=== PATIENT | female | born 1960 | race Caucasian/White ===

== ENCOUNTER 2023-06-03 14:27 | Inpatient (IN) | payer MEDICAID, SELFPAY ==
[2023-06-03] VITALS (18 sets, daily range): BP systolic 144–191; BP diastolic 78–145; PULSE 81–106; RESP 12–24; TEMP 35.5–36.6; O2SAT 88–98; BMI 34.3; BMI 31.1
--- NOTE | 2023-06-03 14:34 | EDS_ITS ---
HPI History of Present Illness Chief Complaint: Shortness of Breath Informant: patient and family Onset/Context/Timing Onset: Weeks Context: gradual Timing: Continuous Quality: Positive for Dyspnea on exertion and Orthopnea Current Severity: Moderate Maximum Severity: Moderate Worsened by: Exertion, Lying flat and Coughing Relieved by: Nothing Associated Symptoms cough and fever Narrative Narrative: 63-year-old, has not seen a doctor for years. Believes she has a history of COPD. Smoker. No home O2. Currently is not on any medications. No allergies. Has not been in the hospital for a lengthy period of time. States she has had increasing shortness of breath of the last several months. Recently has subjective fever and blood-tinged sputum. Denies any drastic weight change. Has lower extremity swelling also. No prior PE or DVT. PE Risk Factors: Negative for Cancer, OCP + Smoking + > 35, Prior DVT or PE, Recent immobilization, Recent surgery or Recent travel Prior similar symptoms: Yes Recent Illness/Hospitalization: No PFSH PFSH Medical History COPD (chronic obstructive pulmonary disease) Allergy/AdvReac Type Severity Reaction Status Date / Time No Known Allergies Allergy Verified 06/03/23 14:31 Surgical History History of right hip replacement Social History Smoking Status: Former smoker ROS ROS ED ROS Narrative Shortness of breath. Cough. Subjective fever. Review of Systems ROS Unobtainable: Denies due to encephalopathy Constitutional Constitutional ED: Reports fever(s); Denies chills Eyes Eyes: Denies blurry vision ENT ENT ED: Denies ear pain Cardiovascular Cardiovascular: Reports chest pain and orthopnea Respiratory/Chest Respiratory/Chest: Reports cough, dyspnea, dyspnea on exertion and orthopnea Gastrointestinal Gastrointestinal: Denies abdominal pain, constipation, diarrhea, melena, nausea or vomiting Genitourinary Genitourinary ED: Denies dysuria or hematuria Musculoskeletal Musculoskeletal: Denies arthralgias Integumentary Denies abscess Neurologic Neurologic: Denies headache(s) Psychiatric Psychiatric: Denies anxiety Endocrine Endocrinology: Denies cold intolerance Hematologic/Lymphatic Hematologic/Lymphatic: Denies easy bleeding or easy bruising Allergic/Immunologic Allergic/Immunologic ED: Denies mouth swelling or tongue swelling EXAM Physical Exam Narrative Exam Narrative: 63-year-old female respiratory distress. As called to the room on arrival the p theron's oxygen was 64%. She had labored breathing but greatly improved quickly with oxygen. Her sister was present in the room. Initial blood pressure 191/145. Afebrile at 96. Oxygen saturation 64% on room air. 96% with a nonrebreather. H EENT exam unremarkable. Neck nontender no JVD. Lungs diminished breath sounds at both bases. Few scattered wheezes. Heart tachycardic rate about 105 no murmur. Chest wall nontender. Abdomen soft nontender. 1+ pitting edema both lower extremities. 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 Normal dorsi plantarflexion. Awake alert. Answering questions following c ommands. No focal deficits. Const Vital Signs: 06/03/23 14:28 06/03/23 14:33 06/03/23 14:33 Temperature 96.0 F L Temperature Source Temporal Pulse Rate 106 H 103 H Respiratory Rate 17 15 Respiratory Effort Respiratory Depth Respiratory Pattern Blood Pressure 191/145 H 168/115 H Blood Pressure Mean 160 132 Pulse Ox 92 98 96 Oxygen Delivery Method Non-Rebreather Non-Rebreather @ 15L/min Non-Rebreather Oxygen Flow Rate (L/min) 06/03/23 14:45 06/03/23 14:45 06/03/23 14:46 Temperature 96 F L Temperature Source Temporal Pulse Rate 97 98 Respiratory Rate 22 H 22 H Respiratory Effort Respiratory Depth Respiratory Pattern Tachypnea Blood Pressure 144/95 H Blood Pressure Mean 111 Pulse Ox 93 94 Oxygen Delivery Method High Flow Non-Rebreather Oxygen Flow Rate (L/min) 10 06/03/23 14:46 06/03/23 15:09 Temperature Temperature Source Pulse Rate 98 Respiratory Rate 18 Respiratory Effort Short of Breath Labored Respiratory Depth Shallow Respiratory Pattern Blood Pressure 160/87 H Blood Pressure Mean 111 Pulse Ox 93 Oxygen Delivery Method Non-Rebreather Room Air Oxygen Flow Rate (L/min) Positive well nourished and well developed; Negative for cachectic, contractures or unkempt General Appearance ED: well developed; Negative for unkempt, cachectic, contractures, NAD or pallor Nutritional Appearance: Negative for cachectic HEENT Reports moist mucous membranes; Denies dry mucous membranes atraumatic; Negative for trauma or tenderness Mouth ED: No dry mucous membranes Mouth: No dry mucous membranes Eyes PERRL and EOMs intact bilaterally General Eye ED: Negative for pale conjunctiva or scleral icterus Neck no lymphadenopathy, supple, no meningeal signs and no JVD General: Negative for tenderness Lymph Lymphatic: Negative for other Chest Wall Chest: Negative for other Resp No normal respiratory effort and No clear to auscultation bilaterally Resp Narrative: Diminished breath sounds bilaterally. Few scattered wheezes. No appreciable rales or rhonchi. Effort and Inspection: Negative for pain with movement Auscultation: wheezes and diminished lung sounds; Negative for rales or rhonchi Cardio regular rhythm, S1 normal heart sound, S2 normal heart sound and no murmurs; Negative for regular rate Rate: tachycardic GI non-tender, non-distended and no masses Inspection: Negative for other Auscultation: normoactive bowel sounds Palpation: soft; Negative for tender, guarding, mass or rebound tenderness present Back/Spine no CVA tenderness and normal to inspection General Back: Negative for CVA tenderness Extremity normal to inspection General Extremety ED: Yes edema; Negative for tenderness General Extremity: edema Neuro oriented x3 and CN's II-XII intact bilaterally Sensorium / Orientation: alert, oriented to person, oriented to place and oriented to time; Negative for orientation impaired, confused, lethargic or stuporous Speech: speech normal Gait (Neuro): Negative for normal gait Motor Exam: strength 5/5 throughout; Negative for general weakness or strength abnormal Psych mental status grossly normal Appearance: Negative for unkempt Attitude: No agitated Mood & Affect: Negative for depressed, anxious or tearful Thought Process: normal thought process Skin no wounds and skin turgor normal General Skin Exam: Negative for jaundice or pallor Rashes: no rashes Trauma: Negative for abrasion MDM MDM MDM Narrative Medical decision making narrative: 63-year-old female history of underlying COPD and smoker. Increasing shortness of breath over the last several weeks to months. Has not seen a doctor for many years and currently is not on any medications. This may be a COPD exacerbation and/or CHF versus pneumonia, RI. Unlikely to be PE. She has no risk factors no prior history. She undergo cardiac workup. She is much improved with oxygen. She will receive albuterol and DuoNeb aerosols and Solu-Medrol IV. Repeat exam patient is doing better on oxygen. I think this is a combination of a COPD flare with secondary CHF. Given the swelling in her legs which is new and the BNP. Also the chest x-ray. She will be treated with IV Lasix until the aerosols and steroids she is already obtained. I spoke to the hospitalist she will be admitted to the PCU. He may get oncology hematology involved due to her hemoglobin of 21. History & Record Review Discussion w/independent historian: Patient and Family Lab Data Attestation: I reviewed the patient's lab results. Lab results narrative: CBC shows a white count of 6. H&H of 21 and 65. Platelets 141. No old labs available for comparison. Chemistries show a gap of 7 normal BUN and creatinine to seven 0.7. Troponin is normal at 18. BNP is elevated at 490. Labs: Laboratory Results - last 24 hr 06/03/23 14:31 WBC 6.1 RBC 6.68 H Hgb 21.1 H* Hct 65.7 H MCV 98.4 MCH 31.6 MCHC 32.1 RDW Std Deviation 56.5 H RDW Coeff of Nick 16.9 H Plt Count 141 L MPV 9.8 Immature Gran % (Auto) 0.500 Neut % (Auto) 79.2 H Lymph % (Auto) 10.9 L [place] % (Auto) 7.4 Eos % (Auto) 1.2 Baso % (Auto) 0.8 Absolute Neuts (auto) 4.8 Absolute Lymphs (auto) 0.66 L Nucleated RBC % 0 Diff Path Review May foll Sodium 140 Potassium 4.0 Chloride 100 Carbon Dioxide 33.0 H Anion Gap 7 BUN 7 Creatinine 0.74 Estim Creat Clear Calc 66.32 Est GFR (MDRD) Af Amer 102 Est GFR (MDRD) Non-Af 85 BUN/Creatinine Ratio 9.5 L Glucose 140 H Calcium 8.9 Troponin I High Sens 18 B-Natriuretic Peptide 490.7 H Radiography Chest X-Ray - ED: 1 View, Read by ED Physician and Right Effusion Diagnostic Testing: Clinical Impression(s) from Imaging Studies Chest X-Ray 06/03/23 14:58 IMPRESSION: Findings suggestive of a CHF with bibasilar atelectasis worse on the right side and small right pleural effusion. Electronically Signed: Joaquim Montenegro MD at 15:16 EDT , Chest x-ray, portable, single view interpreted by myself shows right lower lobe either infiltrate or possible effusion. Rhythm Strip Rhythm Strip: Sinus Rhythm Rate: 99 Ectopy: None EKG Initial EKG: Attestation: I personally reviewed and interpreted this EKG as follows: Interpretation: Sinus Rhythm and No Acute Injury Pattern Comments: # Rhythm rate 99 no acute signs of RI or ischemia. Prior EKG tracings: not available for review Prior: No Prior Discharge Plan Triage Chief Complaint: Shortness of Breath ED Provider: Moisés Cho Dx/Rx/DC Orders Clinical Impression: Acute dyspnea, Elevated hemoglobin, CHF (congestive heart failure), Hypoxia, Acute exacerbation of chronic obstructive pulmonary disease Primary Care Provider: Care Physician,No Primary Referrals: Deejay Shi MD [Non-Staff] - Disposition Disposition: Acute Care Hospital [facility]
--- NOTE | 2023-06-03 14:37 | ED.RN ---
RN AT BEDSIDE TO OBTAIN COVID SWAB. PT STATES OH NO YOU ARE NOT, YOU ARE COMING ANYWHERE NEAR ME WITH COVID. RN EXPLAINED THAT THE SWAB IS TO CHECK FOR COVID, NOT ADMINISTER COVID AND PATIENT STILL REFUSED.
[2023-06-03] MEDS: Albuterol 2.5 MG/3 ML VIAL.NEB. INHALATION (14:45)
[2023-06-03] MEDS: Ipratropium/Albuterol Sulfate 3 ML AMPUL.NEB INHALATION ×2 (14:45→23:06)
--- NOTE | 2023-06-03 14:45 | EKG12_ITS ---
Test Reason : SOB Blood Pressure : / mmHG Vent. Rate : 099 BPM Atrial Rate : 099 BPM P-R Int : 140 ms QRS Dur : 074 ms QT Int : 374 ms P-R-T Axes : 082 121 042 degrees QTc Int : 479 ms Normal sinus rhythm Biatrial enlargement Right axis deviation Pulmonary disease pattern Nonspecific T wave abnormality Prolonged QT Abnormal ECG Confirmed by RIAZ MOSQUEDA, DYLAN ([id number]), editor managing director EUGENE SANTOS ([id number]) on 06/08/2023 8:11:40 AM Referred By: Confirmed By:WENDY MELLO MD
--- NOTE | 2023-06-03 14:58 | RAD_ITS ---
STUDY: X-RAY CHEST REASON FOR EXAM: Female, 63 years old. Chest pain. TECHNIQUE: Single AP portable view of the chest. COMPARISON: None. FINDINGS: EKG electrodes are seen. Vascular congestion and mild degree of CHF. Bibasilar atelectasis slightly worse on the right side with blunting of the right costophrenic angle. Normal size heart. Normal mediastinum and mary. Normal visualized pulmonary arteries. There is atherosclerotic calcification of the aortic arch with tortuosity. There are diffuse degenerative changes of the visualized thoracic spine. Normal visualized ribs, clavicles, and shoulders. There is no demonstrated abnormality of the visualized soft tissue structures of the upper abdomen. RAD/Chest 1 View (Portable) IMPRESSION: Findings suggestive of a CHF with bibasilar atelectasis worse on the right side and small right pleural effusion. Electronically Signed: Joaquim Montenegro MD at 15:16 EDT ,
[2023-06-03 15:01] LABS: Absolute Lymphocyte Count 0.66 X10^3/uL (0.83-4.51); Absolute Neutrophil Count 4.8 X10^3/uL (2.0-7.7); Basophil# 0.05 X10^3/uL; Basophil% 0.8 % (0-1); Eosinophil# 0.07 X10^3/uL; Eosinophils% 1.2 % (0-5); Hemoglobin 21.1 g/dL (12.0-15.0); Lymphocyte # 0.66 X10^3/ul (0.83-4.51); Lymphocyte % 10.9 % (19-41); Mean Corp Hgb Conc 32.1 g/dL (32-36); Mean Corpuscular Hgb 31.6 pg (27.0-32.0); Mean Corpuscular Volume 98.4 fL (81-99); Mean Platelet Vol. 9.8 fl (6.2-12.0); Monocyte# 0.45 X10^3/uL; Monocyte% 7.4 % (0-10); NRBC Flagged by Analyzer 0 % (0-5); Neutrophil % 79.2 % (47-70); Platelet Count 141 K/mm3 (150-450); RBC Distribution Width CV 16.9 % (11.6-14.6); RBC Distribution Width SD 56.5 fl (35.1-43.9); Red Blood Count 6.68 M/mm3 (4.2-5.4); White Blood Count 6.1 K/mm3 (4.4-11.0)
[2023-06-03 15:02] LABS: Hematocrit 65.7 % (37-47)
[2023-06-03] MEDS: MethylPREDNISolone 125 MG/2 ML Vial IV (15:07)
[2023-06-03 15:16] LABS: Anion Gap 7 (5-15); BUN 7 mg/dL (7-18); BUN/Creat Ratio 9.5 RATIO (10-20); Calcium,Total 8.9 mg/dL (8.5-10.1); Chloride 100 mmol/L (98-107); Creatinine, Serum 0.74 mg/dL (0.55-1.02); EST Glomerular Filtration Rate 85 mL/min (>60); Est Glom Filt Rate - Afr Amer 102 mL/min (>60); Estimated Creatinine Clearance 66.32 ml/min; Glucose 140 mg/dL (74-106); Sodium Level 140 mmol/L (136-145); Troponin-I HS 18 pg/mL (3.0-54.0)
[2023-06-03 15:54] LABS: BNP,B-Type NATRIURETIC PEPTIDE 490.7 pg/mL (0-100)
--- NOTE | 2023-06-03 16:18 | NURSING ---
PCU TERELETSKY COPD FLAIR, HYPOXIA, CHF, ELEVATED HEMOGLOBIN
--- NOTE | 2023-06-03 16:20 | ED.RN ---
Purewick catheter applied
[2023-06-03] MEDS: Furosemide 40 MG/4 ML Vial IV ×2 (16:25→21:10)
--- NOTE | 2023-06-03 17:34 | HP.PCM.HOS_ITS ---
HPI - General General Date of Admission: 06/03/23 Date of Service: 06/03/23 Chief Complaint: Shortness of breath HPI Narrative DOUG DE LA TORRE, is a 63 F who presents to the emergency room at [facility] with chief complaint of shortness of breath over the last several days, patient denies any chest pain. Patient has a history of COPD, she has not been to a physician in 5 years, she takes no medications. Patient was noted to have a pulse ox of 64% on room air at triage. Evaluation of the patient in the emergency room revealed her to be tachypneic and cyanotic, she appeared to have moderate respiratory distress on examination. Patient had generalized edema of both lower legs along with water droplets over the skin of her lower legs. Patient was alert and able to answer simple questions. Workup in the emergency room included labs which showed an elevated hemoglobin at 21.1, chemistry profile was unremarkable, beta natruretic peptide was elevated at 490. Patient's chest x-ray showed evidence of vascular congestion- findings were suggestive of CHF with bibasilar atelectasis worse on the right side and the small right pleural effusion. I talked with by phone about the patient's elevated hemoglobin, he recommended obtaining a lab test which I put him as a miscellaneous lab test, he recommends the patient see him in the office in 2 weeks, he does not feel he needs to see the patient in the hospital. Patient will be admitted to PCU, she will be given IV Lasix, an echocardiogram will be performed, she will be placed on aerosol treatments, I do not feel that she has a flareup of COPD at this point-there is no wheezing on auscultation of her lung hernández today, she had some bibasilar crackles and decreased breath sounds overall. [facility] Medical History COPD (chronic obstructive pulmonary disease) Home Medications naproxen sodium 220 mg capsule (Aleve) 440 mg PO DAILY PRN pain 06/03/23 [History Last Taken Unknown] Allergy/AdvReac Type Severity Reaction Status Date / Time No Known Allergies Allergy Verified 06/03/23 14:31 Surgical History History of right hip replacement Social History Smoking Status: Former smoker ROS Constitutional Constitutional: Reports weakness; Denies anorexia, change in weight, chills, fatigue, fever(s) or night sweats Eyes Eyes: Denies blurry vision, change in vision, discharge from eye(s) or eye pain Cardiovascular Cardiovascular: Reports dyspnea on exertion and edema; Denies chest pain, claudication, palpitations or rapid heart rate Respiratory/Chest Respiratory/Chest: Reports shortness of breath at rest and shortness of breath with exertion; Denies cough or hemoptysis Gastrointestinal Gastrointestinal: Denies abdominal pain, constipation, diarrhea, hematemesis, hematochezia, melena, nausea or vomiting Genitourinary Genitourinary: Denies dysuria, hematuria, urinary frequency, urinary hesitancy, urinary incontinence or urinary urgency Musculoskeletal Musculoskeletal: Denies back pain, joint pain, joint stiffness, joint swelling, myalgias or neck pain Neurologic Neurologic: Denies abnormal gait, abnormal speech, confusion, disequilibrium, dizziness, focal weakness, headache(s), loss of vision, numbness, other visual disturbances, paresthesias, syncope or tingling Psychiatric Psychiatric: Denies anxiety, cognitive impairment, depression, irritability, mood swings or suicidal ideation Endocrine Endocrinology: Denies change in body appearance, cold intolerance, excessive sweating, heat intolerance, polydipsia or polyuria Hematologic/Lymphatic Hematologic/Lymphatic: Denies none, anemia, easy bleeding, easy bruising or lymphadenopathy Allergic/Immunologic Allergic/Immunologic: Denies rhinitis, urticaria, eczemia or asthma Vital Signs Vital Signs Vital Signs: 06/03/23 14:28 06/03/23 14:33 06/03/23 14:33 Temperature 96.0 F L Temperature Source Temporal Pulse Rate 106 H 103 H Respiratory Rate 17 15 Respiratory Effort Respiratory Depth Respiratory Pattern Blood Pressure 191/145 H 168/115 H Blood Pressure Mean 160 132 Pulse Ox 92 98 96 Oxygen Delivery Method Non-Rebreather Non-Rebreather @ 15L/min Non-Rebreather Oxygen Flow Rate (L/min) 06/03/23 14:45 06/03/23 14:45 06/03/23 14:46 Temperature 96 F L Temperature Source Temporal Pulse Rate 97 98 Respiratory Rate 22 H 22 H Respiratory Effort Respiratory Depth Respiratory Pattern Tachypnea Blood Pressure 144/95 H Blood Pressure Mean 111 Pulse Ox 93 94 Oxygen Delivery Method High Flow Non-Rebreather Oxygen Flow Rate (L/min) 10 06/03/23 14:46 06/03/23 15:09 06/03/23 16:07 Temperature Temperature Source Pulse Rate 98 89 Respiratory Rate 18 17 Respiratory Effort Short of Breath Labored Respiratory Depth Shallow Respiratory Pattern Blood Pressure 160/87 H Blood Pressure Mean 111 Pulse Ox 93 92 Oxygen Delivery Method Non-Rebreather High Flow Nasal Cannula Oxygen Flow Rate (L/min) 8 8 06/03/23 16:07 06/03/23 16:11 06/03/23 16:55 Temperature 97 F L 97 F L Temperature Source Tympanic Tympanic Pulse Rate 89 89 87 Respiratory Rate 17 21 H 16 Respiratory Effort Respiratory Depth Respiratory Pattern Blood Pressure 158/85 H 158/85 H 159/78 H Blood Pressure Mean 109 109 105 Pulse Ox 92 91 92 Oxygen Delivery Method High Flow High Flow High Flow Oxygen Flow Rate (L/min) 8 8 8 Weight Weight: 87.6 kg Body Mass Index (BMI) 31.1 Physical Exam Const alert, oriented x3 and no apparent distress Constitutional Narrative: Patient appears older than her stated age General Appearance: cooperative and well developed Orientation / Consciousness: awake, oriented to person, oriented to place and oriented to time HEENT normocephalic, head/scalp atraumatic, hearing grossly normal bilaterally and moist oral mucous membranes Eyes PERRL, EOMs intact bilaterally and conjunctivae normal Neck supple, no JVD, thyroid normal and no carotid bruits General: trachea midline Resp Resp Narrative: Patient is tachypneic, she is using accessory muscles, she appears in moderate respiratory distress, patient has decreased breath sounds bilaterally with inspiratory rales at the bases Auscultation: rales bilateral lower; Negative for rhonchi or wheezes Cardio regular rate, regular rhythm, S1 normal heart sound, S2 normal heart sound, no murmurs, no rub and no gallops GI normal to inspection, nondistended, normoactive bowel sounds, soft to palpation, non-tender and non-distended Extremity Extremity Narrative: Patient has generalized edema over both lower legs with weeping of fluid from the skin, patient has evidence of cyanosis of her toes and lower legs on first exam Skin no rashes or lesions noted General Skin Exam: no breakdown Neuro oriented x3, CN's II-XII intact bilaterally, moves all extremities, no focal motor deficits and no sensory deficits noted Sensorium / Orientation: awake, alert, oriented to person, oriented to place and oriented to time Speech: speech normal Psych affect normal Results Lab / Micro Data 06/03/23 14:31 06/03/23 14:31 Labs: Laboratory Results - last 24 hr 06/03/23 14:31: WBC 6.1, RBC 6.68 H, Hgb 21.1 H*, Hct 65.7 H, MCV 98.4, MCH 31.6, MCHC 32.1, RDW Std Deviation 56.5 H, RDW Coeff of Nick 16.9 H, Plt Count 141 L, MPV 9.8, Immature Gran % (Auto) 0.500, Neut % (Auto) 79.2 H, Lymph % (Auto) 10.9 L, [place] % (Auto) 7.4, Eos % (Auto) 1.2, Baso % (Auto) 0.8, Absolute Neuts (auto) 4.8, Absolute Lymphs (auto) 0.66 L, Nucleated RBC % 0, Diff Path Review May foll, Sodium 140, Potassium 4.0, Chloride 100, Carbon Dioxide 33.0 H, Anion Gap 7, BUN 7, Creatinine 0.74, Estim Creat Clear Calc 66.32, Est GFR (MDRD) Af Amer 102, Est GFR (MDRD) Non-Af 85, BUN/Creatinine Ratio 9.5 L, Glucose 140 H, Calcium 8.9, Troponin I High Sens 18, B-Natriuretic Peptide 490.7 H Rhythm Strip Rhythm Strip: Sinus Rhythm Rate: 99 Ectopy: None Radiology Impression Chest X-Ray 06/03/23 14:58 IMPRESSION: Findings suggestive of a CHF with bibasilar atelectasis worse on the right side and small right pleural effusion. Electronically Signed: Joaquim Montenegro MD at 15:16 EDT , Assessment & Plan Assessment/Plan (1) CHF (congestive heart failure): PLAN: Plan 1. Acute hypoxic respiratory failure-patient will be admitted to PCU, pulse ox will be monitored, patient will receive IV diuresis and aerosol treatments. #2 acute congestive heart failure-type unknown, patient will have an echocardiogram performed, she will be given IV Lasix and labs will be monitored, chest x-ray will be repeated tomorrow #3 chronic obstructive pulmonary disease-patient will be placed on DuoNeb aerosols and budesonide aerosols, I do not think the patient needs IV Solu- Medrol at this point #4 increased hemoglobin-etiology unclear, again I have ordered a test through [facility], patient will need follow-up with Dr Coulter in 2 weeks in the office after she is discharged #5 noncompliance with medical regimen-complicates care, medical course, recovery, and prognosis Total clinical time spent by myself addressing the patient's medical issues, reviewing her data, and collaborating with patient's care team: 55 minutes Charges/Coding Visit Charges Inpatient E&M: 76037 Init Hosp L2
--- NOTE | 2023-06-03 18:23 | ECHOD_ITS ---
Reason For Study: CHF Procedure This was a 2D Doppler, Color Flow transthoracic echocardiogram. Exam performed portable in patient room. Left Ventricle Normal LV size. The estimated ejection fraction is 65 %. Normal diastology for age. No regional wall motion abnormalities noted. Right Ventricle Normal RV size. Normal systolic function. Atria Normal left atrium. Normal right atrium. No doppler evidence for ASD. Mitral Valve There is moderate mitral annular calcification. There is no mitral valve stenosis. No mitral valve insufficiency. Tricuspid Valve There is no tricuspid stenosis. Unable to estimate RV systolic pressure due to insufficient tricuspid regurgitant envelope. Trivial tricuspid valve insufficiency. Aortic Valve Trisinus/trileaflet aortic valve. There is no aortic stenosis. No aortic valve insufficiency. Pulmonic Valve There is no pulmonic valvular stenosis. No pulmonic valve insufficiency. Great Vessels Normal aortic root. Pericardium/Pleural No pericardial effusion. MMode/2D Measurements & Calculations LVIDd: 4.2 cm IVSd: 1.2 cm Ao root diam: 3.3 cm LVIDs: 2.6 cm LVPWd: 1.2 cm RVDd: 3.6 cm FS: 37.5 % LAV(MOD-bp): 50.3 ml LVAd ap4: 20.0 cm2 LVAd ap2: 18.5 cm2 LAV(MOD-bp) Indexed: 25.2 ml/m2 LVLd ap4: 6.7 cm LVLd ap2: 6.2 cm LAV(MOD-sp2): 52.4 ml EDV(MOD-sp4): 48.9 ml EDV(MOD-sp2): 48.4 ml LAV(MOD-sp4): 47.8 ml EDV(sp4-el): 51.0 ml EDV(sp2-el): 46.7 ml LVAs ap4: 9.4 cm2 LVAs ap2: 8.7 cm2 LVLs ap4: 6.0 cm LVLs ap2: 5.0 cm ESV(MOD-sp4): 13.0 ml ESV(MOD-sp2): 14.1 ml ESV(sp4-el): 12.4 ml ESV(sp2-el): 13.0 ml EF(MOD-sp4): 73.3 % EF(MOD-sp2): 70.9 % EF(sp4-el): 75.6 % SV(MOD-sp4): 35.8 ml SV(MOD-sp2): 34.4 ml SV(sp4-el): 38.6 ml LA dimension(2D): 4.4 cm LA A4 area: 18.1 cm2 RA A4 area: 17.4 cm2 Time Measurements MV dec time: 0.31 sec Doppler Measurements & Calculations MV E max robin: 69.6 cm/sec Lat Peak E' Orbin: 5.9 cm/sec Med Peak E' Robin: 4.8 cm/sec MV A max robin: 111.4 cm/sec E/E' lat: 11.8 E/E' med: 14.5 MV E/A: 0.62 MV V2 max: 130.1 cm/sec MV P1/2t max robin: 71.9 cm/sec Ao V2 max: 120.5 cm/sec MV max P.8 mmHg MV P1/2t: 91.6 msec Ao max P.8 mmHg MV V2 mean: 67.0 cm/sec MV dec slope: 230.0 cm/sec2 Ao V2 mean: 84.8 cm/sec MV mean P.1 mmHg Ao mean P.3 mmHg MV V2 VTI: 20.5 cm MVA(P1/2t): 2.4 cm2 Ao V2 VTI: 26.3 cm AV (velocity ratio): 0.78 LV V1 max: 103.6 cm/sec PA V2 max: 107.1 cm/sec LV V1 max P.3 mmHg PA V2 mean: 70.3 cm/sec LV V1 mean P.7 mmHg LV V1 mean: 60.5 cm/sec LV V1 VTI: 20.4 cm ECHO/Echo Complete Interpretation Summary The estimated ejection fraction is 65 %. Ordering Physician: Harley Mcgee Referring Physician: CARLEY PCP Performed By: Leigh Ann Tong, KELLYCS, RVT
[2023-06-03] MEDS: 0.9% Saline Lock 10 ML Syringe IV (21:10)
[2023-06-03] MEDS: Heparin Injection (Vial) 5,000 UNIT/ML VIAL 5000 UNIT SC (21:10)
[2023-06-03] MEDS: Nystatin Powder 15gm Bottle 1 APPLIC TOPICAL (21:10)
[2023-06-03] MEDS: Budesonide Respules 0.5 MG/2 ML AMPUL.NEB. INHALATION (23:06)
[2023-06-04] VITALS (12 sets, daily range): BP systolic 99–134; BP diastolic 64–75; PULSE 74–91; RESP 12–30; TEMP 36.2–36.6; O2SAT 90–98; BMI 31.1
[2023-06-04] MEDS: Nystatin Powder 15gm Bottle 1 APPLIC TOPICAL ×3 (04:53→21:20)
[2023-06-04] MEDS: Furosemide 40 MG/4 ML Vial IV ×3 (04:53→21:20)
[2023-06-04] MEDS: 0.9% Saline Lock 10 ML Syringe IV ×2 (04:54→13:19)
--- NOTE | 2023-06-04 05:55 | RAD_ITS ---
INDICATION: CHF EXAMINATION/TECHNIQUE: X-RAY - XR Chest 1 View COMPARISON: 06/03/2023. FINDINGS: LINES/DEVICES: None. LUNGS: Bibasilar atelectasis versus infiltrates. Small bilateral pleural effusions. No evidence of a pneumothorax. MEDIASTINUM AND CARDIOVASCULAR STRUCTURES: Cardiac silhouette is normal in size and contour. Mediastinum is unremarkable. BONES AND SOFT TISSUES: No acute abnormality. RAD/Chest 1 View (Portable) IMPRESSION: Bibasilar atelectasis versus infiltrates and small bilateral pleural effusions. Electronically Signed: Harinder Mcdaniels DO at 6:28 EDT ,
[2023-06-04 06:35] LABS: Absolute Lymphocyte Count 0.39 X10^3/uL (0.83-4.51); Absolute Neutrophil Count 3.6 X10^3/uL (2.0-7.7); Basophil# 0.02 X10^3/uL; Basophil% 0.5 % (0-1); Lymphocyte # 0.39 X10^3/ul (0.83-4.51); Lymphocyte % 9.3 % (19-41); Mean Corp Hgb Conc 32.2 g/dL (32-36); Mean Corpuscular Hgb 30.8 pg (27.0-32.0); Mean Corpuscular Volume 95.8 fL (81-99); Mean Platelet Vol. 9.6 fl (6.2-12.0); Monocyte% 4.8 % (0-10); NRBC Flagged by Analyzer 0 % (0-5); Neutrophil # 3.56 X10^3/uL (2.7-7.7); Neutrophil % 84.9 % (47-70); POSITIVE DIFFERENTIAL YES; Platelet Count 161 K/mm3 (150-450); RBC Distribution Width CV 16.1 % (11.6-14.6); RBC Distribution Width SD 52.9 fl (35.1-43.9); Red Blood Count 6.49 M/mm3 (4.2-5.4); White Blood Count 4.2 K/mm3 (4.4-11.0)
[2023-06-04 06:38] LABS: Hematocrit 62.2 % (37-47)
[2023-06-04 06:39] LABS: Differential Indicated SCAN CRITERIA MET
[2023-06-04 07:01] LABS: Differential Comment SCANNED
[2023-06-04 07:06] LABS: Anion Gap 6 (5-15); BUN 10 mg/dL (7-18); BUN/Creat Ratio 14.1 RATIO (10-20); Chloride 97 mmol/L (98-107); Creatinine, Serum 0.71 mg/dL (0.55-1.02); EST Glomerular Filtration Rate 88 mL/min (>60); Est Glom Filt Rate - Afr Amer 107 mL/min (>60); Estimated Creatinine Clearance 74.94 ml/min; Glucose 116 mg/dL (74-106); Potassium 3.9 mmol/L (3.5-5.1); Sodium Level 139 mmol/L (136-145)
[2023-06-04] MEDS: Ipratropium/Albuterol Sulfate 3 ML AMPUL.NEB INHALATION ×3 (07:12→19:13)
[2023-06-04] MEDS: Budesonide Respules 0.5 MG/2 ML AMPUL.NEB. INHALATION ×2 (07:30→19:13)
--- NOTE | 2023-06-04 09:18 | CASEMGMT ---
Addendum entered by Homa Boyle 06/04/23 09:52: Social Work SW called both [employer] and [employer], neither had any resources for low or no cost house cleaning. SW spoke w/pt again, explained this to her. She is open to a referral to [facility], referral made. She also asked for information on local house cleaning agencies, states is willing to pay for services. SW looked up local cleaning agencies and provided pt a list of agencies. SW remains available for any additional resources. SYDNI Jimenez Original Note: Social Work SW saw pt for SDOH trigger and for self pay status. SW informed pt that someone from [employer] should be reaching out to help with a Medicaid application. Multiple resources given as well, as outlined in the SDOH assessment. SYDNI Jimenez
[2023-06-04] MEDS: Heparin Injection (Vial) 5,000 UNIT/ML VIAL 5000 UNIT SC ×2 (10:09→21:21)
--- NOTE | 2023-06-04 11:26 | PN_ITS ---
Subjective Subjective Patient seen and examined. SHe stil remains short of breath. She is on BIPAP and couldnt be weaned off BIPAP. She denied any chest pain, palpitations, dizziness or any other symptoms. Review of systems is otherwise negative. She has otherwise remained hemodynamically stable. Objective Data Objective Data Vital Signs: Vital Signs Temp Pulse Resp BP Pulse Ox O2 Del Method O2 Flow Rate 97.4 F L 74 20 H 127/66 H 94 Bi-pap 8 06/04/23 09:12 06/04/23 09:12 06/04/23 09:12 06/04/23 09:12 06/04/23 09:12 06/04/23 09:12 06/03/23 16:55 FiO2 80 06/04/23 09:12 Oxygen Flow Rate (L/min) 8 Oxygen Delivery Method Bi-pap Weight: 193 lb 1.999 oz Body Mass Index (BMI) 31.1 Intake & Output: Intake and Output for Last 24 Hours 06/02/23 06/03/23 06/04/23 23:59 23:59 23:59 Intake Total 100 / 100 120 / 120 Output Total 1600 / 1600 400 / 400 Balance -1500 / -1500 -280 / -280 Lab / Micro Data 06/04/23 06:08 06/04/23 06:08 Labs: Laboratory Results - last 24 hr 06/03/23 14:31: WBC 6.1, RBC 6.68 H, Hgb 21.1 H*, Hct 65.7 H, MCV 98.4, MCH 31.6, MCHC 32.1, RDW Std Deviation 56.5 H, RDW Coeff of Nick 16.9 H, Plt Count 141 L, MPV 9.8, Immature Gran % (Auto) 0.500, Neut % (Auto) 79.2 H, Lymph % (Auto) 10.9 L, Whitley % (Auto) 7.4, Eos % (Auto) 1.2, Baso % (Auto) 0.8, Absolute Neuts (auto) 4.8, Absolute Lymphs (auto) 0.66 L, Nucleated RBC % 0, Diff Path Review May foll, Sodium 140, Potassium 4.0, Chloride 100, Carbon Dioxide 33.0 H, Anion Gap 7, BUN 7, Creatinine 0.74, Estim Creat Clear Calc 66.32, Est GFR (MDRD) Af Amer 102, Est GFR (MDRD) Non-Af 85, BUN/Creatinine Ratio 9.5 L, Glucose 140 H, Calcium 8.9, Troponin I High Sens 18, B-Natriuretic Peptide 490.7 H 06/04/23 06:08: WBC 4.2 L, RBC 6.49 H, Hgb 20.0 H*, Hct 62.2 H, MCV 95.8, MCH 30.8, MCHC 32.2, RDW Std Deviation 52.9 H, RDW Coeff of Nick 16.1 H, Plt Count 161, MPV 9.6, Immature Gran % (Auto) 0.500, Neut % (Auto) 84.9 H, Lymph % (Auto) 9.3 L, Whitley % (Auto) 4.8, Eos % (Auto) 0.0, Baso % (Auto) 0.5, Absolute Neuts (auto) 3.6, Absolute Lymphs (auto) 0.39 L, Nucleated RBC % 0, Differential Comment SCANNED, Diff Path Review February, Sodium 139, Potassium 3.9, Chloride 97 L, Carbon Dioxide 36.0 H, Anion Gap 6, BUN 10, Creatinine 0.71, Estim Creat Clear Calc 74.94, Est GFR (MDRD) Af Amer 107, Est GFR (MDRD) Non-Af 88, BUN/Creatinine Ratio 14.1, Glucose 116 H, Calcium 9.0 Radiography Diagnostic Testing: Radiology Impression Chest X-Ray 06/03/23 14:58 IMPRESSION: Findings suggestive of a CHF with bibasilar atelectasis worse on the right side and small right pleural effusion. Electronically Signed: Joaquim Montenegro MD at 15:16 EDT , Chest X-Ray 06/04/23 05:55 IMPRESSION: Bibasilar atelectasis versus infiltrates and small bilateral pleural effusions. Electronically Signed: Harinder Mcdaniels DO at 6:28 EDT , Rhythm Strip Rhythm Strip: Sinus Rhythm Rate: 99 Ectopy: None Physical Exam Const alert, oriented x3 and no apparent distress General Appearance: cooperative HEENT normocephalic, head/scalp atraumatic and moist oral mucous membranes HEENT Narrative: lips are mildly cyanotic Eyes PERRL and EOMs intact bilaterally Neck no lymphadenopathy, supple and thyroid normal Lymph Lymphatic: no lymphadenopathy noted and no lymphedema noted Resp Resp Narrative: Moderately diminished breath sounds bibasally, no wheezes or crackles. On BIPAP Cardio regular rate, regular rhythm, S1 normal heart sound, S2 normal heart sound and no murmurs GI normal to inspection, nondistended, normoactive bowel sounds, soft to palpation, non-tender and non-distended Extremity normal capillary refill, no clubbing, cyanosis or edema and no calf tenderness General Extremity: clubbing and no tenderness to palpation of joints or extremities Skin General Skin Exam: no breakdown Neuro CN's II-XII intact bilaterally, no focal motor deficits, no sensory deficits noted and deep tendon reflexes 2+ bilaterally Motor Exam: strength 5/5 throughout and general weakness Psych thought process normal, cooperative and affect normal Appearance: appropriate Assessment & Plan Assessment/Plan (1) Hypoxia: (2) Acute exacerbation of chronic obstructive pulmonary disease: (3) CHF (congestive heart failure): (4) Acute dyspnea: (5) Elevated hemoglobin: PLAN: Plan #Acute hypoxic respiratory failure due to COPD exacerbation and probable heart failure * patient hasnt seen a doctor in at least 5 years. * she says she cut down from smoking at least a pack daily to 1 cigarette daily 2 weeks ago. She has been smoking for at least 40 years * CXR showed evidence of pulmonary vascular congestion. * breathing treatment with bronchodilators * IV lasix * will start IV solumedrol due to presumptive COPD diagnosis * titrate oxygen to maintain sats >90% * 2D echo showed EF of 65% with normal diastole for age and no regional wall motion abnormalities noted * will get a CTA of the chest due to persistent shortness of breath and elevated BNP, though echo is normal. * #Polycythemia * hemoglobin was elevated at 21 on admission; is 20 today. * Patient has bilateral clubbing and does look a bit cyanotic around her lips and fingers. 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 This is supported by her elevated bicarb of 36, likely in response to chronically elevated CO2. * on admission, hematology was spoken to on the phone by admitting hospitalist; AGUEDA HEREDIA. * #Nicotine dependence: counseled to quit. Has over a 40 pack year smoking history. Nicotine patch 21mg daily DVT prophylaxis: lovenox Charges/Coding Visit Charges Inpatient E&M: 23931 Subs Hosp L3
--- NOTE | 2023-06-04 11:53 | CT_ITS ---
STUDY: CTA CHEST REASON FOR EXAM: Female, 63 years old. Shortness of breath RADIATION DOSAGE (If Supplied By Facility): CTDIvol = ( 13.53 ) mGy, DLP = ( 509.07 ) mGycm TECHNIQUE: The examination was performed with the intravenous administration of IV 100mL Isovue-370. Post-processing of the angiographic images was performed, with multiplanar reformation and 3D reconstruction. Individualized dose optimization techniques were used for this CT. COMPARISON: Comparison is made with prior chest regressed than earlier today. FINDINGS: Normal enhancement of the main pulmonary artery and right and left pulmonary arteries. Normal enhancement of the bilateral peripheral pulmonary arteries. There is no demonstrated pulmonary embolism. Normal thoracic aorta and visualized great vessels. There is no demonstrated aortic dissection. There are calcifications of the coronary arteries. Mild degree of anterior pericardial thickening. Normal mediastinum. Normal hilar regions. There is a 2.2 cm x 2.3 cm x 2.8 cm heterogeneous nodular density which is pleural-based in the anterior aspect of the right lower lobe abutting the minor fissure. This may represent a focal infiltrate. Radiographic follow-up is recommended. Hyperinflation. Emphysematous changes worse in the upper lobes with centrilobular emphysema. Bibasilar infiltrates left greater than right. Small right pleural effusion. Normal chest wall structures. There are degenerative changes of thoracic spine. Normal visualized upper abdomen. CT/CTA Chest W/WO Contrast IMPRESSION: Bibasilar infiltrates left greater than right with a small right pleural effusion. Irregular infiltrate in the anterior aspect of the right lower lobe as described. This abuts the right minor fissure. Radiographic follow-up is recommended. Electronically Signed: Joaquim Montenegro MD at 13:21 EDT ,
[2023-06-04 12:53] LABS: Pathologist Review Reviewed
[2023-06-04 12:57] LABS: Pathologist Review Reviewed
--- NOTE | 2023-06-04 13:35 | CASEMGMT ---
GRACIE LICONA Face to Face with patient for initial transition planning/care coordination assessment. RN CM introduced self and role at [facility]. Patient lying in bed, alert and oriented. Patient willing to participate in assessment and is able to answer all questions appropriately. Care providers, pharmacy, and demographics verified. Patient wishes to discharge home, denies need for home health at this time. Patient states he has no further needs or concerns at this time. CM to follow for discharge planning needs that may arise. PCP: Patient states she has PCP but cant remember name and she hasn't seen him in 2 years, CM to provide PCP list Specialists: none Preferred [facility]acy: [facility] Insurance: self pay Prescription Benefit: none Living Will/HPOA: none LNOK: sister, son Living Arrangements: Patient lives with son in a single story home with 3-4 steps and railing to enter the home. Patient is independent at home. Transportation: self, son DME/HHC: Patient denies DME in the home. No previous HHC or SNF. Will monitor for home oxygen at discharge. Disposition Plan: Patient to discharge home with family support and follow-up plans in place. Will monitor for home oxygen at discharge. Rosemarie ASCENCIO, RN, CM
--- NOTE | 2023-06-04 15:16 | CHAPLAIN ---
Type of Pastoral Visit ___ Initial Visit ___ Follow-up Visit ___ On-call Visit ___ General Patient Visit ___ Spiritual Assessment ___ Family Conference ___ Bereavement ___ Rapid Response ___ Code Blue ___ Other (describe below) Pastoral Care Referral From ___ Patient ___ Family ___ Nurse ___ Physician ___ Electronics Tech ___ Counter Intelligence Technician ___ Other (describe below) Sacrament/Intervention ___ Active listening ___ Anointing ___ Alevism ___ Bereavement ___ Communion ___ Carissa exploration ___ ___ Life review ___ Prayer ___ Reconciliation ___ Sacrament of Sick ___ Supportive presence ___ Wedding ___ Other (describe below) Pastoral Comments three attempts to make a visit with this patient; pt has a bi-pap on and is sleeping; no attempt made to awaken the patient
[2023-06-04] MEDS: Potassium Chloride Oral Tablet 20 MEQ PO (17:53)
--- NOTE | 2023-06-04 18:37 | NURSING ---
Reviewed charting with Zoraida Younger RN
--- NOTE | 2023-06-04 18:54 | CPS ---
went to collect abg that was from 12 -pt on 12 l/m high flow nc -sats 91% nurse states pt came off bipap to eat at 1800-agb not done-nurse aware
[2023-06-05] VITALS (16 sets, daily range): BP systolic 121–144; BP diastolic 67–85; PULSE 67–102; RESP 12–29; TEMP 36.6–36.7; O2SAT 91–95; BMI 28.8
[2023-06-05] MEDS: Ipratropium/Albuterol Sulfate 3 ML AMPUL.NEB INHALATION ×4 (01:11→19:29)
[2023-06-05] MEDS: Furosemide 40 MG/4 ML Vial IV ×3 (05:58→21:43)
[2023-06-05] MEDS: Nystatin Powder 15gm Bottle 1 APPLIC TOPICAL ×3 (06:02→21:43)
[2023-06-05 06:14] LABS: Absolute Lymphocyte Count 0.31 X10^3/uL (0.83-4.51); Absolute Neutrophil Count 5.3 X10^3/uL (2.0-7.7); Basophil# 0.03 X10^3/uL; Basophil% 0.5 % (0-1); Hemoglobin 19.9 g/dL (12.0-15.0); Lymphocyte # 0.31 X10^3/ul (0.83-4.51); Lymphocyte % 5.4 % (19-41); Mean Corp Hgb Conc 32.3 g/dL (32-36); Mean Corpuscular Hgb 30.9 pg (27.0-32.0); Mean Corpuscular Volume 95.5 fL (81-99); Mean Platelet Vol. 9.6 fl (6.2-12.0); Monocyte# 0.15 X10^3/uL; Monocyte% 2.6 % (0-10); NRBC Flagged by Analyzer 0 % (0-5); Neutrophil # 5.26 X10^3/uL (2.7-7.7); Neutrophil % 90.8 % (47-70); POSITIVE DIFFERENTIAL YES; Platelet Count 154 K/mm3 (150-450); RBC Distribution Width CV 16.4 % (11.6-14.6); RBC Distribution Width SD 53.3 fl (35.1-43.9); Red Blood Count 6.45 M/mm3 (4.2-5.4); White Blood Count 5.8 K/mm3 (4.4-11.0)
--- NOTE | 2023-06-05 06:15 | EX.PCM.CONCC ---
Assessment & Plan Assessment/Plan (1) Acute hypoxemic respiratory failure: PLAN: Plan RECOMMENDATIONS: 1. Wean supplemental oxygen to maintain saturations at or above 90%. 2. Diuresis as tolerated by hemodynamics and renal function. 3. Initiate empiric antimicrobials. Check procalcitonin. Plan to complete 7 days of therapy. 4. Check MRSA screen. If positive, add vancomycin. 5. Send sputum for culture. 6. Continue bronchodilators and steroids. 7. BiPAP therapy with naps and nightly. 8. Obtain follow-up CT scan in 6 weeks. 9. Outpatient pulmonary follow-up within 2 weeks of discharge is warranted. IMPRESSIONS: 1. Acute hypoxemic respiratory failure Clinical concern for undiagnosed obstructive lung disease and heart failure with preserved ejection fraction contributing to acute presentation. The patient has bilateral emphysematous changes on CT imaging of the chest along with a nodular density, which is pleural-based, in the right lower lobe. The patient also has bibasilar infiltrates and a right-sided pleural effusion. At this time, recommend initiation of antimicrobials, with goals to complete 7 days of therapy. I would obtain and send sputum for culture. Continue to wean supplemental oxygen as tolerated to maintain saturations at or above 90%. Recommend continuing BiPAP therapy, at a minimum, with naps and nightly. The nodular density noted on CT imaging will need further follow-up evaluation. I would recommend that a repeat CT scan be completed in 6 weeks. If this lesion persists, will need to consider percutaneous biopsy. Otherwise, continue supportive measures including scheduled bronchodilators and steroids. The patient will require close outpatient pulmonary follow-up so that baseline PFTs can be obtained. It is reasonable to continue gentle diuresis as tolerated by hemodynamics and renal function. 2. Polycythemia Most likely secondary to underlying lung disease leading to chronic hypoxemia. As noted above, the patient will require further outpatient pulmonary workup. I do anticipate a home-going supplemental oxygen requirement. The patient will ultimately follow-up with hematology after discharge as well. 3. History of tobacco dependency The patient reported that she quit smoking completely approximately 3 weeks ago. Ongoing tobacco cessation was strongly recommended. This note was generated with [employer] software. It may contain incorrect words, spelling, and punctuation that were not noted in checking the note before signing. HPI Consult Data Date of Consult: 06/05/23 HPI Narrative Reason for Consultation: Respiratory failure HPI Narrative: The patient is a 63-year-old female, with a history as outlined below, who presented to the emergency department on June 03 with complaints of shortness of breath. The patient has an extensive tobacco abuse history of upwards of 2 packs of cigarettes per day, but stated that she quit completely 3 weeks ago. She stated that several years ago she was told by an outside provider that she potentially had COPD. She was apparently given a trial of Trelegy Ellipta, but no longer utilizes the medication. She does not utilize supplemental oxygen at her baseline. On presentation to the emergency department, the patient was documented to have a temperature of 96 ?F. She was mildly tachycardic with a blood pressure of 191/145 mmHg. Initial laboratory evaluation revealed a hemoglobin of 21. Platelet count was decreased at 141,000. Chemistry profile was notable for a bicarbonate of 33. Troponin was negative. BNP was elevated at 491. Surface echocardiogram completed on June 04 demonstrated normal LV size and function with an ejection fraction of 65%. Right ventricular systolic pressure was unable to be estimated. CTA chest was completed on June 04 and demonstrated no evidence for pulmonary embolism. There was a pleural-based nodular density measuring 2.2 cm in the right lower lobe along with bilateral emphysematous changes and bibasilar infiltrates and a small right pleural effusion. [facility] Medical History COPD (chronic obstructive pulmonary disease) Home Medications naproxen sodium 220 mg capsule (Aleve) 440 mg PO DAILY PRN pain 06/03/23 [History Last Taken Unknown] Allergy/AdvReac Type Severity Reaction Status Date / Time No Known Allergies Allergy Verified 06/03/23 14:31 Surgical History History of right hip replacement Social History Smoking Status: Former smoker ROS ROS Narrative 10 systems were reviewed with pertinent positives as noted in the HPI above. Physical Exam Const alert and no apparent distress Constitutional Narrative: BiPAP currently in place. General Appearance: cooperative HEENT normocephalic and head/scalp atraumatic Eyes PERRL, EOMs intact bilaterally and conjunctivae normal Neck supple General: trachea midline Chest inspection of chest normal Resp normal respiratory effort Auscultation: diminished lung sounds; Negative for rales, rhonchi or wheezes Cardio regular rate and regular rhythm GI normal to inspection, nondistended, normoactive bowel sounds Extremity no clubbing, cyanosis or edema Skin no rashes or lesions noted Neuro oriented x3, CN's II-XII intact bilaterally and moves all extremities Psych cooperative and affect normal Lab / Micro Data 06/05/23 05:25 06/05/23 05:25 Labs: Laboratory Results - last 24 hr 06/03/23 14:31: Diff Path Review Reviewed 06/04/23 06:08: WBC 4.2 L, RBC 6.49 H, Hgb 20.0 H*, Hct 62.2 H, MCV 95.8, MCH 30.8, MCHC 32.2, RDW Std Deviation 52.9 H, RDW Coeff of Nick 16.1 H, Plt Count 161, MPV 9.6, Immature Gran % (Auto) 0.500, Neut % (Auto) 84.9 H, Lymph % (Auto) 9.3 L, Alexander % (Auto) 4.8, Eos % (Auto) 0.0, Baso % (Auto) 0.5, Absolute Neuts (auto) 3.6, Absolute Lymphs (auto) 0.39 L, Nucleated RBC % 0, Differential Comment SCANNED, Diff Path Review Reviewed, Sodium 139, Potassium 3.9, Chloride 97 L, Carbon Dioxide 36.0 H, Anion Gap 6, BUN 10, Creatinine 0.71, Estim Creat Clear Calc 74.94, Est GFR (MDRD) Af Amer 107, Est GFR (MDRD) Non-Af 88, BUN/Creatinine Ratio 14.1, Glucose 116 H, Calcium 9.0 Rhythm Strip Rhythm Strip: Sinus Rhythm Rate: 99 Ectopy: None Radiology Impression Echocardiogram 06/03/23 18:23 Interpretation Summary The estimated ejection fraction is 65 %. Ordering Physician: Harley Mcgee Referring Physician: NO PCP Performed By: Ran, Leigh Ann, RDCS, RVT Chest X-Ray 06/04/23 05:55 IMPRESSION: Bibasilar atelectasis versus infiltrates and small bilateral pleural effusions. Electronically Signed: Harinder Mcdaniels DO at 6:28 EDT , Chest CTA 06/04/23 11:53 IMPRESSION: Bibasilar infiltrates left greater than right with a small right pleural effusion. Irregular infiltrate in the anterior aspect of the right lower lobe as described. This abuts the right minor fissure. Radiographic follow-up is recommended. Electronically Signed: Joaquim Montenegro MD at 13:21 EDT , Charges/Coding Visit Charges Inpatient E&M: 47415 Init Hosp L3
[2023-06-05 06:19] LABS: Differential Indicated SCAN CRITERIA MET; Hematocrit 61.6 % (37-47)
[2023-06-05 06:39] LABS: Anion Gap 5 (5-15); BUN 15 mg/dL (7-18); BUN/Creat Ratio 20.5 RATIO (10-20); Calcium,Total 9.1 mg/dL (8.5-10.1); Chloride 94 mmol/L (98-107); Creatinine, Serum 0.73 mg/dL (0.55-1.02); EST Glomerular Filtration Rate 85 mL/min (>60); Est Glom Filt Rate - Afr Amer 103 mL/min (>60); Estimated Creatinine Clearance 72.88 ml/min; Glucose 124 mg/dL (74-106); Potassium 3.6 mmol/L (3.5-5.1); Sodium Level 136 mmol/L (136-145)
[2023-06-05 07:03] LABS: Anisocytosis 1+
[2023-06-05] MEDS: Budesonide Respules 0.5 MG/2 ML AMPUL.NEB. INHALATION ×2 (07:27→19:29)
[2023-06-05 08:43] LABS: Procalcitonin < 0.04 ng/mL (0.00-0.09)
[2023-06-05] MEDS: Heparin Injection (Vial) 5,000 UNIT/ML VIAL 5000 UNIT SC ×2 (09:20→21:43)
[2023-06-05] MEDS: Potassium Chloride Oral Tablet 20 MEQ PO ×2 (09:20→16:45)
[2023-06-05] MEDS: levoFLOXacin IV 750 MG/150 ML BAG 100 MG IV (09:20)
[2023-06-05] MEDS: 0.9% Saline Lock 10 ML Syringe IV (09:20)
[2023-06-05] MEDS: Menthol/Lanolin/Calamine/Znox 113 GM Tube 1 APPLIC TOPICAL ×2 (09:21→21:43)
--- NOTE | 2023-06-05 12:46 | PN_ITS ---
Subjective Subjective Patient seen and examined. She remains on BIPAP. She still feels short of breath. She still has an occasional cough, but denies any chest pain, palpitations, dizziness, nausea, vomiting or any other symptoms. Review of systems is otherwise negative. Objective Data Objective Data Vital Signs: Vital Signs Temp Pulse Resp BP Pulse Ox O2 Del Method O2 Flow Rate 98.1 F 88 17 121/67 H 93 Nasal Cannula 8 06/05/23 09:00 06/05/23 09:00 06/05/23 09:00 06/05/23 09:00 06/05/23 12:18 06/05/23 12:18 06/05/23 12:18 FiO2 60 06/05/23 08:35 Oxygen Flow Rate (L/min) 8 Oxygen Delivery Method Nasal Cannula Weight: 178 lb 5.663 oz Body Mass Index (BMI) 28.8 Intake & Output: Intake and Output for Last 24 Hours 06/03/23 06/04/23 06/05/23 23:59 23:59 23:59 Intake Total 100 / 100 370 / 470 610 / 610 Output Total 1600 / 1600 700 / 1900 2100 / 2100 Balance -1500 / -1500 -330 / -1430 -1490 / -1490 Lab / Micro Data 06/05/23 05:25 06/05/23 05:25 Labs: Laboratory Results - last 24 hr 06/03/23 14:31: Diff Path Review Reviewed 06/04/23 06:08: Diff Path Review Reviewed 06/05/23 05:25: WBC 5.8, RBC 6.45 H, Hgb 19.9 H*, Hct 61.6 H, MCV 95.5, MCH 30.9, MCHC 32.3, RDW Std Deviation 53.3 H, RDW Coeff of Nick 16.4 H, Plt Count 154, MPV 9.6, Immature Gran % (Auto) 0.700, Neut % (Auto) 90.8 H, Lymph % (Auto) 5.4 L, [place] % (Auto) 2.6, Eos % (Auto) 0.0, Baso % (Auto) 0.5, Absolute Neuts (auto) 5.3, Absolute Lymphs (auto) 0.31 L, Nucleated RBC % 0, Diff Path Review May foll, Anisocytosis 1+, Sodium 136, Potassium 3.6, Chloride 94 L, Carbon Dioxide 37.0 H, Anion Gap 5, BUN 15, Creatinine 0.73, Estim Creat Clear Calc 72.88, Est GFR (MDRD) Af Amer 103, Est GFR (MDRD) Non-Af 85, BUN/Creatinine Ratio 20.5 H, Glucose 124 H, Calcium 9.1 06/05/23 06:51: Procalcitonin < 0.04 Radiography Diagnostic Testing: Radiology Impression Chest CTA 06/04/23 11:53 IMPRESSION: Bibasilar infiltrates left greater than right with a small right pleural effusion. Irregular infiltrate in the anterior aspect of the right lower lobe as described. This abuts the right minor fissure. Radiographic follow-up is recommended. Electronically Signed: Joaquim Montenegro MD at 13:21 EDT , Rhythm Strip Rhythm Strip: Sinus Rhythm Rate: 99 Ectopy: None Physical Exam Const alert, oriented x3 and no apparent distress Constitutional Narrative: Patient appears older than her stated age General Appearance: cooperative and well developed Orientation / Consciousness: awake, oriented to person, oriented to place and oriented to time HEENT normocephalic, head/scalp atraumatic, hearing grossly normal bilaterally and moist oral mucous membranes Eyes PERRL, EOMs intact bilaterally and conjunctivae normal Neck no lymphadenopathy, supple, no JVD, thyroid normal and no carotid bruits General: trachea midline Lymph Lymphatic: no lymphadenopathy noted and no lymphedema noted Resp Resp Narrative: Moderately diminished breath sounds bibasally, no wheezes or crackles. On BIPAP; was weaned down to 8L of oxygen. Auscultation: rales bilateral lower; Negative for rhonchi or wheezes Cardio regular rate, regular rhythm, S1 normal heart sound, S2 normal heart sound, no murmurs, no rub and no gallops GI normal to inspection, nondistended, normoactive bowel sounds, soft to palpation, non-tender and non-distended Extremity normal capillary refill, no clubbing, cyanosis or edema and no calf tenderness Extremity Narrative: has cyanosis of fingers and lips General Extremity: clubbing, cyanosis and no tenderness to palpation of joints or extremities Skin no rashes or lesions noted General Skin Exam: no breakdown Neuro oriented x3, CN's II-XII intact bilaterally, moves all extremities, no focal motor deficits, no sensory deficits noted and deep tendon reflexes 2+ bilaterally Sensorium / Orientation: awake, alert, oriented to person, oriented to place and oriented to time Speech: speech normal Motor Exam: strength 5/5 throughout and general weakness Psych thought process normal, cooperative and affect normal Appearance: appropriate Assessment & Plan Assessment/Plan (1) Hypoxia: (2) Acute exacerbation of chronic obstructive pulmonary disease: (3) CHF (congestive heart failure): (4) Acute dyspnea: (5) Elevated hemoglobin: PLAN: Plan #Acute hypoxic respiratory failure due to COPD exacerbation and probable heart failure * patient hasnt seen a doctor in at least 5 years. * she says she cut down from smoking at least a pack daily to 1 cigarette daily 2 weeks ago. She has been smoking for at least 40 years * CXR showed evidence of pulmonary vascular congestion. * breathing treatment with bronchodilators * IV lasix * on iV solumedrol * titrate oxygen to maintain sats >90% * 2D echo showed EF of 65% with normal diastole for age and no regional wall motion abnormalities noted * CTA chest showed bibasilar infiltrates left greater than right with a small right pleural effusion,and irregular infiltrate in the anterior aspect of the right lower lobe as described, abutting the right fissure * started on empiric antimicrobials- IV levofloxacin * #Polycythemia * hemoglobin was elevated at 21 on admission; now down to 19. 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 This is supported by her elevated bicarb of 36, likely in response to chronically elevated CO2. * on admission, hematology was spoken to on the phone by admitting hospitalist; CML FISH ordered. * follow up with hematology on outpatient basis * #Nicotine dependence: counseled to quit. Has over a 40 pack year smoking history. Nicotine patch 21mg daily DVT prophylaxis: lovenox Charges/Coding Visit Charges Inpatient E&M: 68475 Subs Hosp L2
[2023-06-05 14:15] LABS: M R Staph aureus DNA By PCR Negative (Negative); Probe Check PASS; Specimen Processing Control PASS
[2023-06-05 14:22] LABS: Pathologist Review Reviewed
[2023-06-05] MEDS: Acetaminophen 325 MG Tablet 650 MG PO (14:56)
[2023-06-06] VITALS (17 sets, daily range): BP systolic 101–130; BP diastolic 66–85; PULSE 85–98; RESP 12–26; TEMP 36.2–36.6; O2SAT 88–99; BMI 28.3
--- NOTE | 2023-06-06 01:14 | CPS ---
RN had called and noticed Spo2 was low and tidal volume was low also. Settings increased to 14/10
[2023-06-06] MEDS: Furosemide 40 MG/4 ML Vial IV ×3 (06:37→22:11)
[2023-06-06] MEDS: Nystatin Powder 15gm Bottle 1 APPLIC TOPICAL ×3 (06:37→22:21)
[2023-06-06] MEDS: Ipratropium/Albuterol Sulfate 3 ML AMPUL.NEB INHALATION ×3 (07:17→19:17)
[2023-06-06] MEDS: Budesonide Respules 0.5 MG/2 ML AMPUL.NEB. INHALATION ×2 (07:17→19:17)
[2023-06-06 08:13] LABS: Absolute Lymphocyte Count 0.32 X10^3/uL (0.83-4.51); Absolute Neutrophil Count 7.8 X10^3/uL (2.0-7.7); Basophil# 0.05 X10^3/uL; Basophil% 0.6 % (0-1); Eosinophil# 0.01 X10^3/uL; Eosinophils% 0.1 % (0-5); Lymphocyte # 0.32 X10^3/ul (0.83-4.51); Lymphocyte % 3.7 % (19-41); Mean Corp Hgb Conc 31.9 g/dL (32-36); Mean Corpuscular Hgb 30.7 pg (27.0-32.0); Mean Corpuscular Volume 96.3 fL (81-99); Mean Platelet Vol. 9.9 fl (6.2-12.0); Monocyte# 0.43 X10^3/uL; NRBC Flagged by Analyzer 0 % (0-5); Neutrophil # 7.75 X10^3/uL (2.7-7.7); POSITIVE DIFFERENTIAL YES; Platelet Count 173 K/mm3 (150-450); RBC Distribution Width CV 16.8 % (11.6-14.6); RBC Distribution Width SD 53.3 fl (35.1-43.9); Red Blood Count 6.94 M/mm3 (4.2-5.4); White Blood Count 8.6 K/mm3 (4.4-11.0)
[2023-06-06 08:19] LABS: Hematocrit 66.8 % (37-47)
[2023-06-06 08:21] LABS: Hemoglobin 21.3 g/dL (12.0-15.0)
[2023-06-06 08:23] LABS: Differential Indicated SCAN CRITERIA MET
[2023-06-06 08:35] LABS: Anion Gap 8 (5-15); BUN 22 mg/dL (7-18); BUN/Creat Ratio 23.2 RATIO (10-20); Calcium,Total 9.5 mg/dL (8.5-10.1); Chloride 92 mmol/L (98-107); Creatinine, Serum 0.95 mg/dL (0.55-1.02); EST Glomerular Filtration Rate 63 mL/min (>60); Est Glom Filt Rate - Afr Amer 76 mL/min (>60); Estimated Creatinine Clearance 56.01 ml/min; Glucose 170 mg/dL (74-106); Potassium 3.3 mmol/L (3.5-5.1); Sodium Level 135 mmol/L (136-145)
[2023-06-06] MEDS: Potassium Chloride Oral Tablet 20 MEQ PO ×2 (09:24→16:41)
[2023-06-06] MEDS: levoFLOXacin IV 750 MG/150 ML BAG 100 MG IV (09:24)
[2023-06-06] MEDS: Menthol/Lanolin/Calamine/Znox 113 GM Tube 1 APPLIC TOPICAL ×2 (09:25→22:20)
[2023-06-06] MEDS: Heparin Injection (Vial) 5,000 UNIT/ML VIAL 5000 UNIT SC ×2 (09:25→22:01)
[2023-06-06] MEDS: 0.9% Saline Lock 10 ML Syringe IV ×2 (09:25→22:08)
[2023-06-06] MEDS: Potassium Chloride Oral Tablet 20 MEQ 40 MEQ PO (09:47)
--- NOTE | 2023-06-06 12:16 | PN_ITS ---
Subjective Subjective Patient seen and examined. She feels well and has no complaints. She says she feels much better. She is on 8 L of oxygen. She had an uneventful night and review of systems otherwise negative. She has remained hemodynamically stable. Objective Data Objective Data Vital Signs: Vital Signs Temp Pulse Resp BP Pulse Ox O2 Del Method O2 Flow Rate 97.3 F L 90 16 126/66 H 96 High Flow 8 06/06/23 07:54 06/06/23 07:54 06/06/23 07:54 06/06/23 07:54 06/06/23 10:07 06/06/23 08:46 06/06/23 10:07 FiO2 60 06/06/23 05:00 Oxygen Flow Rate (L/min) 8 Oxygen Delivery Method High Flow Weight: 175 lb 4.28 oz Body Mass Index (BMI) 28.3 Intake & Output: Intake and Output for Last 24 Hours 06/04/23 06/05/23 06/06/23 23:59 23:59 23:59 Intake Total 370 / 470 1090 / 1450 600 / 600 Output Total 700 / 1900 2600 / 3300 1300 / 1300 Balance -330 / -1430 -1510 / -1850 -700 / -700 Lab / Micro Data 06/06/23 06:56 06/06/23 06:56 Labs: Laboratory Results - last 24 hr 06/05/23 05:25: Diff Path Review Reviewed 06/05/23 09:30: MRSA (PCR) Negative 06/06/23 06:56: WBC 8.6, RBC 6.94 H, Hgb 21.3 H*, Hct 66.8 H, MCV 96.3, MCH 30.7, MCHC 31.9 L, RDW Std Deviation 53.3 H, RDW Coeff of Nick 16.8 H, Plt Count 173, MPV 9.9, Immature Gran % (Auto) 0.600, Neut % (Auto) 90.0 H, Lymph % (Auto) 3.7 L, [place] % (Auto) 5.0, Eos % (Auto) 0.1, Baso % (Auto) 0.6, Absolute Neuts (auto) 7.8 H, Absolute Lymphs (auto) 0.32 L, Nucleated RBC % 0, Differential Comment COMMENT, Diff Path Review February, Sodium 135 L, Potassium 3.3 L, Chloride 92 L, Carbon Dioxide 35.0 H, Anion Gap 8, BUN 22 H, Creatinine 0.95, Estim Creat Clear Calc 56.01, Est GFR (MDRD) Af Amer 76, Est GFR (MDRD) Non-Af 63, BUN/Creatinine Ratio 23.2 H, Glucose 170 H, Calcium 9.5 Micro: Microbiology 06/05/23 08:20 Urine, Clean Catch Legionella Antigen - Final 06/05/23 08:20 Urine, Clean Catch Streptococcus pneumoniae Antigen (M - Final 06/05/23 15:10 Nasal Secretion SARS-CoV-2 Antigen (Rapid) - Final Rhythm Strip Rhythm Strip: Sinus Rhythm Rate: 99 Ectopy: None Physical Exam Const alert, oriented x3 and no apparent distress General Appearance: cooperative and well developed Orientation / Consciousness: awake, oriented to person, oriented to place and oriented to time HEENT normocephalic, head/scalp atraumatic, hearing grossly normal bilaterally and moist oral mucous membranes Eyes PERRL, EOMs intact bilaterally and conjunctivae normal Neck no lymphadenopathy, supple, no JVD, thyroid normal and no carotid bruits General: trachea midline Lymph Lymphatic: no lymphadenopathy noted and no lymphedema noted Resp Resp Narrative: Moderately diminished breath sounds bibasally, no wheezes or crackles. On 8L of oxygen. Auscultation: Negative for rhonchi or wheezes Cardio regular rate, regular rhythm, S1 normal heart sound, S2 normal heart sound, no murmurs, no rub and no gallops GI normal to inspection, nondistended, normoactive bowel sounds, soft to palpation, non-tender and non-distended Extremity normal capillary refill, no clubbing, cyanosis or edema and no calf tenderness General Extremity: clubbing, cyanosis and no tenderness to palpation of joints or extremities Skin no rashes or lesions noted General Skin Exam: no breakdown Neuro oriented x3, CN's II-XII intact bilaterally, moves all extremities, no focal motor deficits, no sensory deficits noted and deep tendon reflexes 2+ bilaterally Sensorium / Orientation: awake, alert, oriented to person, oriented to place and oriented to time Speech: speech normal Motor Exam: strength 5/5 throughout and general weakness Psych thought process normal, cooperative and affect normal Appearance: appropriate Assessment & Plan Assessment/Plan (1) Hypoxia: (2) Acute exacerbation of chronic obstructive pulmonary disease: (3) CHF (congestive heart failure): (4) Acute dyspnea: (5) Elevated hemoglobin: PLAN: Plan #Acute hypoxic respiratory failure due to COPD exacerbation and probable heart failure * patient hasnt seen a doctor in at least 5 years. * she says she cut down from smoking at least a pack daily to 1 cigarette daily 2 weeks ago. She has been smoking for at least 40 years * CXR showed evidence of pulmonary vascular congestion. * breathing treatment with bronchodilators * IV lasix * on iV solumedrol * titrate oxygen to maintain sats >90% * 2D echo showed EF of 65% with normal diastole for age and no regional wall motion abnormalities noted * CTA chest showed bibasilar infiltrates left greater than right with a small right pleural effusion,and irregular infiltrate in the anterior aspect of the right lower lobe as described, abutting the right fissure * started on empiric antimicrobials- IV levofloxacin * now on 8L of oxygen. #Hypokalemia: potassium is 3.3. Will replace and trend. #Polycythemia * hb is 21 today. 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 This is supported by her elevated bicarb of 36, likely in response to chronically elevated CO2. * on admission, hematology was spoken to on the phone by admitting hospitalist; CML FISH ordered. * follow up with hematology on outpatient basis * #Nicotine dependence: counseled to quit. Has over a 40 pack year smoking history. Nicotine patch 21mg daily DVT prophylaxis: lovenox Charges/Coding Visit Charges Inpatient E&M: 41223 Subs Hosp L2
[2023-06-07] VITALS (12 sets, daily range): BP systolic 116–147; BP diastolic 76–93; PULSE 80–107; RESP 12–22; TEMP 35.9–36.8; O2SAT 90–96; BMI 28.2
[2023-06-07] MEDS: Ipratropium/Albuterol Sulfate 3 ML AMPUL.NEB INHALATION ×4 (01:08→19:03)
[2023-06-07] MEDS: Furosemide 40 MG/4 ML Vial IV ×3 (05:15→22:39)
[2023-06-07] MEDS: 0.9% Saline Lock 10 ML Syringe IV ×4 (05:15→22:39)
[2023-06-07] MEDS: Nystatin Powder 15gm Bottle 1 APPLIC TOPICAL ×3 (05:26→22:39)
--- NOTE | 2023-06-07 06:10 | PN.CC_ITS ---
Assessment & Plan Assessment/Plan (1) Acute hypoxemic respiratory failure: PLAN: Plan RECOMMENDATIONS: 1. Wean supplemental oxygen to maintain saturations at or above 90%. 2. Continue diuresis as tolerated by hemodynamics and renal function. 3. Continue empiric antimicrobials. Plan to complete 7 days of therapy. 4. Continue bronchodilators and steroids. 5. BiPAP therapy with naps and nightly. 6. Obtain follow-up CT scan in 6 weeks. 7. Outpatient pulmonary follow-up within 2 weeks of discharge is warranted. IMPRESSIONS: 1. Acute hypoxemic respiratory failure Clinical concern for undiagnosed obstructive lung disease and heart failure with preserved ejection fraction contributing to acute presentation. The patient has bilateral emphysematous changes on CT imaging of the chest along with a nodular density, which is pleural-based, in the right lower lobe. The patient also has bibasilar infiltrates and a right-sided pleural effusion. At this time, recommend initiation of antimicrobials, with goals to complete 7 days of therapy. Continue to wean supplemental oxygen as tolerated to maintain saturations at or above 90%. Recommend continuing BiPAP therapy, at a minimum, with naps and nightly. The nodular density noted on CT imaging will need further follow-up evaluation. I would recommend that a repeat CT scan be completed in 6 weeks. If this lesion persists, will need to consider percutaneous biopsy. Otherwise, continue supportive measures including scheduled bronchodilators and steroids. The patient will require close outpatient pulmonary follow-up so that baseline PFTs can be obtained. It is re asonable to continue gentle diuresis as tolerated by hemodynamics and renal function. 2. Polycythemia Most likely secondary to underlying lung disease leading to chronic hypoxemia. As noted above, the patient will require further outpatient pulmonary workup. I do anticipate a home-going supplemental oxygen requirement. The patient will ultimately follow-up with hematology after discharge as well. 3. History of tobacco dependency The patient reported that she quit smoking completely approximately 3 weeks ago. Ongoing tobacco cessation was strongly recommended. This note was generated with [employer] dictation software. It may contain incorrect words, spelling, and punctuation that were not noted in checking the note before signing. Subjective Subjective The patient was seen and examined at the bedside this morning. Events from the last 24 hours have been reviewed. The patient is currently afebrile, hemodynamically stable and maintaining appropriate oxygen saturations on 6 L/min via nasal cannula. The patient was once again tolerant of BiPAP overnight. Despite her oxygen requirement, the patient feels quite well. Objective Data Objective Data The patient's most recent lab work, culture data and imaging studies have all been personally reviewed. Infectious work-up has been unrevealing to date. Vital Signs: Vital Signs Temp Pulse Resp BP Pulse Ox O2 Del Method O2 Flow Rate 96.7 F L 80 14 125/76 H 96 Bi-pap 8 06/07/23 03:57 06/07/23 03:57 06/07/23 03:57 06/07/23 03:57 06/07/23 03:57 06/07/23 04:28 06/06/23 21:57 FiO2 60 06/07/23 04:28 Oxygen Flow Rate (L/min) 8 Oxygen Delivery Method Bi-pap Weight: 175 lb 0.752 oz Body Mass Index (BMI) 28.2 Intake & Output: Intake and Output for Last 24 Hours 06/05/23 06/06/23 06/07/23 23:59 23:59 23:59 Intake Total 1090 / 1450 1979 / 1979 Output Total 2600 / 3300 3060 / 3060 650 / 650 Balance -1510 / -1850 -1080 / -1080 -650 / -650 Lab / Micro Data Attestation: I reviewed the patient's lab results. 06/06/23 06:56 06/07/23 05:23 Labs: Laboratory Results - last 24 hr 06/06/23 06:56: WBC 8.6, RBC 6.94 H, Hgb 21.3 H*, Hct 66.8 H, MCV 96.3, MCH 30.7, MCHC 31.9 L, RDW Std Deviation 53.3 H, RDW Coeff of Nick 16.8 H, Plt Count 173, MPV 9.9, Immature Gran % (Auto) 0.600, Neut % (Auto) 90.0 H, Lymph % (Auto) 3.7 L, Saline % (Auto) 5.0, Eos % (Auto) 0.1, Baso % (Auto) 0.6, Absolute Neuts (auto) 7.8 H, Absolute Lymphs (auto) 0.32 L, Nucleated RBC % 0, Differential Comment COMMENT, Diff Path Review February, Sodium 135 L, Potassium 3.3 L, Chloride 92 L, Carbon Dioxide 35.0 H, Anion Gap 8, BUN 22 H, Creatinine 0.95, Estim Creat Clear Calc 56.01, Est GFR (MDRD) Af Amer 76, Est GFR (MDRD) Non-Af 63, BUN/Creatinine Ratio 23.2 H, Glucose 170 H, Calcium 9.5 Micro: Microbiology 06/05/23 08:20 Urine, Clean Catch Legionella Antigen - Final 06/05/23 08:20 Urine, Clean Catch Streptococcus pneumoniae Antigen (M - Final 06/05/23 15:10 Nasal Secretion SARS-CoV-2 Antigen (Rapid) - Final Rhythm Strip Rhythm Strip: Sinus Rhythm Rate: 99 Ectopy: None Physical Exam Const alert and no apparent distress General Appearance: cooperative HEENT normocephalic and head/scalp atraumatic Eyes PERRL, EOMs intact bilaterally and conjunctivae normal Neck supple General: trachea midline Chest inspection of chest normal Resp normal respiratory effort Auscultation: diminished lung sounds; Negative for rales, rhonchi or wheezes Cardio regular rate and regular rhythm GI normal to inspection, nondistended, normoactive bowel sounds Extremity no clubbing, cyanosis or edema Skin no rashes or lesions noted Neuro oriented x3, CN's II-XII intact bilaterally and moves all extremities Psych cooperative and affect normal Charges/Coding Visit Charges Inpatient E&M: 19863 Subs Hosp L2
[2023-06-07 06:13] LABS: Absolute Lymphocyte Count 0.22 X10^3/uL (0.83-4.51); Absolute Neutrophil Count 7.2 X10^3/uL (2.0-7.7); Basophil# 0.04 X10^3/uL; Basophil% 0.5 % (0-1); Hemoglobin 21.2 g/dL (12.0-15.0); Lymphocyte # 0.22 X10^3/ul (0.83-4.51); Lymphocyte % 2.8 % (19-41); Mean Corpuscular Hgb 30.8 pg (27.0-32.0); Mean Corpuscular Volume 96.4 fL (81-99); Mean Platelet Vol. 9.7 fl (6.2-12.0); Monocyte# 0.32 X10^3/uL; Monocyte% 4.1 % (0-10); NRBC Flagged by Analyzer 0 % (0-5); Neutrophil # 7.19 X10^3/uL (2.7-7.7); Neutrophil % 91.8 % (47-70); POSITIVE DIFFERENTIAL YES; Platelet Count 164 K/mm3 (150-450); RBC Distribution Width CV 16.7 % (11.6-14.6); Red Blood Count 6.88 M/mm3 (4.2-5.4); White Blood Count 7.8 K/mm3 (4.4-11.0)
[2023-06-07 06:45] LABS: Hematocrit 66.3 % (37-47)
[2023-06-07 06:46] LABS: Anion Gap 5 (5-15); BUN 25 mg/dL (7-18); BUN/Creat Ratio 29.2 RATIO (10-20); Calcium,Total 9.3 mg/dL (8.5-10.1); Chloride 94 mmol/L (98-107); Creatinine, Serum 0.86 mg/dL (0.55-1.02); Differential Indicated SCAN CRITERIA MET; EST Glomerular Filtration Rate 71 mL/min (>60); Est Glom Filt Rate - Afr Amer 86 mL/min (>60); Estimated Creatinine Clearance 61.87 ml/min; Glucose 139 mg/dL (74-106); Potassium 4.4 mmol/L (3.5-5.1); Sodium Level 132 mmol/L (136-145)
[2023-06-07 06:51] LABS: Anisocytosis 1+
[2023-06-07] MEDS: Budesonide Respules 0.5 MG/2 ML AMPUL.NEB. INHALATION ×2 (07:24→19:03)
[2023-06-07] MEDS: Menthol/Lanolin/Calamine/Znox 113 GM Tube 1 APPLIC TOPICAL ×2 (10:08→22:39)
[2023-06-07] MEDS: Potassium Chloride Oral Tablet 20 MEQ PO ×2 (10:08→18:22)
[2023-06-07] MEDS: Heparin Injection (Vial) 5,000 UNIT/ML VIAL 5000 UNIT SC ×2 (10:09→22:38)
[2023-06-07] MEDS: levoFLOXacin IV 750 MG/150 ML BAG 100 MG IV (10:25)
--- NOTE | 2023-06-07 12:32 | PN_ITS ---
Subjective Subjective Patient seen and examined. She had no active complaints. Her breathing is improving. Review of systems is otherwise negative. She is now down to 6L of oxygen. Objective Data Objective Data Vital Signs: Vital Signs Temp Pulse Resp BP Pulse Ox O2 Del Method O2 Flow Rate 97.8 F 101 H 19 H 147/83 H 93 Nasal Cannula 6 06/07/23 10:11 06/07/23 10:11 06/07/23 10:11 06/07/23 10:11 06/07/23 10:53 06/07/23 10:11 06/07/23 10:53 FiO2 60 06/07/23 04:28 Oxygen Flow Rate (L/min) 6 Oxygen Delivery Method Nasal Cannula Weight: 175 lb 0.752 oz Body Mass Index (BMI) 28.2 Intake & Output: Intake and Output for Last 24 Hours 06/05/23 06/06/23 06/07/23 23:59 23:59 23:59 Intake Total 1090 / 1450 1979 / 1979 Output Total 2600 / 3300 3060 / 3060 650 / 650 Balance -1510 / -1850 -1080 / -1080 -650 / -650 Lab / Micro Data 06/07/23 05:23 06/07/23 05:23 Labs: Laboratory Results - last 24 hr 06/07/23 05:23: WBC 7.8, RBC 6.88 H, Hgb 21.2 H*, Hct 66.3 H, MCV 96.4, MCH 30.8, MCHC 32.0, RDW Std Deviation 54.0 H, RDW Coeff of Nick 16.7 H, Plt Count 164, MPV 9.7, Immature Gran % (Auto) 0.800, Neut % (Auto) 91.8 H, Lymph % (Auto) 2.8 L, [place] % (Auto) 4.1, Eos % (Auto) 0.0, Baso % (Auto) 0.5, Absolute Neuts (auto) 7.2, Absolute Lymphs (auto) 0.22 L, Nucleated RBC % 0, Diff Path Review May foll, Anisocytosis 1+, Sodium 132 L, Potassium 4.4, Chloride 94 L, Carbon Dioxide 33.0 H, Anion Gap 5, BUN 25 H, Creatinine 0.86, Estim Creat Clear Calc 61.87, Est GFR (MDRD) Af Amer 86, Est GFR (MDRD) Non-Af 71, BUN/Creatinine Ratio 29.2 H, Glucose 139 H, Calcium 9.3 Micro: Microbiology 06/05/23 08:20 Urine, Clean Catch Legionella Antigen - Final 06/05/23 08:20 Urine, Clean Catch Streptococcus pneumoniae Antigen (M - Final 06/05/23 15:10 Nasal Secretion SARS-CoV-2 Antigen (Rapid) - Final Rhythm Strip Rhythm Strip: Sinus Rhythm Rate: 99 Ectopy: None Physical Exam Const alert, oriented x3 and no apparent distress General Appearance: cooperative and well developed Orientation / Consciousness: awake, oriented to person, oriented to place and oriented to time HEENT normocephalic, head/scalp atraumatic, hearing grossly normal bilaterally and moist oral mucous membranes Eyes PERRL, EOMs intact bilaterally and conjunctivae normal Neck no lymphadenopathy, supple, no JVD, thyroid normal and no carotid bruits General: trachea midline Lymph Lymphatic: no lymphadenopathy noted and no lymphedema noted Resp Resp Narrative: Moderately diminished breath sounds bibasally, no wheezes or crackles. now on 6L of oxygen. Auscultation: Negative for rhonchi or wheezes Cardio regular rate, regular rhythm, S1 normal heart sound, S2 normal heart sound, no murmurs, no rub and no gallops GI normal to inspection, nondistended, normoactive bowel sounds, soft to palpation, non-tender and non-distended Extremity normal capillary refill, no clubbing, cyanosis or edema and no calf tenderness Extremity Narrative: cyanosis of fingers and lips has improved slightly. General Extremity: clubbing, cyanosis and no tenderness to palpation of joints or extremities Skin no rashes or lesions noted General Skin Exam: no breakdown Neuro oriented x3, CN's II-XII intact bilaterally, moves all extremities, no focal motor deficits, no sensory deficits noted and deep tendon reflexes 2+ bilaterally Sensorium / Orientation: awake, alert, oriented to person, oriented to place and oriented to time Speech: speech normal Motor Exam: strength 5/5 throughout and general weakness Psych thought process normal, cooperative and affect normal Appearance: appropriate Assessment & Plan Assessment/Plan (1) Hypoxia: (2) Acute exacerbation of chronic obstructive pulmonary disease: (3) CHF (congestive heart failure): (4) Acute dyspnea: (5) Elevated hemoglobin: PLAN: Plan #Acute hypoxic respiratory failure due to COPD exacerbation and probable heart failure * she says she cut down from smoking at least a pack daily to 1 cigarette daily 2 weeks ago. She has been smoking for at least 40 years * CXR showed evidence of pulmonary vascular congestion. * breathing treatment with bronchodilators * IV lasix * on iV solumedrol * titrate oxygen to maintain sats >90% * 2D echo showed EF of 65% with normal diastole for age and no regional wall motion abnormalities noted * CTA chest showed bibasilar infiltrates left greater than right with a small right pleural effusion,and irregular infiltrate in the anterior aspect of the right lower lobe as described, abutting the right fissure * on empiric antimicrobials- IV levofloxacin * now on 6L of oxygen. #Hypokalemia: potassium is 4.4. Will replace and trend. #Polycythemia * hb is 2.2 today. 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 This is supported by her elevated bicarb, likely in response to chronically elevated CO2. * on admission, hematology was spoken to on the phone by admitting hospitalist; CML FISH ordered. * follow up with hematology on outpatient basis * #Nicotine dependence: counseled to quit. Has over a 40 pack year smoking history. Nicotine patch 21mg daily DVT prophylaxis: lovenox Charges/Coding Visit Charges Inpatient E&M: 58323 Subs Hosp L2
--- NOTE | 2023-06-07 15:22 | NURSING ---
Pt walked in the waterman with this RN's assistance. Sammie was able to walk the entire length of the unit twice with portable oxygen and her walker.
[2023-06-08] VITALS (14 sets, daily range): BP systolic 127–155; BP diastolic 79–96; PULSE 84–102; RESP 15–20; TEMP 35.9–36.9; O2SAT 87–97; BMI 28.3
[2023-06-08] MEDS: Ipratropium/Albuterol Sulfate 3 ML AMPUL.NEB INHALATION ×4 (01:38→19:30)
--- NOTE | 2023-06-08 02:01 | CPS ---
Patient not on Bipap at this time as she wishes to see how she is able to sleep and get through the night without it. She also is complaining about her sinuses bothering her and thinks the mask will further cause her discomfort at this time. Patient does not wear a Bipap at home. She remains on 6L HFNC satting 96% at this time.
[2023-06-08] MEDS: Nystatin Powder 15gm Bottle 1 APPLIC TOPICAL ×3 (05:13→22:20)
[2023-06-08] MEDS: Furosemide 40 MG/4 ML Vial IV (05:13)
[2023-06-08] MEDS: 0.9% Saline Lock 10 ML Syringe IV ×2 (05:13→11:45)
[2023-06-08 06:24] LABS: Absolute Neutrophil Count 6.4 X10^3/uL (2.0-7.7); Basophil# 0.07 X10^3/uL; Lymphocyte % 4.3 % (19-41); Mean Corpuscular Hgb 30.8 pg (27.0-32.0); Mean Corpuscular Volume 96.2 fL (81-99); Monocyte# 0.25 X10^3/uL; Monocyte% 3.6 % (0-10); NRBC Flagged by Analyzer 0 % (0-5); Neutrophil # 6.39 X10^3/uL (2.7-7.7); Neutrophil % 90.7 % (47-70); POSITIVE DIFFERENTIAL YES; Platelet Count 135 K/mm3 (150-450); RBC Distribution Width CV 16.2 % (11.6-14.6); Red Blood Count 7.11 M/mm3 (4.2-5.4)
[2023-06-08 06:26] LABS: Hematocrit 68.4 % (37-47)
[2023-06-08 06:28] LABS: Differential Indicated SCAN CRITERIA MET; Hemoglobin 21.9 g/dL (12.0-15.0)
[2023-06-08 06:54] LABS: Anion Gap 6 (5-15); BUN 31 mg/dL (7-18); BUN/Creat Ratio 30.1 RATIO (10-20); Calcium,Total 9.5 mg/dL (8.5-10.1); Chloride 92 mmol/L (98-107); Creatinine, Serum 1.03 mg/dL (0.55-1.02); EST Glomerular Filtration Rate 57 mL/min (>60); Est Glom Filt Rate - Afr Amer 69 mL/min (>60); Estimated Creatinine Clearance 51.66 ml/min; Glucose 136 mg/dL (74-106); Potassium 4.8 mmol/L (3.5-5.1); Sodium Level 132 mmol/L (136-145)
[2023-06-08 07:05] LABS: Differential Comment SCANNED
[2023-06-08] MEDS: Budesonide Respules 0.5 MG/2 ML AMPUL.NEB. INHALATION (07:59)
--- NOTE | 2023-06-08 10:21 | PN.CC_ITS ---
Assessment & Plan Assessment/Plan (1) Acute hypoxemic respiratory failure: PLAN: Plan RECOMMENDATIONS: 1. Wean supplemental oxygen to maintain saturations at or above 90%. 2. Stop diuretics given interval increase in creatinine. 3. Continue empiric antimicrobials. Plan to complete 7 days of therapy. 4. Continue bronchodilators and steroids. 5. BiPAP therapy with naps and nightly. 6. Obtain follow-up CT scan in 6 weeks. 7. Outpatient pulmonary follow-up within 2 weeks of discharge is warranted. 8. Once the patient is able to ambulate on 6 L/min or less of supplemental ox ygen, she can be discharged home with outpatient pulmonary follow-up. IMPRESSIONS: 1. Acute hypoxemic respiratory failure Clinical concern for undiagnosed obstructive lung disease and heart failure with preserved ejection fraction contributing to acute presentation. The patient has bilateral emphysematous changes on CT imaging of the chest along with a nodular density, which is pleural-based, in the right lower lobe. The patient also has bibasilar infiltrates and a right-sided pleural effusion. At this time, recommend initiation of antimicrobials, with goals to complete 7 days of therapy. Continue to wean supplemental oxygen as tolerated to maintain saturations at or above 90%. Recommend continuing BiPAP therapy, at a minimum, with naps and nightly. The nodular density noted on CT imaging will need further follow-up evaluation. I would recommend that a repeat CT scan be completed in 6 weeks. If this lesion persists, will need to consider percutaneous biopsy. Otherwise, continue supportive measures including scheduled bronchodilators and steroids. The patient will require close outpatient pulmonary follow-up so that baseline PFTs can be obtained. 2. Polycythemia Most likely secondary to underlying lung disease leading to chronic hypoxemia. As noted above, the patient will require further outpatient pulmonary workup. I do anticipate a home-going supplemental oxygen requirement. The patient will ultimately follow-up with hematology after discharge as well. 3. History of tobacco dependency The patient reported that she quit smoking completely approximately 3 weeks ago. Ongoing tobacco cessation was strongly recommended. This note was generated with [employer] dictation software. It may contain incorrect words, spelling, and punctuation that were not noted in checking the note before signing. Subjective Subjective The patient was seen and examined at the bedside this morning. Events from the last 24 hours have been reviewed. The patient is currently afebrile, hemodynamically stable and maintaining appropriate oxygen saturations on 6 L/min via nasal cannula. The patient is sitting in her bedside recliner and reported that she was able to ambulate a short distance yesterday in the hallway. She feels as if her breathing quality is slowly improving. Objective Data Objective Data The patient's most recent lab work, culture data and imaging studies have all been personally reviewed. Infectious work-up has been unrevealing to date. Vital Signs: Vital Signs Temp Pulse Resp BP Pulse Ox O2 Del Method O2 Flow Rate 97.6 F L 90 18 127/86 H 93 Nasal Cannula 6 06/08/23 05:21 06/08/23 08:00 06/08/23 08:00 06/08/23 05:21 06/08/23 08:00 06/08/23 08:00 06/08/23 08:00 FiO2 60 06/07/23 04:28 Oxygen Flow Rate (L/min) 6 Oxygen Delivery Method Nasal Cannula Weight: 175 lb 4.28 oz Body Mass Index (BMI) 28.3 Intake & Output: Intake and Output for Last 24 Hours 06/06/23 06/07/23 06/08/23 23:59 23:59 23:59 Intake Total 1979 / 1979 990 / 1220 270 / 270 Output Total 3060 / 3060 1250 / 1325 775 / 775 Balance -1080 / -1080 -260 / -105 -505 / -505 Lab / Micro Data Attestation: I reviewed the patient's lab results. 06/08/23 05:37 06/08/23 05:37 Labs: Laboratory Results - last 24 hr 06/08/23 05:37: WBC 7.0, RBC 7.11 H, Hgb 21.9 H*, Hct 68.4 H, MCV 96.2, MCH 30.8, MCHC 32.0, RDW Std Deviation 53.0 H, RDW Coeff of Nick 16.2 H, Plt Count 135 L, MPV 10.0, Immature Gran % (Auto) 0.400, Neut % (Auto) 90.7 H, Lymph % (Auto) 4.3 L, [place] % (Auto) 3.6, Eos % (Auto) 0.0, Baso % (Auto) 1.0, Absolute Neuts (auto) 6.4, Absolute Lymphs (auto) 0.30 L, Nucleated RBC % 0, Differential Comment SCANNED, Diff Path Review May foll, Sodium 132 L, Potassium 4.8, Chloride 92 L, Carbon Dioxide 34.0 H, Anion Gap 6, BUN 31 H, Creatinine 1.03 H, Estim Creat Clear Calc 51.66, Est GFR (MDRD) Af Amer 69, Est GFR (MDRD) Non-Af 57 L, BUN/Creatinine Ratio 30.1 H, Glucose 136 H, Calcium 9.5 Micro: Microbiology 06/07/23 18:50 Sputum, Expectorated/Coughed Gram Stain - Preliminary 06/05/23 08:20 Urine, Clean Catch Legionella Antigen - Final 06/05/23 08:20 Urine, Clean Catch Streptococcus pneumoniae Antigen (M - Final 06/05/23 15:10 Nasal Secretion SARS-CoV-2 Antigen (Rapid) - Final Rhythm Strip Rhythm Strip: Sinus Rhythm Rate: 99 Ectopy: None Physical Exam Const alert and no apparent distress Constitutional Narrative: Sitting in bedside recliner. General Appearance: cooperative HEENT normocephalic and head/scalp atraumatic Eyes PERRL, EOMs intact bilaterally and conjunctivae normal Neck supple General: trachea midline Chest inspection of chest normal Resp normal respiratory effort Auscultation: diminished lung sounds; Negative for rales, rhonchi or wheezes Cardio regular rate and regular rhythm GI normal to inspection, nondistended, normoactive bowel sounds Extremity no clubbing, cyanosis or edema Skin no rashes or lesions noted Neuro oriented x3, CN's II-XII intact bilaterally and moves all extremities Psych cooperative and affect normal Charges/Coding Visit Charges Inpatient E&M: 19546 Subs Hosp L2
[2023-06-08] MEDS: predniSONE 20 MG Tablet 40 MG PO (11:43)
[2023-06-08] MEDS: Potassium Chloride Oral Tablet 20 MEQ PO ×2 (11:43→16:34)
[2023-06-08] MEDS: Heparin Injection (Vial) 5,000 UNIT/ML VIAL 5000 UNIT SC ×2 (11:44→22:20)
[2023-06-08] MEDS: levoFLOXacin IV 750 MG/150 ML BAG 100 MG IV (11:45)
[2023-06-08] MEDS: Menthol/Lanolin/Calamine/Znox 113 GM Tube 1 APPLIC TOPICAL ×2 (11:46→22:20)
[2023-06-08 12:27] LABS: Pathologist Review Reviewed
[2023-06-08 12:41] LABS: Pathologist Review Reviewed
[2023-06-08 12:43] LABS: Pathologist Review Reviewed
--- NOTE | 2023-06-08 15:26 | CHAPLAIN ---
Type of Pastoral Visit _x__ Initial Visit ___ Follow-up Visit ___ On-call Visit ___ General Patient Visit ___ Spiritual Assessment ___ Family Conference ___ Bereavement ___ Rapid Response ___ Code Blue ___ Other (describe below) Pastoral Care Referral From _x__ Patient ___ Family ___ Nurse ___ Physician ___ Spudder ___ Home Inspector ___ Other (describe below) Sacrament/Intervention _x__ Active listening ___ Anointing ___ Shinto ___ Bereavement ___ Communion ___ Carissa exploration ___ ___ Life review ___ Prayer ___ Reconciliation ___ Sacrament of Sick _x__ Supportive presence ___ Wedding ___ Other (describe below) Pastoral Comments this was a brief encounter as the IV pump was beeping and the patient had used call button to ask for assistance to the bathroom; pt acknowledges some improvement in her health over the admission time; offer of support and presence given
--- NOTE | 2023-06-08 18:24 | PN.HOSP_ITS ---
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 Patient's diuretics were stopped due to her increased creatinine. Objective Data Objective Data Vital Signs: Vital Signs Temp Pulse Resp BP Pulse Ox O2 Del Method O2 Flow Rate 97.1 F L 98 16 146/88 H 94 High Flow 6 06/08/23 16:25 06/08/23 16:25 06/08/23 16:25 06/08/23 16:25 06/08/23 16:25 06/08/23 16:29 06/08/23 16:29 FiO2 60 06/07/23 04:28 Oxygen Flow Rate (L/min) [At 6 REST with Oxygen] Oxygen Flow Rate (L/min) [ 8 AMBULATING with Oxygen #2] Oxygen Flow Rate (L/min) [ 6 AMBULATING with Oxygen #1] Oxygen Flow Rate (L/min) 6 Oxygen Delivery Method High Flow Weight: 79.5 kg Body Mass Index (BMI) 28.3 Intake & Output: Intake and Output for Last 24 Hours 06/06/23 06/07/23 06/08/23 23:59 23:59 23:59 Intake Total 1979 / 1979 990 / 1220 860 / 860 Output Total 3060 / 3060 1250 / 1325 1275 / 1275 Balance -1080 / -1080 -260 / -105 -415 / -415 Lab / Micro Data 06/08/23 05:37 06/08/23 05:37 Labs: Laboratory Results - last 24 hr 06/06/23 06:56: Diff Path Review Reviewed 06/07/23 05:23: Diff Path Review Reviewed 06/08/23 05:37: WBC 7.0, RBC 7.11 H, Hgb 21.9 H*, Hct 68.4 H, MCV 96.2, MCH 30.8, MCHC 32.0, RDW Std Deviation 53.0 H, RDW Coeff of Nick 16.2 H, Plt Count 135 L, MPV 10.0, Immature Gran % (Auto) 0.400, Neut % (Auto) 90.7 H, Lymph % (Auto) 4.3 L, [place] % (Auto) 3.6, Eos % (Auto) 0.0, Baso % (Auto) 1.0, Absolute Neuts (auto) 6.4, Absolute Lymphs (auto) 0.30 L, Nucleated RBC % 0, Differential Comment SCANNED, Diff Path Review Reviewed, Sodium 132 L, Potassium 4.8, Chloride 92 L, Carbon Dioxide 34.0 H, Anion Gap 6, BUN 31 H, Creatinine 1.03 H, Estim Creat Clear Calc 51.66, Est GFR (MDRD) Af Amer 69, Est GFR (MDRD) Non-Af 57 L, BUN/Creatinine Ratio 30.1 H, Glucose 136 H, Calcium 9.5 Micro: Microbiology 06/07/23 18:50 Sputum, Expectorated/Coughed Gram Stain - Final 06/05/23 08:20 Urine, Clean Catch Legionella Antigen - Final 06/05/23 08:20 Urine, Clean Catch Streptococcus pneumoniae Antigen (M - Final 06/05/23 15:10 Nasal Secretion SARS-CoV-2 Antigen (Rapid) - Final Rhythm Strip Rhythm Strip: Sinus Rhythm Rate: 99 Ectopy: None Physical Exam Const alert, oriented x3 and no apparent distress Constitutional Narrative: Patient appears older than her stated age General Appearance: cooperative, well kempt and well developed Orientation / Consciousness: awake, oriented to person, oriented to place and oriented to time HEENT normocephalic, head/scalp atraumatic and moist oral mucous membranes Eyes PERRL, EOMs intact bilaterally and conjunctivae normal Neck supple, no JVD, thyroid normal and no carotid bruits General: trachea midline Resp normal respiratory effort, no retractions and no use of accessory muscles Resp Narrative: Breath sounds are diminished bilaterally Auscultation: Negative for rales, rhonchi or wheezes Cardio regular rate, regular rhythm, S1 normal heart sound, S2 normal heart sound, no murmurs, no rub and no gallops GI normal to inspection, nondistended, normoactive bowel sounds, soft to palpation, non-tender and non-distended Extremity no clubbing, cyanosis or edema Extremity Narrative: Patient has stasis dermatitis changes over both lower extremities Neuro oriented x3, CN's II-XII intact bilaterally, moves all extremities, no focal motor deficits and no sensory deficits noted Sensorium / Orientation: awake, alert, oriented to person, oriented to place and oriented to time Speech: speech normal Psych affect normal Assessment & Plan Assessment/Plan (1) Acute hypoxemic respiratory failure: PLAN: Plan 1. Acute hypoxic respiratory failure secondary to congestive heart failure with preserved ejection fraction and chronic obstructive pulmonary disease-we will continue to wean oxygen if possible, patient will need home O2 at the time of discharge #2 acute congestive heart failure with preserved ejection fraction-patient's Lasix was stopped due to increased creatinine, patient will be monitored #3 chronic obstructive pulmonary disease-patient is on prednisone at this time and aerosol treatments, pulmonary medicine as recommended 7 days of empiric antibiotics, patient is currently on Levaquin, I will change her to oral Levaquin and discontinue IV Levaquin. #4 polycythemia-etiology unclear at this point, patient will need follow-up with hematology as an outpatient Total clinical time spent by myself addressing the patient's medical issues, reviewing all of her data, and collaborating with patient's care team: 35 minutes Charges/Coding Visit Charges Inpatient E&M: 26860 Subs Hosp L2
[2023-06-09] VITALS (13 sets, daily range): BP systolic 137–151; BP diastolic 74–95; PULSE 88–106; RESP 16–20; TEMP 35.8–37.2; O2SAT 88–97; BMI 28.6
[2023-06-09] MEDS: Nystatin Powder 15gm Bottle 1 APPLIC TOPICAL ×3 (05:14→21:45)
[2023-06-09] MEDS: levoFLOXacin 750 MG Tablet PO (05:15)
--- NOTE | 2023-06-09 05:55 | RAD_ITS ---
STUDY: X-RAY CHEST REASON FOR EXAM: Female, 63 years old. Follow-up for pneumonia. TECHNIQUE: PA and lateral views of the chest. COMPARISON: Comparison is made with prior study dated June 04, 2023. FINDINGS: EKG electrodes are seen. Residual patchy bibasilar infiltrates slightly worse on the left side. There has been improvement as compared to prior study. Persistent blunting of both costophrenic angles worse on the left side. Persistent 2.3 cm x 0.9 cm nodular density in the right lower lobe. Further follow-up recommended. Normal size heart. Normal mediastinum and mary. Normal visualized pulmonary arteries. There is atherosclerotic calcification of the aortic arch with tortuosity. There is demineralization of the osseous structures. Normal visualized ribs, clavicles, and shoulders. There is no demonstrated abnormality of the visualized soft tissue structures of the upper abdomen. RAD/Chest PA and Lateral IMPRESSION: Improved aeration of both lung bases with residual patchy bibasilar infiltrates worse on the left side. Persistent 2.2 cm x 0.9 David nodule in the right lung base. Further follow-up recommended. Electronically Signed: Joaquim Montenegro MD at 8:46 EDT ,
[2023-06-09] MEDS: Ipratropium/Albuterol Sulfate 3 ML AMPUL.NEB INHALATION ×3 (06:45→19:19)
[2023-06-09 07:19] LABS: Anion Gap 8 (5-15); BUN 32 mg/dL (7-18); BUN/Creat Ratio 31.4 RATIO (10-20); Calcium,Total 9.4 mg/dL (8.5-10.1); Chloride 93 mmol/L (98-107); Creatinine, Serum 1.02 mg/dL (0.55-1.02); EST Glomerular Filtration Rate 58 mL/min (>60); Est Glom Filt Rate - Afr Amer 70 mL/min (>60); Estimated Creatinine Clearance 52.16 ml/min; Glucose 156 mg/dL (74-106); Potassium 4.5 mmol/L (3.5-5.1); Sodium Level 131 mmol/L (136-145)
[2023-06-09] MEDS: predniSONE 20 MG Tablet 40 MG PO (09:18)
[2023-06-09] MEDS: Heparin Injection (Vial) 5,000 UNIT/ML VIAL 5000 UNIT SC ×2 (09:18→21:46)
[2023-06-09] MEDS: Menthol/Lanolin/Calamine/Znox 113 GM Tube 1 APPLIC TOPICAL ×2 (09:19→21:45)
[2023-06-09] MEDS: 0.9% Saline Lock 10 ML Syringe IV (09:26)
--- NOTE | 2023-06-09 12:46 | CHAPLAIN ---
Type of Pastoral Visit ___ Initial Visit _x__ Follow-up Visit ___ On-call Visit ___ General Patient Visit ___ Spiritual Assessment ___ Family Conference ___ Bereavement ___ Rapid Response ___ Code Blue ___ Other (describe below) Pastoral Care Referral From _x__ Patient ___ Family ___ Nurse ___ Physician ___ Tree Expert ___ Lacquer Mixer ___ Other (describe below) Sacrament/Intervention _x__ Active listening ___ Anointing ___ Yarsani ___ Bereavement ___ Communion _x__ Carissa exploration ___ _x__ Life review _x__ Prayer ___ Reconciliation ___ Sacrament of Sick ___ Supportive presence ___ Wedding ___ Other (describe below) Pastoral Comments first visit was short yesterday so this was a follow up visit; pt identifies self as bull headed and that will help me get better; pt reports seeing improvements and hope for better days; pt acknowledges that she should have known this would happen to me because of my smoking; pt willing to address her illness now and do better; pt has concern for a son but there are some signs of improvement with him too; pt willing to talk but declined prayer or spiritual care support
--- NOTE | 2023-06-09 17:06 | PN.HOSP_ITS ---
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 I talked briefly with pulmonary medicine about her care today. We will attempt to ambulate her tomorrow to see if she will qualify for an attainable oxygen setting at home, she will need an oxygen concentrator set up. Objective Data Objective Data Vital Signs: Vital Signs Temp Pulse Resp BP Pulse Ox O2 Del Method O2 Flow Rate 97.9 F 106 H 18 144/74 H 88 Nasal Cannula 4 06/09/23 14:22 06/09/23 14:22 06/09/23 14:22 06/09/23 14:22 06/09/23 14:24 06/09/23 14:26 06/09/23 14:24 FiO2 60 06/07/23 04:28 Oxygen Flow Rate (L/min) [At 6 REST with Oxygen] Oxygen Flow Rate (L/min) [ 5 AMBULATING with Oxygen #2] Oxygen Flow Rate (L/min) [ 4 AMBULATING with Oxygen #1] Oxygen Flow Rate (L/min) 5 Oxygen Delivery Method Nasal Cannula Weight: 80.5 kg Body Mass Index (BMI) 28.6 Intake & Output: Intake and Output for Last 24 Hours 06/07/23 06/08/23 06/09/23 23:59 23:59 23:59 Intake Total 990 / 1220 860 / 1180 570 / 570 Output Total 1250 / 1325 1275 / 1275 Balance -260 / -105 -415 / -95 570 / 570 Lab / Micro Data 06/08/23 05:37 06/09/23 05:55 Labs: Laboratory Results - last 24 hr 06/09/23 05:55: Sodium 131 L, Potassium 4.5, Chloride 93 L, Carbon Dioxide 30.0, Anion Gap 8, BUN 32 H, Creatinine 1.02, Estim Creat Clear Calc 52.16, Est GFR (MDRD) Af Amer 70, Est GFR (MDRD) Non-Af 58 L, BUN/Creatinine Ratio 31.4 H, Glucose 156 H, Calcium 9.4 Micro: Microbiology 06/07/23 18:50 Sputum, Expectorated/Coughed Gram Stain - Final 06/07/23 18:50 Sputum, Expectorated/Coughed Respiratory Culture - Final Presumptive C albicans 06/05/23 08:20 Urine, Clean Catch Legionella Antigen - Final 06/05/23 08:20 Urine, Clean Catch Streptococcus pneumoniae Antigen (M - Final 06/05/23 15:10 Nasal Secretion SARS-CoV-2 Antigen (Rapid) - Final Radiography Diagnostic Testing: Radiology Impression Chest X-Ray 06/09/23 05:55 IMPRESSION: Improved aeration of both lung bases with residual patchy bibasilar infiltrates worse on the left side. Persistent 2.2 cm x 0.9 David nodule in the right lung base. Further follow-up recommended. Electronically Signed: Joaquim Montenegro MD at 8:46 EDT , Rhythm Strip Rhythm Strip: Sinus Rhythm Rate: 99 Ectopy: None Physical Exam Narrative alert, oriented x3 and no apparent distress Constitutional Narrative: Patient appears older than her stated age General Appearance: cooperative, well kempt and well developed Orientation / Consciousness: awake, oriented to person, oriented to place and oriented to time HEENT normocephalic, head/scalp atraumatic and moist oral mucous membranes Eyes PERRL, EOMs intact bilaterally and conjunctivae normal Neck supple, no JVD, thyroid normal and no carotid bruits General: trachea midline Resp normal respiratory effort, no retractions and no use of accessory muscles Resp Narrative: Breath sounds are diminished bilaterally Auscultation: Negative for rales, rhonchi or wheezes Cardio regular rate, regular rhythm, S1 normal heart sound, S2 normal heart sound, no murmurs, no rub and no gallops GI normal to inspection, nondistended, normoactive bowel sounds, soft to palpation, non-tender and non-distended Extremity no clubbing, cyanosis or edema Extremity Narrative: Patient has stasis dermatitis changes over both lower extremities Neuro oriented x3, CN's II-XII intact bilaterally, moves all extremities, no focal motor deficits and no sensory deficits noted Sensorium / Orientation: awake, alert, oriented to person, oriented to place and oriented to time Speech: speech normal Psych affect normal Assessment & Plan Assessment/Plan (1) Acute hypoxemic respiratory failure: PLAN: Plan 1. Acute hypoxic respiratory failure secondary to congestive heart failure with preserved ejection fraction and chronic obstructive pulmonary disease-we will continue to wean oxygen if possible, patient will need home O2 at the time of discharge #2 acute congestive heart failure with preserved ejection fraction-patient's creatinine appears stable at this time #3 chronic obstructive pulmonary disease-patient is on prednisone at this time and aerosol treatments, patient has completed 7 days of antibiotic treatment at this time #4 polycythemia-etiology unclear at this point, patient will need follow-up with hematology as an outpatient Total clinical time spent by myself addressing the patient's medical issues, reviewing all of her data, and collaborating with patient's care team: 25 minutes Charges/Coding Visit Charges Inpatient E&M: 71340 [facility]
[2023-06-10] VITALS (11 sets, daily range): BP systolic 134–144; BP diastolic 74–90; PULSE 84–97; RESP 18–20; TEMP 36.6–36.8; O2SAT 86–94; BMI 28.5
[2023-06-10] MEDS: Nystatin Powder 15gm Bottle 1 APPLIC TOPICAL ×2 (05:44→14:30)
[2023-06-10] MEDS: Ipratropium/Albuterol Sulfate 3 ML AMPUL.NEB INHALATION ×2 (06:48→12:52)
[2023-06-10 06:55] LABS: Anion Gap 5 (5-15); BUN 27 mg/dL (7-18); BUN/Creat Ratio 33.3 RATIO (10-20); Calcium,Total 8.9 mg/dL (8.5-10.1); Chloride 96 mmol/L (98-107); Creatinine, Serum 0.81 mg/dL (0.55-1.02); EST Glomerular Filtration Rate 76 mL/min (>60); Est Glom Filt Rate - Afr Amer 92 mL/min (>60); Estimated Creatinine Clearance 65.69 ml/min; Glucose 73 mg/dL (74-106); Potassium 4.8 mmol/L (3.5-5.1); Sodium Level 132 mmol/L (136-145)
--- NOTE | 2023-06-10 07:44 | PCM.PN.INT ---
Assessment & Plan Assessment/Plan (1) Acute hypoxemic respiratory failure: PLAN: Plan RECOMMENDATIONS: 1. Wean supplemental oxygen to maintain saturations at or above 90%. 2. Continue bronchodilators and steroids. Please discharge home with prednisone 40 mg daily x5 days. 3. BiPAP therapy with naps and nightly. 4. Obtain follow-up CT scan in 6 weeks. 5. Outpatient pulmonary follow-up within 2 weeks of discharge is warranted. 6. Once the patient is able to ambulate on 6 L/min or less of supplemental oxygen, she can be discharged home with outpatient pulmonary follow-up. IMPRESSIONS: 1. Acute hypoxemic respiratory failure Clinical concern for undiagnosed obstructive lung disease and heart failure with preserved ejection fraction contributing to acute presentation. The patient has bilateral emphysematous changes on CT imaging of the chest along with a nodular density, which is pleural-based, in the right lower lobe. The patient also has bibasilar infiltrates and a right-sided pleural effusion. She was ultimately treated with antimicrobials, with subsequent improvement in her oxygenation and clinical state. Continue to wean supplemental oxygen as tolerated to maintain saturations at or above 90%. Recommend continuing BiPAP therapy, at a minimum, with naps and nightly. The nodular density noted on CT imaging will need further follow-up evaluation. I would recommend that a repeat CT scan be completed in 6 weeks. If this lesion persists, will need to consider percutaneous biopsy. Otherwise, continue supportive measures including scheduled bronchodilators and steroids. The patient will require close outpatient pulmonary follow-up so that baseline PFTs can be obtained. 2. Polycythemia Most likely secondary to underlying lung disease leading to chronic hypoxemia. As noted above, the patient will require further outpatient pulmonary workup. I do anticipate a home-going supplemental oxygen requirement. The patient will ultimately follow-up with hematology after discharge as well. 3. History of tobacco dependency The patient reported that she quit smoking completely approximately 3 weeks ago. Ongoing tobacco cessation was strongly recommended. This note was generated with Vizifyation software. It may contain incorrect words, spelling, and punctuation that were not noted in checking the note before signing. Subjective Subjective The patient was seen and examined at the bedside this morning. Events from the last 24 hours have been reviewed. The patient is currently afebrile, hemodynamically stable and maintaining appropriate oxygen saturations on 3 L/min via nasal cannula. Creatinine is within normal limits. The patient feels well and is anxious to be discharged home. Objective Data Objective Data The patient's most recent lab work, culture data and imaging studies have all been personally reviewed. Infectious work-up has been unrevealing to date. Vital Signs: Vital Signs Temp Pulse Resp BP Pulse Ox O2 Del Method O2 Flow Rate 98.2 F 97 20 H 141/90 H 91 Nasal Cannula 3 06/10/23 05:34 06/10/23 05:34 06/10/23 05:34 06/10/23 05:34 06/10/23 05:34 06/10/23 05:34 06/10/23 05:34 FiO2 60 06/07/23 04:28 Oxygen Flow Rate (L/min) [At 6 REST with Oxygen] Oxygen Flow Rate (L/min) [ 5 AMBULATING with Oxygen #2] Oxygen Flow Rate (L/min) [ 4 AMBULATING with Oxygen #1] Oxygen Flow Rate (L/min) 3 Oxygen Delivery Method Nasal Cannula Weight: 177 lb 0.499 oz Body Mass Index (BMI) 28.5 Intake & Output: Intake and Output for Last 24 Hours 06/08/23 06/09/23 06/10/23 23:59 23:59 23:59 Intake Total 860 / 1180 1170 / 1300 130 / 130 Output Total 1275 / 1275 Balance -415 / -95 1170 / 1300 130 / 130 Lab / Micro Data Attestation: I reviewed the patient's lab results. 06/08/23 05:37 06/10/23 06:01 Labs: Laboratory Results - last 24 hr 06/10/23 06:01: Sodium 132 L, Potassium 4.8, Chloride 96 L, Carbon Dioxide 31.0, Anion Gap 5, BUN 27 H, Creatinine 0.81, Estim Creat Clear Calc 65.69, Est GFR (MDRD) Af Amer 92, Est GFR (MDRD) Non-Af 76, BUN/Creatinine Ratio 33.3 H, Glucose 73 L, Calcium 8.9 Micro: Microbiology 06/07/23 18:50 Sputum, Expectorated/Coughed Gram Stain - Final 06/07/23 18:50 Sputum, Expectorated/Coughed Respiratory Culture - Final Presumptive C albicans 06/05/23 08:20 Urine, Clean Catch Legionella Antigen - Final 06/05/23 08:20 Urine, Clean Catch Streptococcus pneumoniae Antigen (M - Final 06/05/23 15:10 Nasal Secretion SARS-CoV-2 Antigen (Rapid) - Final Radiography Diagnostic Testing: Radiology Impression Chest X-Ray 06/09/23 05:55 IMPRESSION: Improved aeration of both lung bases with residual patchy bibasilar infiltrates worse on the left side. Persistent 2.2 cm x 0.9 David nodule in the right lung base. Further follow-up recommended. Electronically Signed: Joaquim Montenegro MD at 8:46 EDT , Rhythm Strip Rhythm Strip: Sinus Rhythm Rate: 99 Ectopy: None Physical Exam Const alert and no apparent distress Constitutional Narrative: Sitting in bedside recliner. General Appearance: cooperative HEENT normocephalic and head/scalp atraumatic Eyes PERRL, EOMs intact bilaterally and conjunctivae normal Neck supple General: trachea midline Chest inspection of chest normal Resp normal respiratory effort Auscultation: diminished lung sounds; Negative for rales, rhonchi or wheezes Cardio regular rate and regular rhythm GI normal to inspection, nondistended, normoactive bowel sounds Extremity no clubbing, cyanosis or edema Skin no rashes or lesions noted Neuro oriented x3, CN's II-XII intact bilaterally and moves all extremities Psych cooperative and affect normal Charges/Coding Visit Charges Inpatient E&M: 43421 Subs Hosp L2
[2023-06-10] MEDS: Heparin Injection (Vial) 5,000 UNIT/ML VIAL 5000 UNIT SC (07:57)
[2023-06-10] MEDS: Menthol/Lanolin/Calamine/Znox 113 GM Tube 1 APPLIC TOPICAL (07:57)
[2023-06-10] MEDS: predniSONE 20 MG Tablet 40 MG PO (07:57)
--- NOTE | 2023-06-10 14:27 | DCINST_ITS ---
Discharge Instructions Diet Discharge Diet: No restrictions Activity Discharge Activity: Return to Normal Activity Weight Bearing Status: Full weight bearing Follow Up Care Test Results: Test results from this visit will be discussed in further detail at your follow- up appointment, if applicable. Discharge Plan Admission Admit Date/Time: 06/03/23 17:24 Primary Reason for Your Visit: respiratory failure Attending Provider: Harley Mcgee Primary Care Provider: Care Physician,No Primary Consulting Providers: Harley Mcgee; Boris Hill; Milton Brian; Hernan Lundy; Phan Caceres; Linda Warren NP; Marisa St Instructions Additional Instructions / Restrictions: Oxygen at 4 liters continuously Discharge Orders/Prescriptions Prescriptions: New prednisone 20 mg Tablet 40 mg PO BREAKFAST Qty: 11 0RF Rx Instructions: two daily for 3 days, then one a day for 3 days, then 1/2 daily for 4 days, then stop nystatin [Nyamyc] 100,000 unit/gram Powder 1 applic topical TID Qty: 0 0RF Protocol: *Topical Application Instructions APPLICATION INSTRUCTIONS: apply to abdominal folds albuterol sulfate [ProAir HFA] 90 mcg/actuation HFA aerosol inhaler 2 puff inhalation .QID Qty: 8.5 0RF Discontinued naproxen sodium [Aleve] 220 mg capsule 440 mg PO DAILY PRN (Reason: pain) Referrals / Follow Up: Milton Brian DO [Med Staff - Active Staff] - See Referral Note (in 2 weeks-call for appointment) Erica Rojas MD [Med Staff - Active Staff] - See Referral Note (within one month-call for appointment) Deejay Shi MD [Non-Staff] - Care Physician,No Primary [Primary Care Provider] - Disposition Disposition (needs filled in before D/C Order can be placed): Home, Self Care
--- NOTE | 2023-06-10 14:39 | CASEMGMT ---
GRACIE LICONA updated that patient will need oxygen at discharge. GRACIE LICONA in to discuss home oxgyen at discharge. Patient prefers [employer]. Patient will need follow-up at discharge and would like Caterina Cedeño, assistant community manager to schedule appt. GRACIE LICONA received script for home oxygen. GRACIE LICONA sent referral to [employer] via [facility]. Patient had no further questions or concerns at this time.
--- NOTE | 2023-06-10 14:43 | CASEMGMT ---
Patient does not have insurance. SW utilized [facility] prescription assistance program. Susu WILDER
--- NOTE | 2023-06-10 14:46 | DS.PCM_ITS ---
Providers Date of Admission: 06/03/23 Date of Discharge: 06/10/23 Primary Care Physician: [facility] Consultations 06/04/23 12:49 Consult: Heel Seat Filler / Pulmonary Medicine Routine Consulting Provider: [facility] Reason for Consult: acute hypoxic respiratory failure EMERGENT Consult: No MD Notified: Yes Date Notified: 06/04/23 Time Notified: 12:49 Method of Notification: Text Reason For Visit: ACUTE HYPOXIC RESPIRATORY FAILURE, CHF Diagnosis Discharge Diagnosis (1) Acute hypoxemic respiratory failure: Status: Acute Code(s): J96.01 - Acute respiratory failure with hypoxia Plan 1. Acute hypoxic respiratory failure secondary to acute congestive heart failure with preserved ejection fraction and chronic obstructive pulmonary disease-we will continue to wean oxygen if possible, patient will need home O2 at the time of discharge #2 acute congestive heart failure with preserved ejection fraction-patient's creatinine appears stable at this time #3 chronic obstructive pulmonary disease-patient is on prednisone at this time and aerosol treatments, patient has completed 7 days of antibiotic treatment at this time #4 polycythemia-etiology unclear at this point, patient will need follow-up with hematology as an outpatient Total clinical time spent by myself addressing the patient's medical issues, reviewing all of her data, and collaborating with patient's care team: 25 minutes Medications at Discharge Home Medications albuterol sulfate 90 mcg/actuation aerosol inhaler (ProAir HFA) 2 puff inhalation .QID shortness of breath or wheezing #8.5 grams 06/10/23 nystatin 100,000 unit/gram topical powder (Nyamyc) 1 applic topical TID #0 grams 06/10/23 prednisone 20 mg tablet 40 mg (2 x 20 mg) PO BREAKFAST #11 tabs 06/10/23 Hospital Course Operations None Procedures 2-D Echocardiogram Summary of Care Provided Minutes Spent on Discharge: 31 Hospital Course: This 63-year-old white female was seen in the emergency room at [facility] with a chief complaint of increased shortness of breath and generalized edema of her lower extremities over several days. Patient did not complain of any chest pain, she had not seen a physician in approximately 5 years. Patient was noted to have a pulse ox of 64% on room air at triage, evaluation of the patient in the emergency room revealed her to be tachypneic and cyanotic, she had moderate respiratory distress on examination, work-up in the emergency room showed the patient have an elevated hemoglobin at 21.1, beta natruretic peptide was elevated at 490, chest x-ray showed evidence of vascular congestion suggestive of CHF with bibasilar atelectasis. Patient was admitted to PCU, she was given IV Lasix, echocardiogram was performed which showed a normal ejection fraction and no evidence of pulmonary hypertension, she was seen in consultation by pulmonary medicine and her oxygen was slowly weaned over the next several days. Patient was seen by PT and OT during her hospital stay. On 06/10/2023, patient was seen and examined: On examination she appeared in good health and spirits, she does not appear to be in any distress. Vital signs as documented. Skin warm and dry and without overt rashes. Neck without JVD, thyroid appears normal, trachea is midline, neck is supple. Lungs clear, normal air movement was noted. Heart exam notable for regular rhythm, normal sounds and absence of murmurs, rubs or gallops. Abdomen unremarkable and without evidence of organomegaly, masses, or abdominal aortic enlargement, bowel sounds are present in all 4 quadrants, no abdominal tenderness was noted. Extremities nonedematous, no cyanosis was noted, no clubbing was noted. Neuro: Cranial nerves II through XII are grossly intact, no focal motor deficits were noted, sensation to light touch and pinprick is intact, motor exam 5/5 throughout. Psych: Patient is alert and oriented x3, she does not appear anxious or depres sed, she does not appear agitated. Patient appears stable for discharge home on 06/10/2023, she required 4 L of oxygen via nasal cannula at the time of discharge from the hospital, oxygen was set up for the patient and she was expected to wear it inside her home and outside her home during ADLs. She was instructed to follow-up with hematology regarding her abnormal hemoglobin as an outpatient. Weight / BMI Weight Weight: 80.3 kg Body Mass Index (BMI) 28.5 ABG / Lab / Microbiology Data 06/08/23 05:37 06/10/23 06:01 Laboratory: Laboratory Results - last 24 hr 06/10/23 06:01: Sodium 132 L, Potassium 4.8, Chloride 96 L, Carbon Dioxide 31.0, Anion Gap 5, BUN 27 H, Creatinine 0.81, Estim Creat Clear Calc 65.69, Est GFR (MDRD) Af Amer 92, Est GFR (MDRD) Non-Af 76, BUN/Creatinine Ratio 33.3 H, Glucose 73 L, Calcium 8.9 Microbiology: Microbiology 06/07/23 18:50 Sputum, Expectorated/Coughed Gram Stain - Final 06/07/23 18:50 Sputum, Expectorated/Coughed Respiratory Culture - Final Presumptive C albicans 06/05/23 08:20 Urine, Clean Catch Legionella Antigen - Final 06/05/23 08:20 Urine, Clean Catch Streptococcus pneumoniae Antigen (M - Final 06/05/23 15:10 Nasal Secretion SARS-CoV-2 Antigen (Rapid) - Final D/C Instructions Discharge Diet: No restrictions Weight Bearing Status: Full weight bearing Meaningful Use Info Meaningful Use Diagnoses (Choose all that apply): CHF CHF DAMIAN/ARB ordered at discharge?: No Reason DAMIAN/ARB not ordered?: Normal EF Documented LVEF (%): 65 Discharge Plan Admission Admit Date/Time: 06/03/23 17:24 Primary Reason for Your Visit: respiratory failure Attending Provider: Harley Mcgee Primary Care Provider: Care Physician,No Primary Consulting Providers: Harley Mcgee; Boris Hill; Milton Brian; Hernan Lundy; Phan Caceres; Linda Warren NP; Marisa St Instructions Additional Instructions / Restrictions: Oxygen at 4 liters continuously psychiatric secretary left a message with the clinic to call to set up appointment with patient because they closed at noon today Discharge Orders/Prescriptions Prescriptions: New prednisone 20 mg Tablet 40 mg PO BREAKFAST Qty: 11 0RF Rx Instructions: two daily for 3 days, then one a day for 3 days, then 1/2 daily for 4 days, then stop nystatin [Nyamyc] 100,000 unit/gram Powder 1 applic topical TID Qty: 0 0RF Protocol: *Topical Application Instructions APPLICATION INSTRUCTIONS: apply to abdominal folds albuterol sulfate [ProAir HFA] 90 mcg/actuation HFA aerosol inhaler 2 puff inhalation .QID Qty: 8.5 0RF Discontinued naproxen sodium [Aleve] 220 mg capsule 440 mg PO DAILY PRN (Reason: pain) Referrals / Follow Up: Milton Brian DO [Med Staff - Active Staff] - See Referral Note (in 2 weeks-call for appointment) Erica Rojas MD [Med Staff - Active Staff] - See Referral Note (within one month-call for appointment) Deejay Shi MD [Non-Staff] - Care Physician,No Primary [Primary Care Provider] - Disposition Disposition (needs filled in before D/C Order can be placed): Home, Self Care Charges/Coding Visit Charges Inpatient E&M: 19939 Disch Hosp >30min
--- NOTE | 2023-06-10 15:32 | PHA.DC_ITS ---
Pharmacy [facility] has performed discharge medication reconciliation and counseling for this patient. 1. ALBUTEROL MDI 2PUFFS INHALATION 4X/DAY FOR SOB OR WHEEZING 2. NYSTATIN 100,000UNITS/GRAM TOPICAL POWDER 1 APPLICATION TID 3. PREDNISONE 40MG PO BREAKFAST X 3 DAYS, THEN 20MG X 3 DAYS, THEN 10MG X 4 DAYS The patient's discharge medication list was reviewed for discrepancies and discrepancies were resolved. The patient was counseled on the following discharge medications and changes in medications for homegoing were reviewed. The Reason for Use, instructions for use, and potential side effects were reviewed for all new medications. The patient's questions regarding all of their medications were answered. The patient was able to verbally demonstrate an understanding of their discharge medications. Patient counseled by pharmacy billing adjudicatorMoriah. Medications at Discharge Home Medications albuterol sulfate 90 mcg/actuation aerosol inhaler (ProAir HFA) 2 puff inhalation .QID shortness of breath or wheezing #8.5 grams 06/10/23 nystatin 100,000 unit/gram topical powder (Nyamyc) 1 applic topical TID #0 grams 06/10/23 prednisone 20 mg tablet 40 mg (2 x 20 mg) PO BREAKFAST #11 tabs 06/10/23
--- NOTE | 2023-06-10 16:38 | NURSING ---
Patient discharged home per orders. Sent with home O2. [facility] Medications dropped off from outpatient pharmacy. Son to transport patient in private vehicle
== END 2023-06-10 16:58 | disposition home or self-care (01) | DRG 189 ==
LOC: ED 16:06 → PCU 17:48
PROVIDERS: Internal Medicine Critical Care Medicine; Student in an Organized Health Care Education/Training Program; Admitting Provider Internal Medicine; Emergency Provider Emergency Medicine; Visit Provider Internal Medicine
DX: J96.01 Acute respiratory failure with hypoxia (principal); I50.31 Acute diastolic (congestive) heart failure; J44.1 Chronic obstructive pulmonary disease with (acute) exacerbation; D75.1 Secondary polycythemia; E87.6 Hypokalemia; R91.1 Solitary pulmonary nodule; Z91.198 Patient's noncompliance with other medical treatment and regimen for other reason; Z79.52 Long term (current) use of systemic steroids; Z87.891 Personal history of nicotine dependence
CPT/HCPCS: 36415; 71045; 71046; 71275; 80048; 83880; 84145; 84484; 85025; 87070; 87205; 87426; 87449; 87641; 93005; 93306; 94002; 94003; 94640; 94762; 97110; 97162; 97166; 97530; 97535; 99285; Q9967; A4216; J1940

== ENCOUNTER 2023-06-19 15:29 | Inpatient (IN) | payer MEDICAID, SELFPAY ==
[2023-06-19] VITALS (10 sets, daily range): BP systolic 135–141; BP diastolic 69–86; PULSE 70–107; RESP 16–24; TEMP 36.2–37.2; O2SAT 18–96; BMI 28.4; BMI 27.7
[2023-06-19 16:21] LABS: Absolute Lymphocyte Count 0.57 X10^3/uL (0.83-4.51); Absolute Neutrophil Count 5.7 X10^3/uL (2.0-7.7); Basophil# 0.03 X10^3/uL; Basophil% 0.5 % (0-1); Eosinophil# 0.01 X10^3/uL; Eosinophils% 0.2 % (0-5); Lymphocyte # 0.57 X10^3/ul (0.83-4.51); Lymphocyte % 8.6 % (19-41); Mean Corp Hgb Conc 32.1 g/dL (32-36); Mean Corpuscular Hgb 30.6 pg (27.0-32.0); Mean Corpuscular Volume 95.3 fL (81-99); Mean Platelet Vol. 9.8 fl (6.2-12.0); Monocyte# 0.37 X10^3/uL; Monocyte% 5.6 % (0-10); NRBC Flagged by Analyzer 0 % (0-5); Neutrophil # 5.65 X10^3/uL (2.7-7.7); Neutrophil % 84.6 % (47-70); POSITIVE DIFFERENTIAL YES; Platelet Count 123 K/mm3 (150-450); RBC Distribution Width CV 14.8 % (11.6-14.6); RBC Distribution Width SD 50.7 fl (35.1-43.9); Red Blood Count 6.83 M/mm3 (4.2-5.4); White Blood Count 6.7 K/mm3 (4.4-11.0)
[2023-06-19] MEDS: Albuterol 2.5 MG/3 ML VIAL.NEB. INHALATION (16:25)
[2023-06-19] MEDS: Ipratropium/Albuterol Sulfate 3 ML AMPUL.NEB INHALATION ×2 (16:25→22:13)
[2023-06-19] MEDS: MethylPREDNISolone 125 MG/2 ML Vial IV (16:27)
--- NOTE | 2023-06-19 16:30 | EKG12_ITS ---
Test Reason : Blood Pressure : / mmHG Vent. Rate : 114 BPM Atrial Rate : 114 BPM P-R Int : 134 ms QRS Dur : 072 ms QT Int : 322 ms P-R-T Axes : 084 111 040 degrees QTc Int : 443 ms Sinus tachycardia Biatrial enlargement Right axis deviation Pulmonary disease pattern Abnormal ECG Confirmed by RIAZ MOSQUEDA, DYLAN ([id number]), technical editor EUGENE SANTOS ([id number]) on 07/16/2023 2:31:28 PM Referred By: Confirmed By:WENDY MELLO MD
[2023-06-19 16:38] LABS: Hematocrit 65.1 % (37-47)
[2023-06-19 16:39] LABS: Differential Indicated SCAN CRITERIA MET; Hemoglobin 20.9 g/dL (12.0-15.0)
[2023-06-19 16:44] LABS: Anion Gap 5 (5-15); BUN 13 mg/dL (7-18); BUN/Creat Ratio 18.5 RATIO (10-20); Calcium,Total 8.9 mg/dL (8.5-10.1); Chloride 101 mmol/L (98-107); EST Glomerular Filtration Rate 89 mL/min (>60); Est Glom Filt Rate - Afr Amer 108 mL/min (>60); Estimated Creatinine Clearance 76.01 ml/min; Glucose 106 mg/dL (74-106); Potassium 4.6 mmol/L (3.5-5.1); Sodium Level 132 mmol/L (136-145)
--- NOTE | 2023-06-19 16:58 | EDS_ITS ---
HPI <Dr. George Arriola MD - Last Filed: 06/19/23 21:50> History of Present Illness Chief Complaint: Shortness of Breath Informant: patient <ONDINA Douglas - Last Filed: 06/19/23 19:24> Narrative Narrative: Patient is 63-year-old female that was recently admitted to weeks ago who presents to the emergency department for ongoing shortness of breath. Patient is on 4 L nasal cannula oxygen. This is new for the last 2 weeks. Patient states that over the last 3 to 4 days, the patient is having difficulty breathing, she feels more chest pressure, she also having worsening dyspnea on exertion as well as orthopnea. She denies any nausea or vomit. Pay states she might have fever and chills. She does have a cough. She is currently finishing up a prednisone taper. [facility] <Dr. George Arriola MD - Last Filed: 06/19/23 21:50> [facility] Medical History COPD (chronic obstructive pulmonary disease) Home Medications albuterol sulfate 90 mcg/actuation aerosol inhaler (ProAir HFA) 2 puff inhalation .QID shortness of breath or wheezing #8.5 grams 06/10/23 [Rx Last Taken 06/19/23] prednisone 20 mg tablet 40 mg (2 x 20 mg) PO BREAKFAST #11 tabs 06/10/23 [Rx Last Taken 06/19/23] Allergy/AdvReac Type Severity Reaction Status Date / Time No Known Allergies Allergy Verified 06/19/23 15:30 Surgical History History of right hip replacement Social History Smoking Status: Former smoker ROS <ONDINA Douglas - Last Filed: 06/19/23 19:24> ROS ED ROS Narrative Constitutional: Negative for weight loss, weakness., Positive for fever and chills Eyes: Negative for vision loss, vision change, double vision ENT: Negative for any sore throat, ear pain, congestion Cardiovascular: Negative for any chest pain, palpitations. Positive for tightness Respiratory: Negative for any sputum production, hemoptysis. Positive for cough, dyspnea, dyspnea on exertion, orthopnea Gastrointestinal: Negative for any abdominal pain, nausea, vomiting, diarrhea, constipation, blood in stool, blood in vomit : Negative for any urinary frequency, dysuria, retention, blood in urine Muscle skeletal: Negative for any muscle joint pain, stiffness, myalgias, arthralgias, neck pain, back pain Neurological: Negative for any headache, syncope, numbness or tingling, dizziness Skin: Negative for any rashes, lumps, itching, abrasions, lacerations Psychiatric: Negative for any depression, anxiety, stress, suicidal ideation, homicidal ideation Hematologic: Negative for any easy bruising, excessive bruising, easy bleeding Allergies: Negative for any eczema, hives, rash EXAM <Dr. George Arriola MD - Last Filed: 06/19/23 21:50> Physical Exam Const Vital Signs: 06/19/23 15:30 06/19/23 16:08 06/19/23 16:10 Temperature 97.2 F L Temperature Source Temporal Pulse Rate 70 107 H Respiratory Rate 16 Respiratory Effort Short of Breath Respiratory Pattern Blood Pressure 141/72 H 135/76 H Blood Pressure Mean 95 95 Pulse Ox 94 18 Oxygen Delivery Method Nasal Cannula Nasal Cannula Oxygen Flow Rate (L/min) 4 4 06/19/23 16:25 06/19/23 18:58 Temperature Temperature Source Pulse Rate 100 Respiratory Rate 18 20 H Respiratory Effort Respiratory Pattern Normal Blood Pressure Blood Pressure Mean Pulse Ox 87 Oxygen Delivery Method Nasal Cannula Oxygen Flow Rate (L/min) 4 <ONDINA Douglas - Last Filed: 06/19/23 19:24> Physical Exam Narrative Exam Narrative: Vital signs reviewed. Patient is stable on 4 L nasal cannula oxygen which is her baseline. HEET: Head normocephalic atraumatic, TMs clear bilaterally. Posterior pharynx is clear, moist mucous membranes. Nares clear bilaterally. Neck: Supple with no lymphadenopathy or tenderness. No signs of meningismus, negative jolt sign. Cardiac: Regular rate and rhythm no murmurs gallops or rubs, equal peripheral pulses bilaterally. Respiratory: Patient's respiratory exam showed minimal airflow throughout pul monary exam.. No chest tenderness. Abdomen: Soft, nontender, nondistended. No abdominal bruit or pulsatile masses. No hepatosplenomegaly Extremities: No peripheral edema, no signs of gross trauma or deformity. Active full range of motion of all extremities. Neuro: Cranial nerves II through XII intact, no focal neurological deficits. Skin: Clean dry and intact with no rash, purpura, petechiae, vesicles or pustules. Backs/flank: No CVA tenderness, no midline spinal tenderness, no deformity. Psych: Normal mood and affect. No SI, HI or acute psychosis. Const Vital Signs: 06/19/23 15:30 06/19/23 16:08 06/19/23 16:10 Temperature 97.2 F L Temperature Source Temporal Pulse Rate 70 107 H Respiratory Rate 16 Respiratory Effort Short of Breath Respiratory Pattern Blood Pressure 141/72 H 135/76 H Blood Pressure Mean 95 95 Pulse Ox 94 18 Oxygen Delivery Method Nasal Cannula Nasal Cannula Oxygen Flow Rate (L/min) 4 4 06/19/23 16:25 06/19/23 18:58 Temperature Temperature Source Pulse Rate 100 Respiratory Rate 18 20 H Respiratory Effort Respiratory Pattern Normal Blood Pressure Blood Pressure Mean Pulse Ox 87 Oxygen Delivery Method Nasal Cannula Oxygen Flow Rate (L/min) 4 Positive well nourished and well developed General Appearance ED: well developed MDM <Dr. George Arriola MD - Last Filed: 06/19/23 21:50> MDM Lab Data Labs: Laboratory Results - last 24 hr 06/19/23 16:10 WBC 6.7 RBC 6.83 H Hgb 20.9 H* Hct 65.1 H MCV 95.3 MCH 30.6 MCHC 32.1 RDW Std Deviation 50.7 H RDW Coeff of Nick 14.8 H Plt Count 123 L MPV 9.8 Immature Gran % (Auto) 0.500 Neut % (Auto) 84.6 H Lymph % (Auto) 8.6 L [place] % (Auto) 5.6 Eos % (Auto) 0.2 Baso % (Auto) 0.5 Absolute Neuts (auto) 5.7 Absolute Lymphs (auto) 0.57 L Nucleated RBC % 0 Differential Comment SCANNED Sodium 132 L Potassium 4.6 Chloride 101 Carbon Dioxide 26.0 Anion Gap 5 BUN 13 Creatinine 0.70 Estim Creat Clear Calc 76.01 Est GFR (MDRD) Af Amer 108 Est GFR (MDRD) Non-Af 89 BUN/Creatinine Ratio 18.5 Glucose 106 Calcium 8.9 Troponin I High Sens 12 B-Natriuretic Peptide 48.4 Radiography Diagnostic Testing: Clinical Impression(s) from Imaging Studies Chest X-Ray 06/19/23 17:05 IMPRESSION: Right lower lobe nodular density unchanged. COPD. Ileus. Electronically Signed: Familia Ewing MD at 19:33 EDT , EKG Initial EKG: Comments: My independent interpretation the patient's EKG shows sinus rhythm with tachycardic rate at 114. Irregular baseline but no noted ectopy. No acute ST elevation or depression. AL interval, QRS duration and QTc is normal. Overall this looks like sinus tachycardia. Treatment and Re-Evaluation :: I have personally performed a face to face assessment of the patient and have reviewed the SALUD Note. I performed a substantive portion of the visit including all aspects of the following. My bueno findings include: History: Patient presents with dyspnea. She states she is not sure if its worse than when she left the hospital but it certainly does not seem better. She is just finished her steroid taper. She finished antibiotics in the hospital. She has a long history of COPD. She used to be on Trelegy. But she quit that 3 years ago and has not seen anyone since. She was in the hospital. She had a CTA that was negative for pulmonary embolus. She had an echocardiogram. She was sent home on steroid taper. She is also on albuterol but no other breathing treatments. She does not have a nebulizer. She is not having pain. Exam: Patient awake alert carrying on normal conversation. She is on her 4 L which is new since her admission. She saturates normally at 94% on her 4 L showing no hypoxia. Heart is regular. Tones are not muffled. Pulses are equal. Her lungs are not moving much air at all. She is very tight. But I hear no rhonchi. She does have a little end expiratory wheezing only when she takes a large forced deep breath. She has trace peripheral edema but is not different than normal. Medical Decision Making: Patient will be given breathing treatments steroids x- ray and blood work. This is pending. <ONDINA Douglas - Last Filed: 06/19/23 19:24> [facility] Lab Data Labs: Laboratory Results - last 24 hr 06/19/23 16:10 WBC 6.7 RBC 6.83 H Hgb 20.9 H* Hct 65.1 H MCV 95.3 MCH 30.6 MCHC 32.1 RDW Std Deviation 50.7 H RDW Coeff of Nick 14.8 H Plt Count 123 L MPV 9.8 Immature Gran % (Auto) 0.500 Neut % (Auto) 84.6 H Lymph % (Auto) 8.6 L [place] % (Auto) 5.6 Eos % (Auto) 0.2 Baso % (Auto) 0.5 Absolute Neuts (auto) 5.7 Absolute Lymphs (auto) 0.57 L Nucleated RBC % 0 Differential Comment SCANNED Sodium 132 L Potassium 4.6 Chloride 101 Carbon Dioxide 26.0 Anion Gap 5 BUN 13 Creatinine 0.70 Estim Creat Clear Calc 76.01 Est GFR (MDRD) Af Amer 108 Est GFR (MDRD) Non-Af 89 BUN/Creatinine Ratio 18.5 Glucose 106 Calcium 8.9 Troponin I High Sens 12 B-Natriuretic Peptide 48.4 Radiography Diagnostic Testing: Clinical Impression(s) from Imaging Studies Chest X-Ray 06/19/23 17:05 IMPRESSION: Right lower lobe nodular density unchanged. COPD. Ileus. Electronically Signed: Familia Ewing MD at 19:33 EDT , Treatment and Re-Evaluation :: Patient appears to be in no obvious distress, patient is on her 4 L nasal cannula oxygen. Patient presents the [place] apartment with worsening cough, increased shortness of breath. Patient received a full cardiac work-up. Chest x-ray two-view. All radiologic examinations were read, reviewed by the emergency department attending. From these reads, a plan of care will be put in place. Patient will be started on breathing treatments, as well as IV steroids. Patient be treated for COPD exacerbation. Patient also received a BNP concerning for any fluid overload. Possible other diagnoses are CHF exacerbation, pneumonia, viral illness such as COVID-19 or influenza Patient on reevaluation was feeling slightly better after the treatments, patient still has minimal air movement. Patient on 4 L is 95 to 96%. Patient's CBC showed hemoconcentration with RBCs of 6.83, hemoglobin 20.9, hematocrit 65.1. This is chronic for this patient over the last month. Patient's chemistries were unremarkable. Patient's chest x-ray looked improved, no pleural effusions. At this time, is no evidence of any ACS, IL, troponin was negative. Patient will walk with a pulse ox while on her oxygen to see how she does. After patient was walking, she dropped to 87%, she was tachypneic, having difficulty catching her breath. She states she felt dizzy. At this time, patient has been on oxygen for 2 weeks at 4 L, patient is only on 1 inhaler, she is currently finishing a prednisone taper. Patient was given 125 mg present on. I do believe the patient needs to be admitted to the hospital for COPD exacerbation, hypoxia. She also needs better instruction, education regarding COPD and her oxygen needs. Patient is agreeable with the plan. Patient be admitted to hospitalist. I have personally performed a face to face assessment of the patient and have reviewed the SALUD Note. I performed a substantive portion of the visit including all aspects of the following. My bueno findings include: History: Patient presents with dyspnea. She states she is not sure if its worse than when she left the hospital but it certainly does not seem better. She is just finished her steroid taper. She finished antibiotics in the hospital. She has a long history of COPD. She used to be on Trelegy. But she quit that 3 years ago and has not seen anyone since. She was in the hospital. She had a CTA that was negative for pulmonary embolus. She had an echocardiogram. She was sent home on steroid taper. She is also on albuterol but no other breathing treatments. She does not have a nebulizer. She is not having pain. Exam: Patient awake alert carrying on normal conversation. She is on her 4 L which is new since her admission. She saturates normally at 94% on her 4 L showing no hypoxia. Heart is regular. Tones are not muffled. Pulses are equal. Her lungs are not moving much air at all. She is very tight. But I hear no rhonchi. She does have a little end expiratory wheezing only when she takes a large forced deep breath. She has trace peripheral edema but is not different than normal. Medical Decision Making: Patient will be given breathing treatments steroids x- ray and blood work. This is pending. Discharge Plan Dx/Rx/DC Orders Clinical Impression: Acute exacerbation of chronic obstructive pulmonary disease, Elevated hemoglobin, Hypoxia Disposition Disposition: Acute Care Hospital [facility] Discharge Date/Time: 06/19/23 21:02
--- NOTE | 2023-06-19 17:05 | RAD_ITS ---
STUDY: X-RAY CHEST REASON FOR EXAM: Female, 63 years old. cough TECHNIQUE: Frontal and lateral views of the chest. COMPARISON: June 09, 2023 FINDINGS: Right lower lobe nodular density unchanged. Lungs are hyperaerated. The lungs are clear and expanded. There is no demonstrated pleural abnormality. Normal size heart. Normal mediastinum and mary. Normal visualized pulmonary arteries. Normal visualized aortic arch and descending thoracic aorta. Normal visualized thoracic spine. Normal visualized ribs, clavicles, and shoulders. Gas-filled loops of bowel. RAD/Chest PA and Lateral IMPRESSION: Right lower lobe nodular density unchanged. COPD. Ileus. Electronically Signed: Familia Ewing MD at 19:33 EDT ,
[2023-06-19 17:19] LABS: BNP,B-Type NATRIURETIC PEPTIDE 48.4 pg/mL (0-100)
[2023-06-19 17:20] LABS: Troponin-I HS 12 pg/mL (3.0-54.0)
[2023-06-19 17:31] LABS: Differential Comment SCANNED
--- NOTE | 2023-06-19 19:22 | HP.PCM.HOS_ITS ---
HPI - General General Date of Admission: 06/19/23 Date of Service: 06/19/23 Chief Complaint: Shortness of Breath HPI Narrative DOUG DE LA TORRE, is a 63 F who presented to the emergency department at [facility] on 06/19/2023 complaining of shortness of breath. Patient recently had a prolonged admission here from 06/03/2023 through 06/10/2023 for shortness of breath and was treated for many acquired pneumonia and acute exacerbation of COPD. She was discharged home with a prednisone taper and oxygen. Antibiotics were completed. She states she was doing well but over the last 2 to 3 days her respiratory status has worsened. She has been wearing her 4 L however she became more short of breath and has a having more coughing productive of sputum however its been clear. She complains of some chills but no documented fever. She indicates that she feels like she may have a cold coming on. She denies any sick contacts however she is unsure. Vital signs on presentation show a temperature of 97.2, heart rate 70, blood p ressure is 141/72, pulse ox is 94% on 4 L nasal cannula but she desatted to 87% on 4 L and required up titration to 5 to 6 L. CBC shows no leukocytosis however she does have a pretty significant left shift with an 84.6% neutrophilia. Hemoglobin is 20.9 which is stable from previous. Platelet count has dropped and is currently 123,000. Chemistry panel shows mild hyponatremia which is stable 132. Chemistry panel is otherwise unremarkable. Troponin was 12 and BNP was 48.4. EKG showed P pulmonal and an interventricular conduction delay with normal intervals but no ST-T wave changes concerning for acute ischemia. Chest x-ray showed right lower lobe nodularity and COPD. [facility] Medical History COPD (chronic obstructive pulmonary disease) Home Medications albuterol sulfate 90 mcg/actuation aerosol inhaler (ProAir HFA) 2 puff inhalat ion .QID shortness of breath or wheezing #8.5 grams 06/10/23 [Rx Last Taken 06/19/23] prednisone 20 mg tablet 40 mg (2 x 20 mg) PO BREAKFAST #11 tabs 06/10/23 [Rx Last Taken 06/19/23] Allergy/AdvReac Type Severity Reaction Status Date / Time No Known Allergies Allergy Verified 06/19/23 15:30 other (Patient not clear what family history is) Surgical History History of right hip replacement Social History (Updated 06/20/23 @ 00:[address] Adele Becerra DO) housing: house Smoking Status: Former smoker alcohol intake: never substance use type: does not use ROS Constitutional Constitutional: Reports chills, fatigue, malaise and weakness; Denies anorexia, change in weight, fever(s), night sweats or other Eyes Eyes: Denies blurry vision, change in eye color, change in vision, discharge from eye(s), double vision, erythema, eye pain, loss of vision or other ENT HEENT: Reports headache(s); Denies abnormal hearing, dysphagia, ear pain, epistaxis, hearing loss, nasal congestion, nasal discharge, post nasal drip, sinus pressure, sore throat or other Cardiovascular Cardiovascular: Reports dyspnea on exertion; Denies chest pain, claudication, edema, lightheadedness, orthopnea, palpitations, paroxysmal nocturnal dyspnea, rapid heart rate, syncope or other Respiratory/Chest Respiratory/Chest: Reports cough, dyspnea, productive cough, shortness of breath at rest and shortness of breath with exertion; Denies excessive phlegm production, hemoptysis, wheezing or other Gastrointestinal Gastrointestinal: Denies abdominal pain, coffee ground emesis, constipation, di arrhea, dyspepsia, hematemesis, hematochezia, loose stools, melena, nausea, vomiting or other Genitourinary Genitourinary: Denies burning urination, difficulty urinating, dysuria, hematuria, nocturia, urinary frequency, urinary hesitancy, urinary incontinence, urinary urgency or other Musculoskeletal Musculoskeletal: Denies arthralgias, back pain, joint pain, joint stiffness, joint swelling, myalgias, neck pain or other Neurologic Neurologic: Denies abnormal gait, abnormal speech, confusion, disequilibrium, dizziness, focal weakness, headache(s), numbness, paresthesias, seizure-like activity, seizures, syncope, tingling, tremor(s) or other Psychiatric Psychiatric: Denies anxiety, depression, homicidal ideation, suicidal ideation or other Endocrine Endocrinology: Denies change in body appearance, cold intolerance, excessive sweating, heat intolerance, polydipsia, polyuria or other Hematologic/Lymphatic Hematologic/Lymphatic: Denies anemia, easy bleeding, easy bruising, lymphadenopathy or other Allergic/Immunologic Allergic/Immunologic: Denies rhinitis, hives, eczemia, asthma or other Vital Signs Vital Signs Vital Signs: 06/19/23 15:30 06/19/23 16:08 06/19/23 16:10 Temperature 97.2 F L Temperature Source Temporal Pulse Rate 70 107 H Respiratory Rate 16 Respiratory Effort Short of Breath Respiratory Pattern Blood Pressure 141/72 H 135/76 H Blood Pressure Mean 95 95 Pulse Ox 94 18 Oxygen Delivery Method Nasal Cannula Nasal Cannula Oxygen Flow Rate (L/min) 4 4 06/19/23 16:25 06/19/23 18:58 06/19/23 19:19 Temperature 98.9 F Temperature Source Oral Pulse Rate 100 93 Respiratory Rate 18 20 H 18 Respiratory Effort Respiratory Pattern Normal Blood Pressure 137/69 H Blood Pressure Mean 91 Pulse Ox 87 92 Oxygen Delivery Method Nasal Cannula Nasal Cannula Oxygen Flow Rate (L/min) 4 4 Weight Weight: 79.832 kg Body Mass Index (BMI) 28.4 Physical Exam Const alert, oriented x3, no apparent distress and well nourished; Negative for healthy appearing Constitutional Narrative: Overweight, somewhat disheveled, middle-aged, white female, appears older than stated age, sitting up in bed currently on 5 L nasal cannula, appears comfortable and and nontoxic, no signs of respiratory distress currently General Appearance: cooperative HEENT normocephalic, head/scalp atraumatic, hearing grossly normal bilaterally and moist oral mucous membranes HEENT Narrative: Dentition is poor, Mallampati is 2, no thrush, lips and tongue are almost hyperemic Eyes PERRL, EOMs intact bilaterally and conjunctivae normal Eyes Narrative: No scleral icterus Neck no lymphadenopathy and supple Neck Narrative: Trachea midline, no thyroid enlargement Resp normal respiratory effort, no retractions and no use of accessory muscles Resp Narrative: Diffusely diminished with few scattered end expiratory wheezes, air movement is very poor, no current tachypnea or signs of respiratory extremis/distress Auscultation: wheezes; Negative for crackles or rhonchi Cardio regular rate, regular rhythm, S1 normal heart sound, S2 normal heart sound, no murmurs, no rub, no gallops and no clicks GI normal to inspection, nondistended, normoactive bowel sounds, soft to palpation and non-tender Extremity no clubbing, cyanosis or edema Extremity Narrative: Pedal pulses are 2+ Skin no wounds, skin turgor normal, no jaundice, no petechiae and no mottling Skin Narrative: Diffuse rubor hue noted Neuro oriented x3, CN's II-XII intact bilaterally, moves all extremities and no focal motor deficits Speech: speech normal Psych affect normal Psych Narrative: Eye contact is good, patient interacts appropriately Results Lab / Micro Data Attestation: I reviewed the patient's lab results. 06/19/23 16:10 06/19/23 16:10 Labs: Laboratory Results - last 24 hr 06/19/23 16:10: WBC 6.7, RBC 6.83 H, Hgb 20.9 H*, Hct 65.1 H, MCV 95.3, MCH 30.6, MCHC 32.1, RDW Std Deviation 50.7 H, RDW Coeff of Nick 14.8 H, Plt Count 123 L, MPV 9.8, Immature Gran % (Auto) 0.500, Neut % (Auto) 84.6 H, Lymph % (Auto) 8.6 L, [place] % (Auto) 5.6, Eos % (Auto) 0.2, Baso % (Auto) 0.5, Absolute Neuts (auto) 5.7, Absolute Lymphs (auto) 0.57 L, Nucleated RBC % 0, Differential Comment SCANNED, Sodium 132 L, Potassium 4.6, Chloride 101, Carbon Dioxide 26.0, Anion Gap 5, BUN 13, Creatinine 0.70, Estim Creat Clear Calc 76.01, Est GFR (MDRD) Af Amer 108, Est GFR (MDRD) Non-Af 89, BUN/Creatinine Ratio 18.5, Glucose 106, Calcium 8.9, Troponin I High Sens 12, B-Natriuretic Peptide 48.4 Micro: Microbiology 06/19/23 16:10 Nasal Secretion SARS-CoV-2 Antigen (Rapid) - Final Assessment & Plan Assessment/Plan (1) Hypoxia: (2) Elevated hemoglobin: (3) Acute exacerbation of chronic obstructive pulmonary disease: (4) Hyponatremia: (5) Thrombocytopenia: PLAN: Plan Acute on chronic hypoxia due to acute exacerbation of COPD +/- Healthcare acquired pneumonia -Was recently discharged on 4 L nasal cannula which she has been wearing however she dropped her oxygen saturations to 87% on this -Has been running around 94% on her supplemental oxygen at home -We will cover with Zosyn for right now and check MRSA PCR with recent hospitalization -If MRSA PCR is positive we will add vancomycin -Patient has had cough with sputum production so we will obtain sputum culture -Check sputum -Rapid COVID is negative -Check respiratory viral panel -Check procalcitonin -Check strep pneumo and Legionella antigens -Aggressive pulmonary toilet with scheduled and as needed nebs -I-S -Acapella -Mucinex -IV steroids 40 every 8 -Could consider some IV diuretics to help optimize lung function depending on how she progresses -Patient will need pulmonary follow-up after discharge Acute thrombocytopenia -May be related to acute illness versus medications -Continue to trend -Is not dangerously low Hyponatremia -This is chronic and currently at baseline -Continue to monitor Chronic erythrocytosis -Likely related to chronic hypoxia -Will need outpatient heme-onc follow-up after discharge for further evaluation COPD-suspected -Patient's never have PFTs however I do suspect she has pretty significant COPD -CT shows emphysematous changes at the apices bilaterally -Will need outpatient pulmonary follow-up after discharge DVT prophylaxis -Lovenox 40 daily CODE STATUS -Full code Charges/Coding Visit Charges Inpatient E&M: 19664 Init Hosp L3
[2023-06-19 20:12] LABS: Procalcitonin 0.12 ng/mL (0.00-0.09)
[2023-06-19] MEDS: guaiFENesin 1,200 MG Tablet 1200 MG PO (21:51)
[2023-06-19] MEDS: 0.9% Saline Lock 10 ML Syringe IV (23:34)
[2023-06-19 23:50] LABS: M R Staph aureus DNA By PCR Negative (Negative); Probe Check PASS; Specimen Processing Control PASS
[2023-06-20] VITALS (13 sets, daily range): BP systolic 104–160; BP diastolic 63–83; PULSE 85–116; RESP 16–20; TEMP 36.1–37.1; O2SAT 93–95
[2023-06-20] MEDS: Ipratropium/Albuterol Sulfate 3 ML AMPUL.NEB INHALATION ×6 (03:30→23:00)
[2023-06-20] MEDS: 0.9% Saline Lock 10 ML Syringe IV ×2 (05:02→20:40)
[2023-06-20 06:47] LABS: Absolute Lymphocyte Count 0.28 X10^3/uL (0.83-4.51); Absolute Neutrophil Count 5.7 X10^3/uL (2.0-7.7); Basophil# 0.01 X10^3/uL; Basophil% 0.2 % (0-1); Lymphocyte # 0.28 X10^3/ul (0.83-4.51); Lymphocyte % 4.6 % (19-41); Mean Corp Hgb Conc 31.2 g/dL (32-36); Mean Corpuscular Volume 96.1 fL (81-99); Mean Platelet Vol. 9.9 fl (6.2-12.0); Monocyte# 0.12 X10^3/uL; NRBC Flagged by Analyzer 0 % (0-5); Neutrophil # 5.68 X10^3/uL (2.7-7.7); Neutrophil % 92.7 % (47-70); POSITIVE DIFFERENTIAL YES; Platelet Count 133 K/mm3 (150-450); RBC Distribution Width CV 14.3 % (11.6-14.6); RBC Distribution Width SD 50.8 fl (35.1-43.9); Red Blood Count 6.74 M/mm3 (4.2-5.4); White Blood Count 6.1 K/mm3 (4.4-11.0)
[2023-06-20 06:48] LABS: Hematocrit 64.8 % (37-47)
[2023-06-20 06:49] LABS: Differential Indicated SCAN CRITERIA MET
[2023-06-20 06:50] LABS: Hemoglobin 20.2 g/dL (12.0-15.0)
--- NOTE | 2023-06-20 07:01 | PN.HOSP_ITS ---
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 Patient denies any marked URI type symptoms as she is mildly coarse but she states this is chronic. Patient denies fevers, chills, nausea, emesis, abdominal pain, chest pain. Objective Data Objective Data Vital Signs: Vital Signs Temp Pulse Resp BP Pulse Ox O2 Del Method O2 Flow Rate 97 F L 95 18 139/63 H 95 Nasal Cannula 5 06/20/23 05:08 06/20/23 05:08 06/20/23 05:08 06/20/23 05:08 06/20/23 05:08 06/20/23 05:08 06/20/23 05:08 Oxygen Flow Rate (L/min) 5 Oxygen Delivery Method Nasal Cannula Weight: 171 lb 11.2 oz Body Mass Index (BMI) 27.7 Intake & Output: Intake and Output for Last 24 Hours 06/18/23 06/19/23 06/20/23 23:59 23:59 23:59 Intake Total 50 / 50 Balance 50 / 50 Lab / Micro Data 06/20/23 05:58 06/20/23 05:58 Labs: Laboratory Results - last 24 hr 06/19/23 16:10: WBC 6.7, RBC 6.83 H, Hgb 20.9 H*, Hct 65.1 H, MCV 95.3, MCH 30.6, MCHC 32.1, RDW Std Deviation 50.7 H, RDW Coeff of Nick 14.8 H, Plt Count 123 L, MPV 9.8, Immature Gran % (Auto) 0.500, Neut % (Auto) 84.6 H, Lymph % (Auto) 8.6 L, [place] % (Auto) 5.6, Eos % (Auto) 0.2, Baso % (Auto) 0.5, Absolute Neuts (auto) 5.7, Absolute Lymphs (auto) 0.57 L, Nucleated RBC % 0, Differential Comment SCANNED, Diff Path Review February, Sodium 132 L, Potassium 4.6, Chloride 101, Carbon Dioxide 26.0, Anion Gap 5, BUN 13, Creatinine 0.70, Estim Creat Clear Calc 76.01, Est GFR (MDRD) Af Amer 108, Est GFR (MDRD) Non-Af 89, BUN/Creatinine Ratio 18.5, Glucose 106, Calcium 8.9, Troponin I High Sens 12, B- Natriuretic Peptide 48.4 06/19/23 19:20: Procalcitonin 0.12 H 06/19/23 22:25: MRSA (PCR) Negative 06/20/23 05:58: WBC 6.1, RBC 6.74 H, Hgb 20.2 H*, Hct 64.8 H, MCV 96.1, MCH 30.0, MCHC 31.2 L, RDW Std Deviation 50.8 H, RDW Coeff of Nick 14.3, Plt Count 133 L, MPV 9.9, Immature Gran % (Auto) 0.500, Neut % (Auto) 92.7 H, Lymph % (Auto) 4.6 L, [place] % (Auto) 2.0, Eos % (Auto) 0.0, Baso % (Auto) 0.2, Absolute Neuts (auto) 5.7, Absolute Lymphs (auto) 0.28 L, Nucleated RBC % 0 Micro: Microbiology 06/20/23 05:45 Urine, Clean Catch Legionella Antigen - Final 06/19/23 16:10 Nasal Secretion SARS-CoV-2 Antigen (Rapid) - Final Radiography Diagnostic Testing: Radiology Impression Chest X-Ray 06/19/23 17:05 IMPRESSION: Right lower lobe nodular density unchanged. COPD. Ileus. Electronically Signed: Familia Ewing MD at 19:33 EDT , Physical Exam Narrative Physical Examination: General: Awake, alert, oriented x 3 and cooperative, seated upright in MS bed, fatigued appearing but notes feeling improved since initial ED presentation. Skin: Normal color, normal turgor, no icterus, no cyanosis. HEENT: AT/NC, EOMI, PERRLA, MMM. Lungs: Diminished, greater bases, occasional end expiratory wheeze but not marked, no evidence of any distress, no rales or rhonchi. Heart: Regular rate and rhythm; no gallop, rub audible. Abdomen: Soft, overweight, NTTP, ND, mildly hyperactive BS. Extremities: No cyanosis, clubbing, or edema. Neurological: Patient awake, alert, oriented as noted, cognitive function intact; pupils equally reactive to light and accommodation, cranial nerves II- XII grossly normal, moving all 4 extremities, no focal deficits, strength improving, moderately globally decreased secondary to acute presentation. Psychiatric: Affect appears fatigued otherwise normal, no acute evidence of depressive or anxiety feelings. Assessment & Plan Assessment/Plan (1) Acute exacerbation of chronic obstructive pulmonary disease: PLAN: Plan The patient is a 63 y/o F w/ PMHx: COPD with Chronic Hypoxic Respiratory Failure, Chronic Hyponatremia, Chronic Erythrocytosis secondary to chronic hypoxia, recent prolonged admission 06/03/23-06/10/23 secondary to PNA/COPD Exacerbation discharged to home on oxygen/prednisone taper who now re-presents to the [facility] ED on 06/19/23 with onset of increased shortness of breath, progressively worsening the last 2 to 3 days with a productive cough of clear sputum only prompting ED return. #1. Acute on Chronic Hypoxic Respiratory Failure secondary to Acute on Chronic COPD exacerbation with possible HCAP, possible GN/GP organisms: X-ray with right lower lobe nodular density unchanged with COPD type changes as well as evidence of mild ileus. Admitted to [place], maintained on oxygen with wean as tolerated to home oxygen supplementation, continue ATC duonebs, PRN albuterol, IV methylprednisolone, will obtain sputum Cx as well as full respiratory panel, rapid SARS COVID and influenza negative, procalcitonin 0.12, BNP 48.4, urine antigens negative, MRSA screen negative therefore we will continue on IV Zosyn only at this time, continue aggressive pulmonary toileting schedule, I-S, Acapella, Mucinex. #2. Acute thrombocytopenia, suspect related to acute presentation, possibly viral illness: Admission platelet 123, repeat 133, continue treatments as noted, trend CBC. #3. Chronic erythrocytosis: Secondary to chronic hypoxia, admission hemoglobin 20.9, repeat 20.2, this appears to be consistent with prior noted baseline levels as well, trend CBC. #4. Former tobacco use: Encourage continued tobacco cessation. #5. DVT prophylaxis: Lovenox. #6. CODE STATUS: Full Code status. Charges/Coding Visit Charges Inpatient E&M: 69745 Subs Hosp L2
[2023-06-20 07:20] LABS: ALB/GLOB Ratio 0.8 RATIO (0.9-2.4); AST(SGOT) 20 U/L (15-37); Alanine Aminotransfer ALT/SGPT 40 U/L (13-56); Albumin, Serum 3.1 g/dL (3.2-5.0); Alkaline Phosphatase 74 U/L (45-117); Anion Gap 6 (5-15); BUN 15 mg/dL (7-18); BUN/Creat Ratio 18.6 RATIO (10-20); Calcium,Total 8.9 mg/dL (8.5-10.1); Chloride 99 mmol/L (98-107); Creatinine, Serum 0.81 mg/dL (0.55-1.02); EST Glomerular Filtration Rate 76 mL/min (>60); Est Glom Filt Rate - Afr Amer 92 mL/min (>60); Estimated Creatinine Clearance 65.69 ml/min; Globulin 3.7 g/dL (2.2-4.2); Glucose 197 mg/dL (74-106); Magnesium 2.5 mg/dL (1.6-2.6); Phosphorus 4.1 mg/dL (2.5-4.9); Potassium 4.4 mmol/L (3.5-5.1); Protein, Total 6.8 g/dL (6.4-8.2); Sodium Level 136 mmol/L (136-145)
[2023-06-20 07:27] LABS: Differential Comment SCANNED
[2023-06-20] MEDS: Enoxaparin 40 MG/0.4 ML Syringe SC (07:32)
[2023-06-20] MEDS: guaiFENesin 1,200 MG Tablet 1200 MG PO ×2 (07:32→20:36)
--- NOTE | 2023-06-20 13:41 | CASEMGMT ---
GRACIE LICONA Readmission Review: Index: 06/03 thru 05/31/23 Dx: Acute hypoxic respiratory failure 2/2 acute CHF Readmit: 06/19/23 Dx: A/C hypoxic respiratory failure 2/2 COPD exac and/or HCAP Pt with COPD, CHF, chronic hyponatremia, and ch erythrocytosis was admitted on the above noted dates for the noted corresponding dx's. Pt was discharged on index admission with O2 from [employer] at 4l/min continuous and the prescription assistance program was used for pt's medications. This GRACIE LICONA met with pt at bedside. Pt states she has been getting around in her home without difficulty although has noted to be SOB w/exertion. Pt states her home O2 from [employer] was setup and she has been using the concentrator with the extension tubing. Pt states she does not have a PO to monitor her O2 levels and does not have the money to purchase one. A pulse ox monitor was provided to pt from [facility] CM supply. Pt states she has been in contact with [employer] re: [employer]ET[employer] application and states it is pending and should hear something in a month. Pt states she has not heard from [employer] but has their phone number to contact them if she does not hear from them in [facility] next couple of weeks. Pt states she has made appointments with Dr. Brian and Dr. Rojas but has followed up with a PCP/[facility]. Pt states she wishes to stay in the [facility]. List of area PCP's provided to pt. Pt states she will reach out to one on Thursday to schedule a new pt appointment. Discussed cost of any medications at discharge. Reminded pt that she used the Rx assistance program last visit so she will not be able to use it on this visit. Pt states she will use her charge card. Attempted to answer pt's questions re: JEANETTE and referred her to [employer] claims service representative for additional questions. Plan: return home w/son, continued home O2 from [employer], and follow-up with outpt physicians as scheduled and establish with PCP. Dayanna Mijares RN CM
[2023-06-21] VITALS (14 sets, daily range): BP systolic 104–145; BP diastolic 66–86; PULSE 85–110; RESP 16–20; TEMP 36.3–37.1; O2SAT 85–98; BMI 27.8
[2023-06-21] MEDS: Ipratropium/Albuterol Sulfate 3 ML AMPUL.NEB INHALATION ×6 (03:05→23:17)
--- NOTE | 2023-06-21 06:01 | PN.HOSP_ITS ---
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 Patient does state is though she is feeling slightly improved but when she gets up and exerts herself she still feels short of breath and has some mild lightheadedness this morning. Did discuss that her respiratory viral panel did come back and she had in parainfluenza 3 and given no obvious marked WBC elevation however did have mild left shift with procalcitonin mildly elevated 0.12 opted to continue antibiotic therapy in case superimposed bacterial infection to be cautious. She also had mildly elevated K today and discussed treatment plan. Discussed that if patient continues to clinically improve likely discharge to home in AM. Patient denies fevers, chills, nausea, emesis, abdominal pain, chest pain. Objective Data Objective Data Vital Signs: Vital Signs Temp Pulse Resp BP Pulse Ox O2 Del Method O2 Flow Rate 97.7 F L 99 20 H 113/77 94 Nasal Cannula 4 06/21/23 02:38 06/21/23 03:06 06/21/23 03:06 06/21/23 02:38 06/21/23 02:38 06/21/23 03:00 06/21/23 03:00 Oxygen Flow Rate (L/min) 4 Oxygen Delivery Method Nasal Cannula Weight: 171 lb 11.2 oz Body Mass Index (BMI) 27.7 Intake & Output: Intake and Output for Last 24 Hours 06/19/23 06/20/23 06/21/23 23:59 23:59 23:59 Intake Total 1281.5 / 1481.5 250 / 250 Balance 1281.5 / 1481.5 250 / 250 Lab / Micro Data 06/21/23 08:37 06/21/23 08:37 Labs: Laboratory Results - last 24 hr 06/20/23 05:58: WBC 6.1, RBC 6.74 H, Hgb 20.2 H*, Hct 64.8 H, MCV 96.1, MCH 30.0, MCHC 31.2 L, RDW Std Deviation 50.8 H, RDW Coeff of Nick 14.3, Plt Count 133 L, MPV 9.9, Immature Gran % (Auto) 0.500, Neut % (Auto) 92.7 H, Lymph % (Auto) 4.6 L, [place] % (Auto) 2.0, Eos % (Auto) 0.0, Baso % (Auto) 0.2, Absolute Neuts (auto) 5.7, Absolute Lymphs (auto) 0.28 L, Nucleated RBC % 0, Differential Comment SCANNED, Diff Path Review February, Sodium 136, Potassium 4.4, Chloride 99, Carbon Dioxide 31.0, Anion Gap 6, BUN 15, Creatinine 0.81, Estim Creat Clear Calc 65.69, Est GFR (MDRD) Af Amer 92, Est GFR (MDRD) Non-Af 76, BUN/Creatinine Ratio 18.6, Glucose 197 H, Calcium 8.9, Phosphorus 4.1, Magnesium 2.5, Total Bilirubin 0.80, AST 20, ALT 40, Alkaline Phosphatase 74, Total Protein 6.8, Albumin 3.1 L, Globulin 3.7, Albumin/Globulin Ratio 0.8 L, TSH 1.00 Micro: Microbiology 06/20/23 05:45 Urine, Clean Catch Streptococcus pneumoniae Antigen (M - Final 06/20/23 05:45 Urine, Clean Catch Legionella Antigen - Final 06/19/23 16:10 Nasal Secretion SARS-CoV-2 Antigen (Rapid) - Final Physical Exam Narrative Physical Examination: General: Awake, alert, oriented x 3 and cooperative, seated upright in MS bed, fatigued, notes improved but still dyspnea with exertion and mild lightheadedness. Skin: Normal color, normal turgor, no icterus, no cyanosis. HEENT: AT/NC, EOMI, PERRLA, MMM. Lungs: Diminished, greater bases, lessened wheezing from day prior, no rales or rhonchi. Heart: Regular rate and rhythm; no gallop, rub audible. Abdomen: Soft, overweight, NTTP, ND, mildly hyperactive BS. Extremities: No cyanosis, clubbing, or edema. Neurological: Patient awake, alert, oriented as noted, cognitive function intact; pupils equally reactive to light and accommodation, cranial nerves II- XII grossly normal, moving all 4 extremities, no focal deficits, strength improving, moderately globally decreased secondary to acute presentation. Psychiatric: Affect appears fatigued, reports some lightheadedness when up and moving to restroom recently, no acute evidence of depressive or anxiety feelings. Assessment & Plan Assessment/Plan (1) Acute exacerbation of chronic obstructive pulmonary disease: PLAN: Plan The patient is a 63 y/o F w/ PMHx: COPD with Chronic Hypoxic Respiratory Failure, Chronic Hyponatremia, Chronic Erythrocytosis secondary to chronic hypoxia, recent prolonged admission 06/03/23-06/10/23 secondary to PNA/COPD Exacerbation discharged to home on oxygen/prednisone taper who now re-presents to the [facility] ED on 06/19/23 with onset of increased shortness of breath, progressively worsening the last 2 to 3 days with a productive cough of clear sputum only prompting ED return. #1. Acute on Chronic Hypoxic Respiratory Failure secondary to Acute on Chronic COPD exacerbation with possible HCAP, possible GN/GP organisms: X-ray with right lower lobe nodular density unchanged with COPD type changes as well as evidence of mild ileus. Admitted to [place], maintained on oxygen with wean as tolerated to home oxygen supplementation, continue ATC duonebs, PRN albuterol, IV methylprednisolone, sputum Cx requested but has not been able to give, full respiratory panel with parainfluenza 3, rapid SARS COVID and influenza negative, procalcitonin 0.12, BNP 48.4, urine antigens negative, MRSA screen negative therefore we will continue on IV Zosyn at this time to be cautious given prior history, continue aggressive pulmonary toileting schedule, I-S, Acapella, Mucinex. From review of records most recent sputum Cx 06/07/23 prior to current presentation with noted 2+ presumptive C albincans discharged at that time with oral nystatin thus if sputum repeat is obtained with noted recurrence would opt to given diflucan load 200 mg x 1 and continue 100 mg daily. Patient with mlid LH, dizziness and still some dyspnea 06/21/23 but improved, thus would plan likely discharge to home 06/22/23 if ambulatory trial not marked and stable. #2. Acute thrombocytopenia, suspect related to acute presentation, possibly viral illness: Admission platelet 123, repeat 133, continue treatments as noted, 06/21/23 CBC w/ 128. #3. Hyperkalemia: 06/21/23 K 5.7, not hemolyzed, will administer kayexelate, insulin, dextrose, continue aerosols as noted, repeat BMP in the afternoon. #4. Chronic erythrocytosis: Secondary to chronic hypoxia, admission hemoglobin 20.9, repeat 20.2, this appears to be consistent with prior noted baseline levels as well, 06/21/23 CBC w/ .1. #5. Former tobacco use: Encourage continued tobacco cessation. #6. DVT prophylaxis: Lovenox. #7. CODE STATUS: Full Code status. Charges/Coding Visit Charges Inpatient E&M: 33234 Subs Hosp L2
[2023-06-21] MEDS: Enoxaparin 40 MG/0.4 ML Syringe SC (07:44)
[2023-06-21] MEDS: guaiFENesin 1,200 MG Tablet 1200 MG PO ×2 (07:44→22:24)
[2023-06-21 08:49] LABS: Absolute Lymphocyte Count 0.28 X10^3/uL (0.83-4.51); Absolute Neutrophil Count 9.9 X10^3/uL (2.0-7.7); Basophil# 0.02 X10^3/uL; Basophil% 0.2 % (0-1); Lymphocyte # 0.28 X10^3/ul (0.83-4.51); Lymphocyte % 2.7 % (19-41); Mean Corp Hgb Conc 31.3 g/dL (32-36); Mean Corpuscular Hgb 30.2 pg (27.0-32.0); Mean Corpuscular Volume 96.4 fL (81-99); Mean Platelet Vol. 8.9 fl (6.2-12.0); Monocyte# 0.22 X10^3/uL; Monocyte% 2.1 % (0-10); NRBC Flagged by Analyzer 0 % (0-5); Neutrophil # 9.86 X10^3/uL (2.7-7.7); Neutrophil % 94.6 % (47-70); POSITIVE DIFFERENTIAL YES; Platelet Count 128 K/mm3 (150-450); RBC Distribution Width CV 14.1 % (11.6-14.6); RBC Distribution Width SD 50.9 fl (35.1-43.9); Red Blood Count 6.33 M/mm3 (4.2-5.4); White Blood Count 10.4 K/mm3 (4.4-11.0)
[2023-06-21 08:53] LABS: Differential Indicated SCAN CRITERIA MET; Hemoglobin 19.1 g/dL (12.0-15.0)
[2023-06-21 09:06] LABS: AST(SGOT) 16 U/L (15-37); Alanine Aminotransfer ALT/SGPT 36 U/L (13-56); Albumin, Serum 3.2 g/dL (3.2-5.0); Alkaline Phosphatase 64 U/L (45-117); Anion Gap 4 (5-15); BUN 10 mg/dL (7-18); BUN/Creat Ratio 13.8 RATIO (10-20); Calcium,Total 9.5 mg/dL (8.5-10.1); Chloride 102 mmol/L (98-107); Creatinine, Serum 0.73 mg/dL (0.55-1.02); EST Glomerular Filtration Rate 86 mL/min (>60); Est Glom Filt Rate - Afr Amer 104 mL/min (>60); Estimated Creatinine Clearance 72.88 ml/min; Globulin 3.1 g/dL (2.2-4.2); Glucose 142 mg/dL (74-106); Potassium 5.7 mmol/L (3.5-5.1); Protein, Total 6.3 g/dL (6.4-8.2); Sodium Level 140 mmol/L (136-145)
[2023-06-21 09:26] LABS: Differential Comment SCANNED
[2023-06-21] MEDS: Sodium Polystyrene Sulfonate 15 GM/60 ML UDC PO (10:58)
[2023-06-21] MEDS: Dextrose 50%-Water 25 GM/50 ML DISP.SYRIN IV (11:31)
[2023-06-21] MEDS: Insulin Lispro 10 UNIT in Syringe 0 ML 6 UNIT IV (11:31)
[2023-06-21 14:12] LABS: Anion Gap 3 (5-15); BUN 10 mg/dL (7-18); BUN/Creat Ratio 14.2 RATIO (10-20); Calcium,Total 9.5 mg/dL (8.5-10.1); Chloride 101 mmol/L (98-107); Creatinine, Serum 0.71 mg/dL (0.55-1.02); EST Glomerular Filtration Rate 89 mL/min (>60); Est Glom Filt Rate - Afr Amer 107 mL/min (>60); Estimated Creatinine Clearance 74.94 ml/min; Glucose 97 mg/dL (74-106); Potassium 4.4 mmol/L (3.5-5.1); Sodium Level 139 mmol/L (136-145)
[2023-06-21] MEDS: 0.9% Saline Lock 10 ML Syringe IV (22:24)
[2023-06-22] VITALS (15 sets, daily range): BP systolic 102–142; BP diastolic 62–87; PULSE 91–112; RESP 16–24; TEMP 36.3–37.1; O2SAT 75–95; BMI 28.3
[2023-06-22] MEDS: Ipratropium/Albuterol Sulfate 3 ML AMPUL.NEB INHALATION ×6 (02:58→23:20)
[2023-06-22 06:27] LABS: Absolute Lymphocyte Count 0.44 X10^3/uL (0.83-4.51); Absolute Neutrophil Count 8.5 X10^3/uL (2.0-7.7); Basophil# 0.03 X10^3/uL; Basophil% 0.3 % (0-1); Hemoglobin 18.9 g/dL (12.0-15.0); Lymphocyte # 0.44 X10^3/ul (0.83-4.51); Lymphocyte % 4.8 % (19-41); Mean Corp Hgb Conc 30.9 g/dL (32-36); Mean Corpuscular Hgb 30.1 pg (27.0-32.0); Mean Corpuscular Volume 97.3 fL (81-99); Mean Platelet Vol. 9.1 fl (6.2-12.0); Monocyte# 0.15 X10^3/uL; Monocyte% 1.6 % (0-10); NRBC Flagged by Analyzer 0 % (0-5); Neutrophil # 8.48 X10^3/uL (2.7-7.7); Neutrophil % 92.8 % (47-70); POSITIVE DIFFERENTIAL YES; Platelet Count 152 K/mm3 (150-450); RBC Distribution Width SD 51.6 fl (35.1-43.9); Red Blood Count 6.28 M/mm3 (4.2-5.4); White Blood Count 9.2 K/mm3 (4.4-11.0)
[2023-06-22] MEDS: 0.9% Saline Lock 10 ML Syringe IV (06:27)
[2023-06-22 06:59] LABS: Hematocrit 61.1 % (37-47)
[2023-06-22 07:00] LABS: Differential Indicated SCAN CRITERIA MET
[2023-06-22 07:07] LABS: AST(SGOT) 17 U/L (15-37); Alanine Aminotransfer ALT/SGPT 36 U/L (13-56); Alkaline Phosphatase 67 U/L (45-117); Anion Gap 2 (5-15); BUN 9 mg/dL (7-18); BUN/Creat Ratio 14.1 RATIO (10-20); Calcium,Total 9.1 mg/dL (8.5-10.1); Chloride 102 mmol/L (98-107); Creatinine, Serum 0.64 mg/dL (0.55-1.02); EST Glomerular Filtration Rate 99 mL/min (>60); Est Glom Filt Rate - Afr Amer 120 mL/min (>60); Estimated Creatinine Clearance 83.13 ml/min; Globulin 3.1 g/dL (2.2-4.2); Glucose 125 mg/dL (74-106); Potassium 4.7 mmol/L (3.5-5.1); Protein, Total 6.1 g/dL (6.4-8.2); Sodium Level 139 mmol/L (136-145)
[2023-06-22] MEDS: guaiFENesin 1,200 MG Tablet 1200 MG PO ×2 (08:56→22:38)
[2023-06-22] MEDS: Enoxaparin 40 MG/0.4 ML Syringe SC (08:56)
--- NOTE | 2023-06-22 19:20 | PN.HOSP_ITS ---
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 Patient does not complain of any shortness of breath at rest. Patient states she recently quit smoking entirely at home. Objective Data Objective Data Vital Signs: Vital Signs Temp Pulse Resp BP Pulse Ox O2 Del Method O2 Flow Rate 98.3 F 112 H 20 H 102/62 95 Nasal Cannula 4 06/22/23 14:56 06/22/23 14:56 06/22/23 14:56 06/22/23 14:56 06/22/23 14:56 06/22/23 15:00 06/22/23 15:00 Oxygen Flow Rate (L/min) [ 2 AMBULATING with Oxygen #1] Oxygen Flow Rate (L/min) 4 Oxygen Delivery Method Nasal Cannula Weight: 80 kg Body Mass Index (BMI) 28.3 Intake & Output: Intake and Output for Last 24 Hours 06/20/23 06/21/23 06/22/23 23:59 23:59 23:59 Intake Total 1281.5 / 1481.5 2168.5 / 2168.5 750 / 750 Balance 1281.5 / 1481.5 2168.5 / 2168.5 750 / 750 Lab / Micro Data 06/22/23 06:00 06/22/23 06:00 Labs: Laboratory Results - last 24 hr 06/22/23 06:00: WBC 9.2, RBC 6.28 H, Hgb 18.9 H*, Hct 61.1 H, MCV 97.3, MCH 30.1, MCHC 30.9 L, RDW Std Deviation 51.6 H, RDW Coeff of Nick 14.0, Plt Count 152, MPV 9.1, Immature Gran % (Auto) 0.500, Neut % (Auto) 92.8 H, Lymph % (Auto) 4.8 L, Archuleta % (Auto) 1.6, Eos % (Auto) 0.0, Baso % (Auto) 0.3, Absolute Neuts (auto) 8.5 H, Absolute Lymphs (auto) 0.44 L, Nucleated RBC % 0, Diff Path Review May foll, Sodium 139, Potassium 4.7, Chloride 102, Carbon Dioxide 35.0 H, Anion Gap 2 L, BUN 9, Creatinine 0.64, Estim Creat Clear Calc 83.13, Est GFR (MDRD) Af Amer 120, Est GFR (MDRD) Non-Af 99, BUN/Creatinine Ratio 14.1, Glucose 125 H, Calcium 9.1, Total Bilirubin 0.40, AST 17, ALT 36, Alkaline Phosphatase 67, Total Protein 6.1 L, Albumin 3.0 L, Globulin 3.1, Albumin/Globulin Ratio 1.0 Micro: Microbiology 06/21/23 07:43 Mucosa - Nose Respiratory Panel (PCR) - Final Parainfluenza 3 06/20/23 05:45 Urine, Clean Catch Streptococcus pneumoniae Antigen (M - Final 06/20/23 05:45 Urine, Clean Catch Legionella Antigen - Final 06/19/23 16:10 Nasal Secretion SARS-CoV-2 Antigen (Rapid) - Final Physical Exam Const alert, oriented x3 and no apparent distress Constitutional Narrative: Patient appears older than her stated age General Appearance: cooperative, well kempt and well developed Orientation / Consciousness: awake, oriented to person, oriented to place and or iented to time HEENT normocephalic, head/scalp atraumatic and moist oral mucous membranes Eyes PERRL, EOMs intact bilaterally and conjunctivae normal Neck supple, no JVD, thyroid normal and no carotid bruits General: trachea midline Resp normal respiratory effort, no retractions and no use of accessory muscles Resp Narrative: Breath sounds are distant bilaterally Auscultation: Negative for rales, rhonchi or wheezes Cardio regular rate, regular rhythm, S1 normal heart sound, S2 normal heart sound, no murmurs, no rub and no gallops GI normal to inspection, nondistended, normoactive bowel sounds, soft to palpation, non-tender and non-distended Extremity no clubbing, cyanosis or edema Skin no rashes or lesions noted General Skin Exam: no breakdown Neuro oriented x3, CN's II-XII intact bilaterally, moves all extremities, no focal motor deficits and no sensory deficits noted Sensorium / Orientation: awake, alert, oriented to person, oriented to place and oriented to time Speech: speech normal Psych affect normal Assessment & Plan Assessment/Plan (1) Acute exacerbation of chronic obstructive pulmonary disease: PLAN: Plan 1. Parainfluenza 3 tracheobronchitis-continue IV corticosteroids, I will discontinue her antibiotic #2 exacerbation of chronic obstructive pulmonary disease-continue aerosol treatments and IV corticosteroids #3 chronic hypoxic respiratory failure-patient's O2 will be weaned if possible, monitor, evaluate, assess, and treat Total clinical time spent by myself addressing the patient's medical issues, reviewing all of her data, and collaborating with patient's care team: 35- minutes Charges/Coding Visit Charges Inpatient E&M: 28695 Subs Hosp L2
[2023-06-23] VITALS (14 sets, daily range): BP systolic 123–144; BP diastolic 64–77; PULSE 97–111; RESP 18–24; TEMP 36.3–37.1; O2SAT 86–98; BMI 28.1
[2023-06-23] MEDS: Ipratropium/Albuterol Sulfate 3 ML AMPUL.NEB INHALATION ×6 (03:34→23:18)
[2023-06-23] MEDS: guaiFENesin 1,200 MG Tablet 1200 MG PO ×2 (09:33→20:26)
[2023-06-23] MEDS: Enoxaparin 40 MG/0.4 ML Syringe SC (09:33)
[2023-06-23 09:52] LABS: Pathologist Review Reviewed
[2023-06-23 09:54] LABS: Pathologist Review Reviewed
[2023-06-23 12:21] LABS: Pathologist Review Reviewed
[2023-06-23 12:29] LABS: Pathologist Review Reviewed
[2023-06-23] MEDS: 0.9% Saline Lock 10 ML Syringe IV ×2 (14:59→20:26)
--- NOTE | 2023-06-23 16:31 | CASEMGMT ---
Pt has a 5L concentrator at home. Hospitalist updated. Pt nurse aware pt needs tested on 4L which is her home oxygen rx.
--- NOTE | 2023-06-23 18:26 | PCM.PN.HOSP ---
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 Objective Data Objective Data Vital Signs: Vital Signs Temp Pulse Resp BP Pulse Ox O2 Del Method O2 Flow Rate 98.7 F 100 18 144/72 H 90 Nasal Cannula 5 06/23/23 09:38 06/23/23 14:47 06/23/23 14:47 06/23/23 09:38 06/23/23 15:16 06/23/23 10:00 06/23/23 15:16 Oxygen Flow Rate (L/min) [ 5 AMBULATING with Oxygen #1] Oxygen Flow Rate (L/min) 5 Oxygen Delivery Method Nasal Cannula Weight: 79.4 kg Body Mass Index (BMI) 28.1 Intake & Output: Intake and Output for Last 24 Hours 06/21/23 06/22/23 06/23/23 23:59 23:59 23:59 Intake Total 2168.5 / 2168.5 1450 / 1650 1200 / 1200 Balance 2168.5 / 2168.5 1450 / 1650 1200 / 1200 Lab / Micro Data 06/22/23 06:00 06/22/23 06:00 Labs: Laboratory Results - last 24 hr 06/19/23 16:10: Diff Path Review Reviewed 06/20/23 05:58: Diff Path Review Reviewed 06/21/23 08:37: Diff Path Review Reviewed 06/22/23 06:00: Diff Path Review Reviewed Micro: Microbiology 06/21/23 07:43 Mucosa - Nose Respiratory Panel (PCR) - Final Parainfluenza 3 06/20/23 05:45 Urine, Clean Catch Streptococcus pneumoniae Antigen (M - Final 06/20/23 05:45 Urine, Clean Catch Legionella Antigen - Final 06/19/23 16:10 Nasal Secretion SARS-CoV-2 Antigen (Rapid) - Final Physical Exam Narrative alert, oriented x3 and no apparent distress Constitutional Narrative: Patient appears older than her stated age General Appearance: cooperative, well kempt and well developed Orientation / Consciousness: awake, oriented to person, oriented to place and oriented to time HEENT normocephalic, head/scalp atraumatic and moist oral mucous membranes Eyes PERRL, EOMs intact bilaterally and conjunctivae normal Neck supple, no JVD, thyroid normal and no carotid bruits General: trachea midline Resp normal respiratory effort, no retractions and no use of accessory muscles Resp Narrative: High-pitched expiratory wheezes are scattered bilaterally Cardio regular rate, regular rhythm, S1 normal heart sound, S2 normal heart sound, no murmurs, no rub and no gallops GI normal to inspection, nondistended, normoactive bowel sounds, soft to palpation, non-tender and non-distended Extremity no clubbing, cyanosis or edema Skin no rashes or lesions noted General Skin Exam: no breakdown Neuro oriented x3, CN's II-XII intact bilaterally, moves all extremities, no focal motor deficits and no sensory deficits noted Sensorium / Orientation: awake, alert, oriented to person, oriented to place and oriented to time Speech: speech normal Psych affect normal Assessment & Plan Assessment/Plan (1) Hypoxia: (2) Acute exacerbation of chronic obstructive pulmonary disease: PLAN: Plan 1. Parainfluenza 3 tracheobronchitis-continue IV corticosteroids #2 exacerbation of chronic obstructive pulmonary disease-continue aerosol treatments and IV corticosteroids #3 chronic hypoxic respiratory failure-patient's O2 will be weaned if possible, monitor, evaluate, assess, and treat Total clinical time spent by myself addressing the patient's medical issues, reviewing all of her data, and collaborating with patient's care team: 25-minutes Charges/Coding Visit Charges Inpatient E&M: 58778 [facility] Hosp L1
[2023-06-24] VITALS (9 sets, daily range): BP systolic 129–150; BP diastolic 66–88; PULSE 93–116; RESP 16–24; TEMP 36.5–36.8; O2SAT 87–97; BMI 28.1
[2023-06-24] MEDS: 0.9% Saline Lock 10 ML Syringe IV ×3 (05:14→14:12)
[2023-06-24] MEDS: Ipratropium/Albuterol Sulfate 3 ML AMPUL.NEB INHALATION ×4 (05:34→19:24)
--- NOTE | 2023-06-24 10:20 | NURSING ---
o2 trial completed. notable increase RR to 24-26bpm upper 120's with ambulation. increased to 6lnc with ambulation then back to 5lnc after recovered. pt also noted anxiety r/t attempting to set up appointments with new physicians. discussed case mgmt assisting with home o2. refused all needs at present.
[2023-06-24] MEDS: guaiFENesin 1,200 MG Tablet 1200 MG PO (10:23)
[2023-06-24] MEDS: Enoxaparin 40 MG/0.4 ML Syringe SC (10:23)
--- NOTE | 2023-06-24 12:59 | CASEMGMT ---
GRACIE CM into pt room, pt sitting up in bed. Made pt aware that she will need 5 liters of oxygen at rest and 6 liters with exertion. She is aware that [facility] will switch her concentrator out today and to call them when she gets home. Pt also has a nebulizer ordered. Pt is aware that this will be on her dc instructions as well. Pt asks for RN LIVAN to set up a PCP appt for her. She chose but states she is open to any [facility] physician. She states she can go any time of the day. Pt is aware this appt will be on her dc instructions as well. Unable to set pt up with [facility] or services d/t no PCP yet. Pt denies further homegoing needs. TC to 's office, he is not accepting new pts. TC to Dr. Silva's office, appt made for Aug 04 at 9am. Placed on dc instructions. Referral for increase in oxygen rx sent to [facility] via [facility] and then updated with nebulizer and faxed to [facility] and email to Araceli.
--- NOTE | 2023-06-24 13:15 | NURSING ---
respiratory called for spacer for pt at discharge as Dr. Mcgee requested
--- NOTE | 2023-06-24 15:34 | DCINST_ITS ---
Discharge Instructions Diet Discharge Diet: No restrictions Activity Discharge Activity: Return to Normal Activity Weight Bearing Status: Full weight bearing Follow Up Care Test Results: Test results from this visit will be discussed in further detail at your follow- up appointment, if applicable. Discharge Plan Admission Admit Date/Time: 06/19/23 19:13 Primary Reason for Your Visit: Parainfluenza virus infection, exacerbation of COPD Attending Provider: Harley Mcgee Primary Care Provider: Care Physician,No Primary Consulting Providers: Adele Becerra; Sandra Garduno Instructions Additional Instructions / Restrictions: Use oxygen continuously at 5 L/min via nasal cannula at rest, increased oxygen to 6 L/min via nasal cannula during activity Discharge Orders/Prescriptions Prescriptions: New prednisone 20 mg tablet 20 mg PO BID Qty: 10 0RF Rx Instructions: 1 twice a day for 2 days, then 1-1/2 tabs a day for 2 days, then 1 tablet a day for 3 days, then discontinue Continued albuterol sulfate [ProAir HFA] 90 mcg/actuation HFA aerosol inhaler 2 puff inhalation .QID Qty: 8.5 0RF Discontinued prednisone 20 mg Tablet 40 mg PO BREAKFAST Qty: 11 0RF Rx Instructions: two daily for 3 days, then one a day for 3 days, then 1/2 daily for 4 days, then stop Referrals / Follow Up: Care Physician,No Primary [Primary Care Provider] - 08/04/23 9:00 am (New patient appointment made with on August 04 at 9am. Her address is [address] [place] [address]) Disposition Disposition (needs filled in before D/C Order can be placed): Home, Self Care
--- NOTE | 2023-06-24 15:57 | DS.PCM_ITS ---
Providers Date of Admission: 06/19/23 Date of Discharge: 06/24/23 Primary Care Physician: Fang Primary Care Phys Reason For Visit: ACUTE EXACERBATION OF COPD Diagnosis Discharge Diagnosis (1) Hypoxia: Status: Acute Code(s): R09.02 - Hypoxemia (2) Acute exacerbation of chronic obstructive pulmonary disease: Status: Chronic Code(s): J44.1 - Chronic obstructive pulmonary disease with (acute) exacerbation Plan 1. Parainfluenza 3 tracheobronchitis-continue IV corticosteroids #2 exacerbation of chronic obstructive pulmonary disease-continue aerosol treatments and IV corticosteroids #3 chronic hypoxic respiratory failure-patient's O2 will be weaned if possible, monitor, evaluate, assess, and treat Total clinical time spent by myself addressing the patient's medical issues, reviewing all of her data, and collaborating with patient's care team: 25- minutes Medications at Discharge Home Medications albuterol sulfate 90 mcg/actuation aerosol inhaler (ProAir HFA) 2 puff inhalation .QID shortness of breath or wheezing #8.5 grams 06/10/23 prednisone 20 mg tablet 20 mg PO BID #10 tabs 06/24/23 Hospital Course Operations None Procedures None Summary of Care Provided Minutes Spent on Discharge: 31 Hospital Course: This 63-year-old white female who is on chronic oxygen at home was seen in the emergency room with complaints of increasing shortness of breath over the past 3 to 4 days. Patient is on nasal cannula oxygen at home at 4 L. Work-up in the emergency room included a chest x-ray which showed a right lower lobe nodular density that has been unchanged from previous chest x-rays, COPD, and an ileus. CBC revealed a white blood cell count of 6.7 hemoglobin was 20.9 chemistry profile was unremarkable. Patient was admitted to [place] [facility] [id number] for exacerbation of COPD and possible health care acquired pneumonia, respiratory panel however returned positive for parainfluenza 3, her antibiotics were stopped and her IV corticosteroids were continued and her oxygen was adjusted. Patient required a higher flow oxygen than her baseline at the time of discharge-a new oxygen concentrator had to be set up for her at home. Patient required 6 L/min via nasal cannula on ambulation and 5 L at rest to maintain her pulse ox. She was expected to wear her oxygen at home and outside the home during activities of daily living. On 06/24/23, patient was seen and examined: On examination she appeared in good health and spirits, she does not appear to be in any distress. Vital signs as d ocumented. Skin warm and dry and without overt rashes. Neck without JVD, thyroid appears normal, trachea is midline, neck is supple. Lungs-there were diffuse scattered expiratory wheezes over the lower lung hernández bilaterally on auscultation. Heart exam notable for regular rhythm, normal sounds and absence of murmurs, rubs or gallops. Abdomen unremarkable and without evidence of organomegaly, masses, or abdominal aortic enlargement, bowel sounds are present in all 4 quadrants, no abdominal tenderness was noted. Extremities nonedematous, no cyanosis was noted, no clubbing was noted. Neuro: Cranial nerves II through XII are grossly intact, no focal motor deficits were noted, sensation to light touch and pinprick is intact, motor exam 5/5 throughout. Psych: Patient is alert and oriented x3, she does not appear anxious or depressed, she does not appear agitated. On 06/24/2023, patient was seen and examined and felt to be stable for discharge home. Weight / BMI Weight Weight: 79.4 kg Body Mass Index (BMI) 28.1 ABG / Lab / Microbiology Data 06/22/23 06:00 06/22/23 06:00 Microbiology: Microbiology 06/21/23 07:43 Mucosa - Nose Respiratory Panel (PCR) - Final Parainfluenza 3 06/20/23 05:45 Urine, Clean Catch Streptococcus pneumoniae Antigen (M - Final 06/20/23 05:45 Urine, Clean Catch Legionella Antigen - Final 06/19/23 16:10 Nasal Secretion SARS-CoV-2 Antigen (Rapid) - Final D/C Instructions Discharge Diet: No restrictions Weight Bearing Status: Full weight bearing Meaningful Use Info Meaningful Use Diagnoses (Choose all that apply): None applicable Discharge Plan Admission Admit Date/Time: 06/19/23 19:13 Primary Reason for Your Visit: Parainfluenza virus infection, exacerbation of COPD Attending Provider: Harley Mcgee Primary Care Provider: Care Physician,No Primary Consulting Providers: Adele Becerra; Sandra Garduno Instructions Additional Instructions / Restrictions: Use oxygen continuously at 5 L/min via nasal cannula at rest, increased oxygen to 6 L/min via nasal cannula during activity Discharge Orders/Prescriptions Prescriptions: New prednisone 20 mg tablet 20 mg PO BID Qty: 10 0RF Rx Instructions: 1 twice a day for 2 days, then 1-1/2 tabs a day for 2 days, then 1 tablet a day for 3 days, then discontinue Continued albuterol sulfate [ProAir HFA] 90 mcg/actuation HFA aerosol inhaler 2 puff inhalation .QID Qty: 8.5 0RF Discontinued prednisone 20 mg Tablet 40 mg PO BREAKFAST Qty: 11 0RF Rx Instructions: two daily for 3 days, then one a day for 3 days, then 1/2 daily for 4 days, then stop Referrals / Follow Up: Care Physician,No Primary [Primary Care Provider] - 08/04/23 9:00 am (New patient appointment made with on August 04 at 9am. Her address is [address] [place] [address]) Disposition Disposition (needs filled in before D/C Order can be placed): Home, Self Care Charges/Coding Visit Charges Inpatient E&M: [id number] Disch Hosp >30min
--- NOTE | 2023-06-24 17:08 | NURSING ---
call placed to mary alice as per patient mary alice talked with her son whom is at her house currently and they told him they would deliver her new concentrator to accomidate her 6L tomorrow. aware oncall delivery is to return call to unit. stenographer secretary and charge nurse updated.
--- NOTE | 2023-06-24 17:23 | NURSING ---
discussed script for prednisone with patient requesting retail rx call her with [facility]. retail rx informed.
--- NOTE | 2023-06-24 18:13 | NURSING ---
pt informed charge nurse talked with Anirudh from [facility] and he will be at patient's house in 15-20minutes with her new concentrator. pt calling son whom is at the house. pt given medication delivered from retail pharmacy. reviewed discharge instructions again and denies all further needs. pt aware to let staff know when pt's son arrives with portable o2.
--- NOTE | 2023-06-24 19:22 | NURSING ---
nightshift charge nurse aware pt still awaiting ride.
== END 2023-06-24 20:10 | disposition home or self-care (01) | DRG 191 ==
LOC: ED 19:04 → MS3 19:42
PROVIDERS: Family Medicine; Nurse Practitioner; Admitting Provider Internal Medicine; Emergency Provider Emergency Medicine; Visit Provider Internal Medicine
DX: J44.1 Chronic obstructive pulmonary disease with (acute) exacerbation (principal); J96.11 Chronic respiratory failure with hypoxia; E87.1 Hypo-osmolality and hyponatremia; D69.6 Thrombocytopenia, unspecified; J10.1 Influenza due to other identified influenza virus with other respiratory manifestations; E87.5 Hyperkalemia; D75.1 Secondary polycythemia; Z99.81 Dependence on supplemental oxygen; E66.3 Overweight; Z68.28 Body mass index [BMI] 28.0-28.9, adult; Z79.51 Long term (current) use of inhaled steroids; Z79.52 Long term (current) use of systemic steroids; Z79.899 Other long term (current) drug therapy; Z87.891 Personal history of nicotine dependence
CPT/HCPCS: 36415; 71046; 80048; 80053; 83735; 83880; 84100; 84145; 84443; 84484; 85025; 87449; 87633; 87641; 87811; 93005; 94640; 94664; 94667; 94668; 94760; 94762; 99252; 99285; 99406; J7040; J7050; A4216; G0463

== ENCOUNTER → 2023-07-06 | Outpatient (CLI) | payer MEDICAID, SELFPAY ==
--- NOTE | 2023-07-06 12:29 | BI_ITS ---
MAMMOGRAPHY - BILATERAL SCREENING REASON FOR EXAM: Female, 63 years old. Routine annual screening examination. PERTINENT HISTORY: Sister with breast cancer. TECHNIQUE: Digital bilateral breast lobo (3D mammographic acquisition) in the CC and MLO projections. 2-D mediolateral oblique (MLO) and craniocaudad (CC) views of both breasts were obtained. CAD: Full Field Digital Mammography with Computer Added Detection was performed. COMPARISON: Comparison is made with prior study dated April 29, 2016. FINDINGS: Breast Composition: The breasts are almost entirely fatty. There are no dominant masses or suspicious calcifications. Stable small benign-appearing bilateral axillary lymph nodes. No other significant abnormalities are identified. There has been no significant change since the prior study. BI/SCRN MAMM (CAD)W/LOBO BILAT IMPRESSION: Stable bilateral screening mammogram. Yearly follow-up mammogram recommended. (A) ASSESSMENT CATEGORY: BIRADS Category 2: Benign. A letter regarding these results will be sent to the patient by the facility within 30 days. Approximately 10% of breast cancers are not detected by mammography. A normal mammogram should not delay biopsy of a clinically suspicious abnormality. [id number] Electronically Signed: Joaquim Montenegro MD at 13:56 EDT ,
== END | disposition home or self-care (01) ==
PROVIDERS: Referring Provider Internal Medicine Hematology & Oncology; Visit Provider Internal Medicine Hematology & Oncology
DX: Z12.31 Encounter for screening mammogram for malignant neoplasm of breast (principal)
CPT/HCPCS: 77063; 77067

== ENCOUNTER → 2023-07-27 | Outpatient (CLI) | payer MEDICAID, SELFPAY ==
--- NOTE | 2023-07-28 07:48 | PFT ---
INTRODUCTION: The patient is a 63-year-old female who presents for pulmonary function studies secondary to a diagnosis of COPD. Respiratory therapy reported good patient effort. Bronchodilators were used during testing. INTERPRETATION: Forced expiration spirometry demonstrates the presence of a moderately severe large airways obstructive ventilatory defect. There was no significant response to aerosolized bronchodilators. Spirograms are of good quality but do not plateau indicating slow emptying of the lungs. Body plethysmography was performed and revealed a decreased TLC to 4.2 L, 80% of predicted, indicative of a mild restrictive ventilatory impairment. Diffusing capacity by single breath CO was reduced to 45% of predicted. IMPRESSION: Irreversible moderately severe mixed ventilatory defect with symmetric reduction in diffusion capacity.
== END | disposition home or self-care (01) ==
PROVIDERS: Referring Provider Nurse Practitioner Acute Care; Visit Provider Nurse Practitioner Acute Care
DX: J44.9 Chronic obstructive pulmonary disease, unspecified (principal)
CPT/HCPCS: 94060; 94726; 94729

== ENCOUNTER → 2023-08-04 | Outpatient (CLI) | payer MEDICAID, SELFPAY ==
[2023-08-04 12:59] LABS: Cholesterol 209 mg/dL (200); High Density Lipoprotein 56 mg/dL; Triglycerides 120 mg/dL; Very Low Density Lipoprotein 24 mg/dL (5-40)
== END | disposition home or self-care (01) ==
PROVIDERS: Visit Provider Internal Medicine
DX: Z13.6 Encounter for screening for cardiovascular disorders (principal)
CPT/HCPCS: 36415; 80061

== ENCOUNTER → 2023-08-05 | Outpatient (CLI) | payer MEDICAID, SELFPAY ==
[2023-08-05 13:45] VITALS: PULSE 134; PULSE 135; PULSE 142; PULSE 143; PULSE 149; PULSE 150; PULSE 153; O2SAT 86; O2SAT 89; O2SAT 91; O2SAT 92; O2SAT 93; O2SAT 94; O2SAT 95
--- NOTE | 2023-08-05 13:48 | CPS ---
Patient wears 4 lpm at home continuously and states that she was told to wear 5 lpm when walking. Patient states that she would like to wean her oxygen down and sometimes only wears 2.5-4 lpm at rest and also takes breaks from it when she is eating. She has been wearing 4 lpm when she walks; she checks her pulse ox and reports saturations greater than 89%. Today she came in on 2.5 lpm with an SpO2 of 94% even after walking about 75 ft from waiting room to testing room. Patient removed oxygen and after speaking to her for several minutes she had fluctuating saturations between 87-93% on room air. Due to SpO2 of 87 and 88 several times we started testing on 2.5 lpm O2. Patient was able to walk about 250 ft in 2 minutes before SpO2 dropped to 86% on 2.5 lpm. Increased O2 to 4 lpm at that time and patient was able to walk the remaining 4 minutes of testing with an SpO2 greater than 90%.
--- NOTE | 2023-08-06 07:49 | WT_ITS ---
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 Assistive device used: None Pre-test Oxygen Flow Rate (L/min) 2.5 Oxygen Delivery Method Nasal Cannula Pulse Ox 94 Pulse Rate (60-100) 135 H Dyspnea Shen Scale (0-10) 0 Exertion Shen Scale (6-20) 6 1st minute Oxygen Flow Rate (L/min) 2.5 Oxygen Delivery Method Nasal Cannula Pulse Ox 89 Pulse Rate (60-100) 142 H 2nd minute Oxygen Flow Rate (L/min) 2.5 Oxygen Delivery Method Nasal Cannula Pulse Ox 86 Pulse Rate (60-100) 149 H 3rd minute Oxygen Flow Rate (L/min) 4 Oxygen Delivery Method Nasal Cannula Pulse Ox 93 Pulse Rate (60-100) 143 H 4th minute Oxygen Flow Rate (L/min) 4 Oxygen Delivery Method Nasal Cannula Pulse Ox 92 Pulse Rate (60-100) 150 H 5th minute Oxygen Flow Rate (L/min) 4 Oxygen Delivery Method Nasal Cannula Pulse Ox 92 Pulse Rate (60-100) 150 H 6th minute Oxygen Flow Rate (L/min) 4 Oxygen Delivery Method Nasal Cannula Pulse Ox 91 Pulse Rate (60-100) 153 H Dyspnea Shen Scale (0-10) 3 Exertion Shen Scale (6-20) 13 Post-test Oxygen Flow Rate (L/min) 4 Oxygen Delivery Method Nasal Cannula Pulse Ox 95 Pulse Rate (60-100) 134 H Full Laps Walked 14 Partial Lap, Number of Tiles Walked 12 Total Distance Walked (ft) 838 08/05/23 13:48 Cardiopulmonary Services by Nadia Ramírez Patient wears 4 lpm at home continuously and states that she was told to wear 5 lpm when walking. Patient states that she would like to wean her oxygen down and sometimes only wears 2.5-4 lpm at rest and also takes breaks from it when she is eating. She has been wearing 4 lpm when she walks; she checks her pulse ox and reports saturations greater than 89%. Today she came in on 2.5 lpm with an SpO2 of 94% even after walking about 75 ft from waiting room to testing room. Patient removed oxygen and after speaking to her for several minutes she had fluctuating saturations between 87-93% on room air. Due to SpO2 of 87 and 88 several times we started testing on 2.5 lpm O2. Patient was able to walk about 250 ft in 2 minutes before SpO2 dropped to 86% on 2.5 lpm. Increased O2 to 4 lpm at that time and patient was able to walk the remaining 4 minutes of testing with an SpO2 greater than 90%. Initialized on 08/05/23 13:48 - END OF NOTE Interpretation Interpretation: The patient ambulated 838 feet over the course of 6 minutes beginning on room air without assistive devices. Pretesting oxygen saturation was noted to be 88% on room air. The patient began testing on 2.5 L/min. However, with ambulation, the patient desaturated to 86%, requiring an escalation of supplemental oxygen flow rate to 4 L/min. Recommendations Recommendations: 2.5 L/min of supplemental oxygen is required at rest, while 4 L/min is required with exertion.
== END | disposition home or self-care (01) ==
PROVIDERS: Referring Provider Nurse Practitioner Acute Care; Visit Provider Nurse Practitioner Acute Care
DX: J44.9 Chronic obstructive pulmonary disease, unspecified (principal)
CPT/HCPCS: 94618

== ENCOUNTER → 2023-08-31 | Outpatient (CLI) | payer MEDICAID, SELFPAY ==
--- NOTE | 2023-08-31 12:35 | CT_ITS ---
INDICATION: Fever and cough EXAMINATION: CT CHEST WITH CONTRAST - CT Chest W/ Contrast Injection TECHNIQUE: Helically acquired images were obtained of the chest following IV contrast. A radiation dose optimization technique was used for this scan. IV Contrast dosage and agent: 100 mL Isovue 300 contrast COMPARISON: CT chest from 06/04/2023 FINDINGS: LUNGS, PLEURA AND LARGE AIRWAYS: Lung windows show underlying emphysema with bleb formation throughout both lung hernández. There is no organized infiltrate or effusion. Previously noted pleural effusions and consolidations have resolved. There is persistent scarring in the right middle lobe on axial image 66 which is sequela of a previously noted area of inflammation on the CT scan from May. No new suspicious noncalcified mass or nodule is noted. THYROID: No thyroid lesions. HEART AND PERICARDIUM: Heart size is normal. No pericardial effusion. There are calcified coronary vessels. VESSELS: Thoracic aorta is not dilated. No aortic dissection. No obvious central pulmonary embolism although this study was not performed with the pulmonary embolism protocol. MEDIASTINUM AND YOBANI: No suspicious axillary, mediastinal or hilar adenopathy. Small hiatal hernia noted with evidence to suspect reflux esophagitis. UPPER ABDOMEN: No acute pathology. BONES: No suspicious lytic or blastic abnormality. Bony structures show degenerative change CT/Chest WITH Contrast IMPRESSION: Underlying emphysema with scarring in the right middle lobe, residual of a previously noted inflammatory process in the right middle lobe in the CTA performed in May of this year. No infiltrate or effusion. Previously noted pleural effusions and consolidations in the lung bases have cleared. Calcified coronary vessels No suspicious adenopathy Small hiatal hernia Electronically Signed: Elijah Back MD at 12:57 EST ,
[2023-08-31 13:08] LABS: CREATININE FINGERSTICK < 0.9 mg/dL (0.55-1.02); EGFR FINGERSTICK > 60.0000 mL/min (>60)
== END | disposition home or self-care (01) ==
LOC: CT 12:34
PROVIDERS: PCP Internal Medicine; Referring Provider Internal Medicine Hematology & Oncology; Visit Provider Internal Medicine Hematology & Oncology
DX: R91.8 Other nonspecific abnormal finding of lung field (principal)
CPT/HCPCS: 71260; Q9967; A4216

== ENCOUNTER → 2023-10-21 | Outpatient (CLI) | payer MEDICAID, SELFPAY | END | disposition home or self-care (01) | LOC: SL 20:15 | PROVIDERS: PCP Internal Medicine; Referring Provider Nurse Practitioner Acute Care; Visit Provider Nurse Practitioner Acute Care | DX: G47.10 Hypersomnia, unspecified (principal) | CPT/HCPCS: 95811 ==

== ENCOUNTER → 2024-01-06 | Outpatient (CLI) | payer MEDICAID, SELFPAY | END | disposition home or self-care (01) | LOC: SL 10:53 | PROVIDERS: PCP Internal Medicine; Visit Provider Nurse Practitioner Acute Care | DX: R69 Illness, unspecified (principal) ==

== ENCOUNTER 2024-06-29 13:59 | Inpatient (IN) | payer MEDICARE, SELFPAY ==
[2024-06-29] VITALS (25 sets, daily range): BP systolic 93–124; BP diastolic 35–100; PULSE 71–109; RESP 14–26; TEMP 36.4–36.7; O2SAT 88–100; BMI 31.4
--- NOTE | 2024-06-29 14:41 | EKG12_ITS ---
Test Reason : Blood Pressure : / mmHG Vent. Rate : 085 BPM Atrial Rate : 085 BPM P-R Int : 146 ms QRS Dur : 076 ms QT Int : 374 ms P-R-T Axes : 077 080 060 degrees QTc Int : 445 ms Normal sinus rhythm Normal ECG Confirmed by KEATON MOSQUEDA, IRENE ([id number]), non linear editor ALEKSANDRA AMADOR ([id number]) on 06/30/2024 1:50:27 PM Referred By: Confirmed By:IRENE PUGH MD
--- NOTE | 2024-06-29 14:42 | EDS_ITS ---
HPI History of Present Illness Chief Complaint: Shortness of Breath Detail of Chief Complaint: Shortness of breath Informant: patient Narrative Narrative: Patient presents with shortness of breath and started 3 days ago. Patient complaining of exertional dyspnea just moving from one room to the next in her home. Patient normally wears 3 L of home O2 and has slowly increased it to 5 L at home. She has a chronic cough that has clear sputum that is no different. She has had no fever. She at times has some chest tightness. She denies recent travel or surgery. Patient states she has history of COPD and last time she was here they thought she might have congestive heart failure but then they determined it was more COPD. She tells me she has had some increased welling in both lower extremities over the last 3 to 4 days. She is not sure if she is gained any weight. [facility] Medical History (Reviewed 02/08/24 @ 13:21 by Linda Warren CHIEF WELLNESS OFFICER, CHIEF WELLNESS OFFICER-C) COPD (chronic obstructive pulmonary disease) Pneumonia Secondary polycythemia Home Medications ?Medication ?Instructions ?Recorded ?Last Taken ?Type albuterol sulfate 90 mcg/actuation 2 puff inhalation .QID shortness 07/22/23 Unknown Rx aerosol inhaler (ProAir HFA) of breath or wheezing #8.5 grams budesonide-formoterol HFA 160 2 puff inhalation BID #1 ea 02/08/24 Unknown Rx mcg-4.5 mcg/actuation aerosol inhaler (Symbicort) montelukast 10 mg tablet 10 mg PO QPM #30 tabs 02/08/24 Unknown Rx tiotropium bromide 2.5 2 inh inhalation QDAY #1 ea 02/08/24 Unknown Rx mcg/actuation mist for inhalation (Spiriva Respimat) Allergy/AdvReac Type Severity Reaction Status Date / Time No Known Allergies Allergy Verified 02/08/24 13:12 Family History (Reviewed 02/08/24 @ 13:21 by Linda Warren CHIEF WELLNESS OFFICER, CHIEF WELLNESS OFFICER-C) Sister Breast cancer Father Lung cancer Mother Brain aneurysm Colon cancer Surgical History (Reviewed 02/08/24 @ 13:21 by Linda Warren CHIEF WELLNESS OFFICER, CHIEF WELLNESS OFFICER-C) History of right hip replacement Social History household members: children housing: house current occupational status: disabled Smoking Status: Light Smoker (<10/day) Tobacco: How many years used: 50 Electronic Cigarette Use: not used how long ago did patient quit smokin.[id number] x 50yrs alcohol intake: former details: used to drink a lot on the weekends substance use type: does not use caffeine: Yes (2) Type: carbonated beverages what type of physical activity do you participate in: none seatbelt use: always do you feel safe at home: Yes ROS ROS ED Review of Systems ROS Unobtainable: other Constitutional Constitutional ED: Reports lethargy; Denies chills, fever(s), sweats or weight loss Eyes Eyes: Denies blurry vision, change in vision or diplopia ENT ENT ED: Denies rhinorrhea or sore throat Cardiovascular Cardiovascular: Reports chest pain; Denies orthopnea or racing heartbeat Respiratory/Chest Respiratory/Chest: Reports cough, dyspnea, dyspnea on exertion and sputum; Denies orthopnea Gastrointestinal Gastrointestinal: Denies abdominal pain, diarrhea, nausea or vomiting Genitourinary Genitourinary ED: Denies dysuria, hematuria or urinary frequency Musculoskeletal Musculoskeletal: Denies arthralgias, back pain, myalgias or neck pain Integumentary Denies abscess, Abrasions or rash Neurologic Neurologic: Denies headache(s) or weakness Psychiatric Psychiatric: Denies anxiety, depression or suicidal thoughts Endocrine Endocrinology: Denies polydipsia, polyphagia or polyuria Hematologic/Lymphatic Hematologic/Lymphatic: Denies easy bleeding, easy bruising or lymphadenopathy Allergic/Immunologic Allergic/Immunologic ED: Denies mouth swelling, tongue swelling or urticaria EXAM Physical Exam Const Vital Signs: 06/29/24 14:03 06/29/24 14:10 06/29/24 14:26 Temperature 97.6 F L Temperature Source Temporal Pulse Rate 93 80 Respiratory Rate 18 26 H Respiratory Effort Short of Breath Labored Respiratory Depth Normal Respiratory Pattern Normal Blood Pressure 124/60 H Blood Pressure Mean 81 Pulse Ox 89 99 Oxygen Delivery Method Nasal Cannula Nasal Cannula Oxygen Flow Rate (L/min) 2 6 06/29/24 14:30 06/29/24 14:31 06/29/24 14:35 Temperature Temperature Source Pulse Rate 86 89 78 Respiratory Rate 18 17 14 Respiratory Effort Respiratory Depth Respiratory Pattern Blood Pressure 99/68 98/60 Blood Pressure Mean 78 72 Pulse Ox 99 99 99 Oxygen Delivery Method Oxygen Flow Rate (L/min) 06/29/24 14:41 06/29/24 14:45 06/29/24 14:50 Temperature Temperature Source Pulse Rate 87 89 89 Respiratory Rate 17 16 18 Respiratory Effort Respiratory Depth Respiratory Pattern Blood Pressure 101/83 H 104/53 L 93/35 L Blood Pressure Mean 89 68 51 Pulse Ox 96 95 96 Oxygen Delivery Method Nasal Cannula Oxygen Flow Rate (L/min) 5 06/29/24 14:51 06/29/24 14:51 06/29/24 14:55 Temperature Temperature Source Pulse Rate 87 86 Respiratory Rate 18 17 Respiratory Effort Respiratory Depth Respiratory Pattern Blood Pressure 102/63 Blood Pressure Mean 74 Pulse Ox 98 91 Oxygen Delivery Method Nasal Cannula Oxygen Flow Rate (L/min) 5 06/29/24 15:00 06/29/24 15:25 06/29/24 15:30 Temperature Temperature Source Pulse Rate 84 87 88 Respiratory Rate 17 15 17 Respiratory Effort Respiratory Depth Respiratory Pattern Blood Pressure 111/67 106/56 L 109/71 Blood Pressure Mean 78 69 83 Pulse Ox 96 95 98 Oxygen Delivery Method Nasal Cannula Oxygen Flow Rate (L/min) 5 06/29/24 15:35 06/29/24 15:40 06/29/24 15:52 Temperature Temperature Source Pulse Rate 81 88 109 H Respiratory Rate 17 15 21 H Respiratory Effort Respiratory Depth Respiratory Pattern Blood Pressure 111/61 111/63 Blood Pressure Mean 75 77 Pulse Ox 96 98 Oxygen Delivery Method Oxygen Flow Rate (L/min) 06/29/24 15:55 06/29/24 16:00 Temperature Temperature Source Pulse Rate 91 89 Respiratory Rate 20 H 20 H Respiratory Effort Respiratory Depth Respiratory Pattern Blood Pressure 115/64 99/55 L Blood Pressure Mean 79 68 Pulse Ox 93 95 Oxygen Delivery Method Oxygen Flow Rate (L/min) Positive well nourished and well developed General Appearance ED: well developed and NAD HEENT Reports TM's clear and moist mucous membranes normocephalic and atraumatic; Negative for trauma or tenderness Tympanic Membrane ED: Yes TM's clear Eyes PERRL and EOMs intact bilaterally General Eye ED: Negative for pale conjunctiva or scleral icterus Neck no lymphadenopathy, supple and no JVD General: Negative for tenderness Chest Wall inspection of chest normal and palpation of chest normal Chest: Negative for tenderness Resp normal respiratory effort and No clear to auscultation bilaterally Resp Narrative: Diminished breath sounds bilaterally. Some faint expiratory wheezes. Few Rales noted left base. No accessory muscle use or retractions. No conversational dyspnea. Effort and Inspection: Negative for respiratory distress or pain with movement Auscultation: Negative for rhonchi, wheezes or diminished lung sounds Cardio regular rate, regular rhythm, S1 normal heart sound, S2 normal heart sound and no murmurs Peripheral Pulses: pulses 2+ throughout GI normal to inspection, nondistended, normoactive bowel sounds, soft to palpation, non-tender, non-distended and no masses Back/Spine no CVA tenderness and no thoracic nor lumbar tenderness Extremity normal to inspection General Extremety ED: Negative for edema General Extremity: Negative for edema Neuro oriented x3, CN's II-XII intact bilaterally, no sensory deficits noted and gait normal Sensorium / Orientation: awake, alert, oriented to person, oriented to place and oriented to time Motor Exam: strength 5/5 throughout and strength abnormal Psych mental status grossly normal Skin no rashes or lesions noted and no wounds MDM MDM MDM Narrative Medical decision making narrative: Patient presents emergency department with exertional dyspnea and had a hard time caring for self. Has history of COPD. Increased O2 requirement at home. She denies any fevers. In the differential would be coronary artery disease versus COPD exacerbation versus infectious etiology or PE. IV line established. EKG obtained arrival shows sinus rhythm with rate of 85 bpm with no acute segment changes. CBC with a showing a 5.1 hemoglobin 12 and platelet count 195. Chemistries unremarkable. Troponin was normal at 6 and BNP was 91. Chest x- ray was normal. While in department I did give her a DuoNeb aerosol and Solu- Medrol 125 mg IV. She did feel little bit improved as far as her breathing but continues to feel just weak and off balance. She tells me that she needs to get her finance information over to Medicaid so they will help pay for her medications as she is run out of her inhalers and medications. Will discuss case with hospitalist to evaluate for admission for COPD exacerbation and will need to have social sciences professor evaluate patient as well. COVID flu and RSV testing was negative. Lab Data Attestation: I reviewed the patient's lab results. Labs: Laboratory Results - last 24 hr 06/29/24 14:21 WBC 5.1 RBC 3.94 L Hgb 12.3 Hct 37.9 MCV 96.2 MCH 31.2 MCHC 32.5 RDW Std Deviation 47.4 H RDW Coeff of Nick 13.4 Plt Count 195 MPV 9.6 Immature Gran % (Auto) 0.400 Neut % (Auto) 74.6 H Lymph % (Auto) 14.3 L Hampton % (Auto) 7.5 Eos % (Auto) 2.4 Baso % (Auto) 0.8 Absolute Neuts (auto) 3.8 Absolute Lymphs (auto) 0.73 L Nucleated RBC % 0 D-Dimer Quant (PE/DVT) 0.35 Sodium 140 Potassium 3.8 Chloride 96 L Carbon Dioxide 42.0 H Anion Gap 2 L BUN 7 Creatinine 0.57 Est GFR (MDRD) Af Amer 137 Est GFR (MDRD) Non-Af 114 BUN/Creatinine Ratio 12.3 Glucose 112 H Calcium 9.6 Troponin I High Sens 6 B-Natriuretic Peptide 90.9 Radiography Diagnostic Testing: Clinical Impression(s) from Imaging Studies Chest X-Ray 06/29/24 15:27 IMPRESSION: Normal x-ray examination of the chest. Electronically Signed: Trace Painter MD at 16:30 EDT , 1 view chest x-ray obtained interpreted by myself as no evidence of infiltrate or pneumothorax or acute disease process EKG Initial EKG: Attestation: I personally reviewed and interpreted this EKG as follows: Comments: Sinus rhythm with rate of 85 bpm with no acute ST segment changes Discharge Plan Dx/Rx/DC Orders Clinical Impression: COPD exacerbation, Weakness, Acute hypotension Disposition Disposition: Acute Care [facility]
[2024-06-29] MEDS: MethylPREDNISolone 125 MG/2 ML Vial IV (14:45)
[2024-06-29 14:49] LABS: Absolute Lymphocyte Count 0.73 X10^3/uL (0.83-4.51); Absolute Neutrophil Count 3.8 X10^3/uL (2.0-7.7); Basophil# 0.04 X10^3/uL; Basophil% 0.8 % (0-1); Eosinophil# 0.12 X10^3/uL; Eosinophils% 2.4 % (0-5); Hematocrit 37.9 % (37-47); Hemoglobin 12.3 g/dL (12.0-15.0); Lymphocyte # 0.73 X10^3/ul (0.83-4.51); Lymphocyte % 14.3 % (19-41); Mean Corp Hgb Conc 32.5 g/dL (32-36); Mean Corpuscular Hgb 31.2 pg (27.0-32.0); Mean Corpuscular Volume 96.2 fL (81-99); Mean Platelet Vol. 9.6 fl (6.2-12.0); Monocyte# 0.38 X10^3/uL; Monocyte% 7.5 % (0-10); NRBC Flagged by Analyzer 0 % (0-5); Neutrophil % 74.6 % (47-70); Platelet Count 195 K/mm3 (150-450); RBC Distribution Width CV 13.4 % (11.6-14.6); RBC Distribution Width SD 47.4 fl (35.1-43.9); Red Blood Count 3.94 M/mm3 (4.2-5.4); White Blood Count 5.1 K/mm3 (4.4-11.0)
[2024-06-29] MEDS: Ipratropium/Albuterol Sulfate 3 ML AMPUL.NEB INHALATION (14:51)
[2024-06-29 15:08] LABS: Anion Gap 2 (5-15); BUN 7 mg/dL (7-18); BUN/Creat Ratio 12.3 RATIO (10-20); Calcium,Total 9.6 mg/dL (8.5-10.1); Chloride 96 mmol/L (98-107); Creatinine, Serum 0.57 mg/dL (0.55-1.02); EST Glomerular Filtration Rate 114 mL/min (>60); Est Glom Filt Rate - Afr Amer 137 mL/min (>60); Glucose 112 mg/dL (74-106); Potassium 3.8 mmol/L (3.5-5.1); Sodium Level 140 mmol/L (136-145); Troponin-I HS 6 pg/mL (3.0-54.0)
[2024-06-29 15:15] LABS: BNP,B-Type NATRIURETIC PEPTIDE 90.9 pg/mL (0-100)
[2024-06-29 15:22] LABS: D-Dimer Quantitative (DVT/PE) 0.35 FEU/ug/m (0.27-0.49)
--- NOTE | 2024-06-29 15:27 | RAD_ITS ---
STUDY: X-RAY CHEST REASON FOR EXAM: Female, 64 years old. dyspnea TECHNIQUE: Single AP portable view of the chest. COMPARISON: 06/19/2023. FINDINGS: The lungs are clear and expanded. There is no demonstrated pleural abnormality. Normal size heart. Normal mediastinum and mary. Normal visualized pulmonary arteries. Normal visualized aortic arch and descending thoracic aorta. Normal visualized thoracic spine. Normal visualized ribs, clavicles, and shoulders. There is no demonstrated abnormality of the visualized soft tissue structures of the upper abdomen. RAD/Chest 1 View (Portable) IMPRESSION: Normal x-ray examination of the chest. Electronically Signed: Trace Painter MD at 16:30 EDT ,
--- NOTE | 2024-06-29 16:37 | HP.PCM.HOS_ITS ---
HPI - General General Date of Admission: 06/29/24 Date of Service: 06/29/24 HPI Narrative DOUG DE LA TORRE, is a 64 F with a PMH as outlined including chronic respiratory failure due to COPD, usually on 2-3L at home who presents via the ED on 06/29/2024 with a complaint of shortness of breath which had been going on for 2-3 days prior to admission. she had to bump up her oxygen to 5L at home. She had a chronic cough productive of clear sputum. She admitted to chest tightness and weakness. She has run out of her inhalers and is awaiting medicaid insurance approval. She denies any fever or chills denying any chest pain or palpitations, nausea vomiting or any other symptoms. Review of symptoms otherwise negative. Vitals in the ED were blood pressure of 99/55 with pulse rate of 89, respiratory rate of 20 and she was saturating at 95% on 5 L of oxygen. CBC was largely unremarkable and BMP showed bicarb of 42. Sodium was 149 creatinine was 0.57. BNP was only 19.9. Respiratory panel for COVID, influenza and RSV was negative. Chest x-ray showed no acute cardiopulmonary process.She is being admitted to be managed for acute exacerbation of COPD. [facility] Medical History (Reviewed 02/08/24 @ 13:21 by Linda Warren VEHICLE MODIFICATION TECHNICIAN, VEHICLE MODIFICATION TECHNICIAN-C) COPD (chronic obstructive pulmonary disease) Pneumonia Secondary polycythemia Home Medications ?Medication ?Instructions ?Recorded ?Last Taken ?Type tiotropium bromide 2.5 2 inh inhalation QDAY #1 ea 02/08/24 Unknown Rx mcg/actuation mist for inhalation (Spiriva Respimat) Allergy/AdvReac Type Severity Reaction Status Date / Time No Known Allergies Allergy Verified 02/08/24 13:12 Family History (Reviewed 02/08/24 @ 13:21 by Linda Warren VEHICLE MODIFICATION TECHNICIAN, VEHICLE MODIFICATION TECHNICIAN-C) Sister Breast cancer Father Lung cancer Mother Brain aneurysm Colon cancer Surgical History History of right hip replacement Social History household members: children housing: house current occupational status: disabled Smoking Status: Light Smoker (<10/day) Tobacco: How many years used: 50 Electronic Cigarette Use: not used how long ago did patient quit smokin.5-2ppd x 50yrs alcohol intake: former details: used to drink a lot on the weekends substance use type: does not use caffeine: Yes (2) Type: carbonated beverages what type of physical activity do you participate in: none seatbelt use: always do you feel safe at home: Yes ROS Constitutional Constitutional: Reports fatigue, malaise and weakness; Denies anorexia, chills or fever(s) Eyes Eyes: Denies change in vision ENT HEENT: Denies dysphagia, headache(s), nasal discharge or sore throat Cardiovascular Cardiovascular: Reports dyspnea on exertion; Denies chest pain, edema, lightheadedness, orthopnea, palpitations, paroxysmal nocturnal dyspnea or rapid heart rate Respiratory/Chest Respiratory/Chest: Reports cough, dyspnea, productive cough, shortness of breath at rest, shortness of breath with exertion and wheezing; Denies excessive phlegm production or hemoptysis Gastrointestinal Gastrointestinal: Denies abdominal pain, constipation, diarrhea, nausea or vomiting Genitourinary Genitourinary: Denies burning urination or nocturia Musculoskeletal Musculoskeletal: Denies arthralgias Neurologic Neurologic: Denies confusion, dizziness, focal weakness, headache(s), seizures or syncope Psychiatric Psychiatric: Denies anxiety or depression Vital Signs Vital Signs Vital Signs: 06/29/24 14:03 06/29/24 14:10 06/29/24 14:26 Temperature 97.6 F L Temperature Source Temporal Pulse Rate 93 80 Respiratory Rate 18 26 H Respiratory Effort Short of Breath Labored Respiratory Depth Normal Respiratory Pattern Normal Blood Pressure 124/60 H Blood Pressure Mean 81 Pulse Ox 89 99 Oxygen Delivery Method Nasal Cannula Nasal Cannula Oxygen Flow Rate (L/min) 2 6 06/29/24 14:30 06/29/24 14:31 06/29/24 14:35 Temperature Temperature Source Pulse Rate 86 89 78 Respiratory Rate 18 17 14 Respiratory Effort Respiratory Depth Respiratory Pattern Blood Pressure 99/68 98/60 Blood Pressure Mean 78 72 Pulse Ox 99 99 99 Oxygen Delivery Method Oxygen Flow Rate (L/min) 06/29/24 14:41 06/29/24 14:45 06/29/24 14:50 Temperature Temperature Source Pulse Rate 87 89 89 Respiratory Rate 17 16 18 Respiratory Effort Respiratory Depth Respiratory Pattern Blood Pressure 101/83 H 104/53 L 93/35 L Blood Pressure Mean 89 68 51 Pulse Ox 96 95 96 Oxygen Delivery Method Nasal Cannula Oxygen Flow Rate (L/min) 5 06/29/24 14:51 06/29/24 14:51 06/29/24 14:55 Temperature Temperature Source Pulse Rate 87 86 Respiratory Rate 18 17 Respiratory Effort Respiratory Depth Respiratory Pattern Blood Pressure 102/63 Blood Pressure Mean 74 Pulse Ox 98 91 Oxygen Delivery Method Nasal Cannula Oxygen Flow Rate (L/min) 5 06/29/24 15:00 06/29/24 15:25 06/29/24 15:30 Temperature Temperature Source Pulse Rate 84 87 88 Respiratory Rate 17 15 17 Respiratory Effort Respiratory Depth Respiratory Pattern Blood Pressure 111/67 106/56 L 109/71 Blood Pressure Mean 78 69 83 Pulse Ox 96 95 98 Oxygen Delivery Method Nasal Cannula Oxygen Flow Rate (L/min) 5 06/29/24 15:35 06/29/24 15:40 06/29/24 15:52 Temperature Temperature Source Pulse Rate 81 88 109 H Respiratory Rate 17 15 21 H Respiratory Effort Respiratory Depth Respiratory Pattern Blood Pressure 111/61 111/63 Blood Pressure Mean 75 77 Pulse Ox 96 98 Oxygen Delivery Method Oxygen Flow Rate (L/min) 06/29/24 15:55 06/29/24 16:00 Temperature Temperature Source Pulse Rate 91 89 Respiratory Rate 20 H 20 H Respiratory Effort Respiratory Depth Respiratory Pattern Blood Pressure 115/64 99/55 L Blood Pressure Mean 79 68 Pulse Ox 93 95 Oxygen Delivery Method Oxygen Flow Rate (L/min) Physical Exam Const alert, oriented x3, no apparent distress and average body habitus General Appearance: cooperative HEENT normocephalic, head/scalp atraumatic, hearing grossly normal bilaterally, moist oral mucous membranes and oropharynx normal Mouth: oral and palatal mucosa normal Eyes PERRL, EOMs intact bilaterally and conjunctivae normal Neck no lymphadenopathy and supple Resp Resp Narrative: diminished breath sounds bibasally, no whezes or crackles. On 5L of oxygen by nasal canula Cardio regular rate, regular rhythm, S1 normal heart sound, S2 normal heart sound and no murmurs GI normal to inspection, nondistended, normoactive bowel sounds, soft to palpation, non-tender, non-distended and hepatosplenomegaly Extremity normal to inspection, full ROM and no clubbing, cyanosis or edema Neuro oriented x3, CN's II-XII intact bilaterally, moves all extremities and no focal motor deficits Motor Exam: strength 5/5 throughout Psych affect normal Results Lab / Micro Data 06/29/24 14:21 06/29/24 14:21 Labs: Laboratory Results - last 24 hr 06/29/24 14:21: WBC 5.1, RBC 3.94 L, Hgb 12.3, Hct 37.9, MCV 96.2, MCH 31.2, MCHC 32.5, RDW Std Deviation 47.4 H, RDW Coeff of Nick 13.4, Plt Count 195, MPV 9.6, Immature Gran % (Auto) 0.400, Neut % (Auto) 74.6 H, Lymph % (Auto) 14.3 L, [place] % (Auto) 7.5, Eos % (Auto) 2.4, Baso % (Auto) 0.8, Absolute Neuts (auto) 3.8, Absolute Lymphs (auto) 0.73 L, Nucleated RBC % 0, D-Dimer Quant (PE/DVT) 0.35, Sodium 140, Potassium 3.8, Chloride 96 L, Carbon Dioxide 42.0 H, Anion Gap 2 L, BUN 7, Creatinine 0.57, Est GFR (MDRD) Af Amer 137, Est GFR (MDRD) Non-Af 114, BUN/Creatinine Ratio 12.3, Glucose 112 H, Calcium 9.6, Troponin I High Sens 6, B-Natriuretic Peptide 90.9 Micro: Microbiology 06/29/24 14:50 Mucosa - Nose SARS-CoV-2, Influenza & RSV (PCR) - Final Imaging Radiology Impression Chest X-Ray 06/29/24 15:27 IMPRESSION: Normal x-ray examination of the chest. Electronically Signed: Trace Painter MD at 16:30 EDT , Assessment & Plan Assessment/Plan (1) COPD exacerbation: (2) Acute hypotension: (3) Weakness: (4) Hypoxia: PLAN: Plan #Hypoxia due to COPD exacerbation in the setting of chronic hypoxic respiratory failure * usually 2 to 3 L of oxygen at home and now requiring 5 L of oxygen. Admits to wheezing and a chronic cough which is productive of clear sputum. She has had to increase her baseline oxygen to 5 L. * It seems patient is trying to get on Medicaid insurance and so she has run out of her breathing treatments at home and this will likely be contributing to her COPD exacerbation. * Admit to MedSurg * start on IV solumedrol. * breathing treatment with bronchdodilators. * Titrate oxygen to maintain sats >90% * CXR showed no acute cardiopulmonary process and initial troponin was negative. BNP was only 90.9. * #Hypotension * Patient blood pressure was in the 90s systolic on review. Hold any BP meds. Hydrate with IV fluid normal saline at 125 cc/h x 2 bags. * Nicotine dependence: * Patient continues to smoke though she says she is cut down and only smokes occasionally nowadays. * Counseled to quit. * Nicotine patch 21 mg daily * DVT prophylaxis: Lovenox CODE STATUS: Full code * Patient counseled extensively about different types of CODE STATUS including full code, DNR CCA and DNR CCA. * Patient elects to be full code. * Total puvo-rf-xule time 16 minutes. Charges/Coding Visit Charges Inpatient E&M: 41815 Init Hosp L3 Procedures Hospitalists Procedures: 45299 Advncd Care Plan 30 Min
[2024-06-29] MEDS: 0.9% Normal Saline (500mL Bag) 500 ML 999 ML IV (16:41)
[2024-06-29] MEDS: 0.9% Normal Saline (1000mL) 1,000 ML 150 ML IV (20:22)
[2024-06-29] MEDS: 0.9% Saline Lock 10 ML Syringe IV (20:22)
[2024-06-30] VITALS (16 sets, daily range): BP systolic 101–116; BP diastolic 63–93; PULSE 82–126; RESP 16–22; TEMP 36.7–36.8; O2SAT 78–96
[2024-06-30] MEDS: Ipratropium/Albuterol Sulfate 3 ML AMPUL.NEB INHALATION ×6 (02:41→22:16)
[2024-06-30] MEDS: 0.9% Normal Saline (1000mL) 1,000 ML 150 ML IV (03:06)
--- NOTE | 2024-06-30 03:16 | CPS ---
RN requested breathing tx for patient, patient SOB from bathroom use
[2024-06-30] MEDS: 0.9% Saline Lock 10 ML Syringe IV ×3 (05:28→20:45)
[2024-06-30 07:21] LABS: Absolute Lymphocyte Count 0.28 X10^3/uL (0.83-4.51); Absolute Neutrophil Count 3.2 X10^3/uL (2.0-7.7); Hematocrit 32.5 % (37-47); Hemoglobin 10.7 g/dL (12.0-15.0); Lymphocyte # 0.28 X10^3/ul (0.83-4.51); Lymphocyte % 7.9 % (19-41); Mean Corp Hgb Conc 32.9 g/dL (32-36); Mean Corpuscular Hgb 31.2 pg (27.0-32.0); Mean Corpuscular Volume 94.8 fL (81-99); Mean Platelet Vol. 9.5 fl (6.2-12.0); Monocyte# 0.06 X10^3/uL; Monocyte% 1.7 % (0-10); NRBC Flagged by Analyzer 0 % (0-5); Neutrophil # 3.18 X10^3/uL (2.7-7.7); Neutrophil % 89.3 % (47-70); POSITIVE DIFFERENTIAL YES; Platelet Count 155 K/mm3 (150-450); RBC Distribution Width CV 13.2 % (11.6-14.6); RBC Distribution Width SD 45.6 fl (35.1-43.9); Red Blood Count 3.43 M/mm3 (4.2-5.4); White Blood Count 3.6 K/mm3 (4.4-11.0)
--- NOTE | 2024-06-30 07:50 | PCM.PN.HOSP ---
Reason for Visit Reason for Visit: Diagnoses Hypotension, unspecified (06/29/24) Chronic obstructive pulmonary disease with (acute) exacerbation (06/29/24) Hypoxemia (06/29/24) Weakness (06/29/24) Subjective Subjective Patient is a 64-year-old lady with history of chronic hypoxic respiratory failure on baseline home oxygen, COPD who presented with progressive shortness of breath and assessment of COPD with acute exacerbation made admitted to a monitored bed where patient is currently being managed Objective Data Objective Data Vital Signs: Vital Signs Temp Pulse Resp BP Pulse Ox O2 Del Method O2 Flow Rate 98.0 F 82 18 113/88 H 96 Nasal Cannula 5 06/30/24 05:15 06/30/24 05:15 06/30/24 05:15 06/30/24 05:15 06/30/24 05:15 06/30/24 05:15 06/30/24 05:15 Oxygen Flow Rate (L/min) 5 Oxygen Delivery Method Nasal Cannula Weight: 85.8 kg Body Mass Index (BMI) 31.4 Intake & Output: Intake and Output for Last 24 Hours 06/28/24 06/29/24 06/30/24 23:59 23:59 23:59 Intake Total 500 / 1000 1750 / 1750 Balance 500 / 1000 1750 / 1750 Lab / Micro Data 06/30/24 07:01 06/30/24 07:01 Labs: Laboratory Results - last 24 hr 06/29/24 14:21: WBC 5.1, RBC 3.94 L, Hgb 12.3, Hct 37.9, MCV 96.2, MCH 31.2, MCHC 32.5, RDW Std Deviation 47.4 H, RDW Coeff of Nick 13.4, Plt Count 195, MPV 9.6, Immature Gran % (Auto) 0.400, Neut % (Auto) 74.6 H, Lymph % (Auto) 14.3 L, [place] % (Auto) 7.5, Eos % (Auto) 2.4, Baso % (Auto) 0.8, Absolute Neuts (auto) 3.8, Absolute Lymphs (auto) 0.73 L, Nucleated RBC % 0, D-Dimer Quant (PE/DVT) 0.35, Sodium 140, Potassium 3.8, Chloride 96 L, Carbon Dioxide 42.0 H, Anion Gap 2 L, BUN 7, Creatinine 0.57, Est GFR (MDRD) Af Amer 137, Est GFR (MDRD) Non-Af 114, BUN/Creatinine Ratio 12.3, Glucose 112 H, Calcium 9.6, Troponin I High Sens 6, B-Natriuretic Peptide 90.9 06/30/24 07:01: WBC 3.6 L, RBC 3.43 L, Hgb 10.7 L, Hct 32.5 L, MCV 94.8, MCH 31.2, MCHC 32.9, RDW Std Deviation 45.6 H, RDW Coeff of Nick 13.2, Plt Count 155, MPV 9.5, Immature Gran % (Auto) 1.100 H, Neut % (Auto) 89.3 H, Lymph % (Auto) 7.9 L, [place] % (Auto) 1.7, Eos % (Auto) 0.0, Baso % (Auto) 0.0, Absolute Neuts (auto) 3.2, Absolute Lymphs (auto) 0.28 L, Nucleated RBC % 0 Micro: Microbiology 06/29/24 14:50 Mucosa - Nose SARS-CoV-2, Influenza & RSV (PCR) - Final Radiography Diagnostic Testing: Radiology Impression Chest X-Ray 06/29/24 15:27 IMPRESSION: Normal x-ray examination of the chest. Electronically Signed: Trace Painter MD at 16:30 EDT , Physical Exam Narrative GENERAL: cooperative HEENT: Atraumatic; normocephalic EYES; Anicteric, Normal Conjunctiva NECK; supple, normal thyroid, RESPIRATORY: Diminished to auscultation CARDIOVASCULAR: Regular S1 S2, GI: soft, normoactive bowel sounds, : No Renal angle tenderness; EXTREMITIES: Trace bipedal edema, no clubbing, MUSCULOSKELETAL: no muscle wasting NEURO: Awake; no lateralizing signs. SKIN: No Rash PSYCH; Flat affect Assessment & Plan Assessment/Plan (1) COPD exacerbation: (2) Acute hypotension: (3) Weakness: (4) Hypoxia: PLAN: Plan Patient is a 64-year-old lady with history of chronic hypoxic respiratory failure on baseline home oxygen, COPD who presented with progressive shortness of breath and assessment of COPD with acute exacerbation made admitted to a monitored bed where patient is currently being managed 1. Acute hypoxia on chronic hypoxic respiratory failure Secondary to COPD with acute exacerbation; Patient started on bronchodilator treatment, systemic steroid as well as antibiotic therapy. Patient placed on oxygen titrated to keep saturation greater than 90. 2. Hypotension ? Present on admission resolved with rehydration 3. Tobacco dependence ? Counseled on cessation, offered nicotine patch for tobacco cravings 4. Class I obesity with BMI of 31 ? Weight loss advised 5. Bipedal edema -do suspect some component of pulmonary hypertension ordered BNP 2D echo and patient started on low-dose Lasix 6. Anemia ? Secondary to chronic disorder monitoring H&H and transfuse if patient becomes symptomatic or hemoglobin falls below 7. Also ordered B12 level iron and ferritin levels as part of her evaluation 7. DVT prophylaxis ? On enoxaparin Time spent in the patient's overall evaluation,decision-making process, review of diagnostic data, adjustment of management, discussion with other providers, nursing nursing and ancillary staff involved in patient's care documentation, 52 Minutes Charges/Coding Visit Charges Inpatient E&M: 98348 Subs Hosp L3
[2024-06-30 07:57] LABS: Anion Gap -1 (5-15); BUN 7 mg/dL (7-18); BUN/Creat Ratio 17.5 RATIO (10-20); Calcium,Total 8.9 mg/dL (8.5-10.1); Chloride 102 mmol/L (98-107); EST Glomerular Filtration Rate 170 mL/min (>60); Est Glom Filt Rate - Afr Amer 205 mL/min (>60); Estimated Creatinine Clearance 75.84 ml/min; Glucose 149 mg/dL (74-106); Potassium 3.9 mmol/L (3.5-5.1); Sodium Level 140 mmol/L (136-145)
[2024-06-30] MEDS: Enoxaparin 40 MG/0.4 ML Syringe SC (09:07)
--- NOTE | 2024-06-30 10:54 | ECHOD_ITS ---
Reason For Study: DYSPNEA Procedure This was a 2D Doppler, Color Flow transthoracic echocardiogram. Exam performed portable in patient room. Left Ventricle Normal LV size. Left ventricular systolic function is normal. Stage 1 diastolic dysfunction. The left ventricular ejection fraction is 70 %. No regional wall motion abnormalities noted. Right Ventricle Normal RV size. Normal systolic function. Atria Normal left atrium. Normal right atrium. Mitral Valve Normal mitral valve. Tricuspid Valve Normal tricuspid valve. Aortic Valve Trisinus/trileaflet aortic valve. Great Vessels Normal aortic root. The pulmonary artery is normal size. Pericardium/Pleural No pericardial effusion. MMode/2D Measurements & Calculations LVIDd: 3.9 cm IVSd: 1.1 cm Ao root diam: 3.0 cm LVIDs: 2.1 cm LVPWd: 1.2 cm FS: 47.1 % LAV(MOD-bp): 53.3 ml LVAd ap4: 24.6 cm2 SV(MOD-sp4): 51.7 ml LAV(MOD-bp) Indexed: 27.6 ml/m2 LVLd ap4: 7.9 cm LAV(MOD-sp2): 43.8 ml EDV(MOD-sp4): 65.6 ml LAV(MOD-sp4): 54.6 ml EDV(sp4-el): 65.0 ml LVAs ap4: 10.1 cm2 LVLs ap4: 6.2 cm ESV(MOD-sp4): 14.0 ml ESV(sp4-el): 13.8 ml EF(MOD-sp4): 78.7 % EF(sp4-el): 78.7 % SV(sp4-el): 51.2 ml LA dimension(2D): 3.7 cm LA A4 area: 19.6 cm2 RA A4 area: 12.2 cm2 TAPSE: 2.3 cm Time Measurements MV dec time: 0.06 sec Doppler Measurements & Calculations MV E max robin: 116.5 cm/sec Lat Peak E' Robin: 8.7 cm/sec Med Peak E' Robin: 11.1 cm/sec MV A max robin: 156.2 cm/sec E/E' lat: 13.4 E/E' med: 10.5 MV E/A: 0.75 MV V2 max: 150.8 cm/sec Ao V2 max: 156.2 cm/sec MV max P.1 mmHg MV dec slope: 1994 cm/sec2 Ao max P.8 mmHg MV V2 mean: 93.6 cm/sec Ao V2 mean: 115.8 cm/sec MV mean P.1 mmHg Ao mean P.9 mmHg MV V2 VTI: 29.8 cm Ao V2 VTI: 32.1 cm AV (velocity ratio): 1.1 LV V1 max: 140.6 cm/sec PA V2 max: 132.1 cm/sec LV V1 max P.9 mmHg PA V2 mean: 93.1 cm/sec LV V1 mean P.3 mmHg LV V1 mean: 96.1 cm/sec LV V1 VTI: 34.4 cm ECHO/Echo Complete Interpretation Summary Normal LV size. Left ventricular systolic function is normal. Stage 1 diastolic dysfunction. The left ventricular ejection fraction is 70 %. Ordering Physician: Alexandro Sanchez Referring Physician: KHADIJAH CARRASCO Performed By: Brionna Christiansen and Student
--- NOTE | 2024-06-30 11:11 | CASEMGMT ---
GRACIE LICONA Assessment Face to Face with patient for initial transition planning/care coordination assessment. GRACIE LICONA introduced self and role at [facility], pt voices understanding. Pt is A&Ox4 and is resting comfortably in bed and is calm. Care providers, pharmacy, and demographics verified. Admitting dx: SOB LACE Strata: 2 PCP: Emily Silva Specialists: Crystal (Oncology), Olamide Brian (Pulm) Preferred Pharmacy: [facility] Insurance: [facility] A/B. Pt states that she has been having troubles applying for JEANETTE. E-Mail sent to Rehana ([employer]) to notify that the pt would like to see her. Prescription Benefit: None at this time. Pt educated about free services such as [facility]. LNOK: Kyrie Combs (Son) Living Arrangements: Pt lives with her son in a single story home with 3-4 steps to enter ADLs/IADLs: states ind Transportation: Pt does not drive. Pt son drives her. Denies concerns DME: Home oxygen through [employer]. Confirmed 5 lpm at rest and 6 lpm w/ exertion per [employer]. Pt states that she has a concentrator, pulse ox, and portable tanks. Pt has a portable tank at bedside currently. Pt denies further DME uses or needs HHC/SNF: Denies Hx Plan: TBD. Anticipate DC home tomorrow per Dr. Sanchez. CM to follow O2 requirements. 6-click is 22. PT is pending. Pt states that it is too early to tell what she will need at time of DC. CM to follow. Brittany Jennings RN, CM
[2024-06-30 11:20] LABS: Vitamin B12 155 pg/mL (211-911)
[2024-06-30 11:30] LABS: BNP,B-Type NATRIURETIC PEPTIDE 166.2 pg/mL (0-100)
[2024-06-30 11:41] LABS: Ferritin 265 ng/mL (8-252); Iron 92 ug/dL (50-170); Iron Binding Capacity,Total 214 ug/dL (250-450)
[2024-06-30] MEDS: Ensure Plus High Protein 120 ML LIQUID PO (17:27)
[2024-06-30] MEDS: Acetaminophen 325 MG Tablet 650 MG PO (20:46)
[2024-07-01] VITALS (11 sets, daily range): BP systolic 101–128; BP diastolic 61–79; PULSE 85–107; RESP 16–22; TEMP 36.6–36.9; O2SAT 91–98
[2024-07-01] MEDS: Ipratropium/Albuterol Sulfate 3 ML AMPUL.NEB INHALATION ×6 (03:42→23:50)
[2024-07-01] MEDS: 0.9% Saline Lock 10 ML Syringe IV ×3 (05:05→21:33)
[2024-07-01 07:37] LABS: Absolute Lymphocyte Count 0.33 X10^3/uL (0.83-4.51); Absolute Neutrophil Count 6.4 X10^3/uL (2.0-7.7); Basophil# 0.01 X10^3/uL; Basophil% 0.1 % (0-1); Hematocrit 33.8 % (37-47); Hemoglobin 11.2 g/dL (12.0-15.0); Lymphocyte # 0.33 X10^3/ul (0.83-4.51); Lymphocyte % 4.7 % (19-41); Mean Corp Hgb Conc 33.1 g/dL (32-36); Mean Corpuscular Hgb 31.6 pg (27.0-32.0); Mean Corpuscular Volume 95.5 fL (81-99); Mean Platelet Vol. 9.6 fl (6.2-12.0); Monocyte# 0.18 X10^3/uL; Monocyte% 2.5 % (0-10); NRBC Flagged by Analyzer 0 % (0-5); Neutrophil # 6.44 X10^3/uL (2.7-7.7); Neutrophil % 91.1 % (47-70); POSITIVE DIFFERENTIAL YES; Platelet Count 185 K/mm3 (150-450); RBC Distribution Width CV 13.8 % (11.6-14.6); RBC Distribution Width SD 48.2 fl (35.1-43.9); Red Blood Count 3.54 M/mm3 (4.2-5.4); White Blood Count 7.1 K/mm3 (4.4-11.0)
[2024-07-01] MEDS: Enoxaparin 40 MG/0.4 ML Syringe SC (08:17)
[2024-07-01] MEDS: Ensure Plus High Protein 120 ML LIQUID PO ×3 (08:17→17:02)
--- NOTE | 2024-07-01 09:49 | PN.HOSP_ITS ---
Reason for Visit Reason for Visit: Diagnoses Hypotension, unspecified (06/29/24) Chronic obstructive pulmonary disease with (acute) exacerbation (06/29/24) Hypoxemia (06/29/24) Weakness (06/29/24) Subjective Subjective Patient seen breathing still remains difficult at rest. Currently on 5 L. Objective Data Objective Data Vital Signs: Vital Signs Temp Pulse Resp BP Pulse Ox O2 Del Method O2 Flow Rate 97.9 F 102 H 18 102/76 98 Nasal Cannula 5 07/01/24 08:17 07/01/24 08:17 07/01/24 08:17 07/01/24 08:17 07/01/24 08:17 07/01/24 08:26 07/01/24 08:26 FiO2 21 06/30/24 22:16 Oxygen Flow Rate (L/min) 5 Oxygen Delivery Method Nasal Cannula Weight: 85.8 kg Body Mass Index (BMI) 31.4 Intake & Output: Intake and Output for Last 24 Hours 06/29/24 06/30/24 07/01/24 23:59 23:59 23:59 Intake Total 500 / 1000 3350 / 3350 Balance 500 / 1000 3350 / 3350 Lab / Micro Data 07/01/24 07:06 06/30/24 07:01 Labs: Laboratory Results - last 24 hr 06/30/24 07:01: Iron 92, TIBC 214 L, Iron Saturation 43.0, Ferritin 265 H, B- Natriuretic Peptide 166.2 H, Vitamin B12 155 L 07/01/24 07:06: WBC 7.1, RBC 3.54 L, Hgb 11.2 L, Hct 33.8 L, MCV 95.5, MCH 31.6, MCHC 33.1, RDW Std Deviation 48.2 H, RDW Coeff of Nick 13.8, Plt Count 185, MPV 9.6, Immature Gran % (Auto) 1.600 H, Neut % (Auto) 91.1 H, Lymph % (Auto) 4.7 L, [place] % (Auto) 2.5, Eos % (Auto) 0.0, Baso % (Auto) 0.1, Absolute Neuts (auto) 6.4, Absolute Lymphs (auto) 0.33 L, Nucleated RBC % 0 Micro: Microbiology 06/29/24 14:50 Mucosa - Nose SARS-CoV-2, Influenza & RSV (PCR) - Final Radiography Diagnostic Testing: Radiology Impression Echocardiogram 06/30/24 10:54 Interpretation Summary Normal LV size. Left ventricular systolic function is normal. Stage 1 diastolic dysfunction. The left ventricular ejection fraction is 70 %. Ordering Physician: Alexandro Sanchez Referring Physician: KHADIJAH CARRASCO Performed By: Brionna Christiansen and Student Physical Exam Narrative GENERAL: cooperative HEENT: Atraumatic; normocephalic EYES; Anicteric, Normal Conjunctiva NECK; supple, normal thyroid, RESPIRATORY: Diminished to auscultation CARDIOVASCULAR: Regular S1 S2, GI: soft, normoactive bowel sounds, : No Renal angle tenderness; EXTREMITIES: Trace bipedal edema, no clubbing, MUSCULOSKELETAL: no muscle wasting NEURO: Awake; no lateralizing signs. SKIN: No Rash PSYCH; Flat affect Assessment & Plan Assessment/Plan (1) COPD exacerbation: (2) Acute hypotension: (3) Weakness: (4) Hypoxia: PLAN: Plan Patient is a 64-year-old lady with history of chronic hypoxic respiratory failure on baseline home oxygen, COPD who presented with progressive shortness of breath and assessment of COPD with acute exacerbation made admitted to a monitored bed where patient is currently being managed 1. Acute hypoxia on chronic hypoxic respiratory failure Secondary to COPD with acute exacerbation; Patient started on bronchodilator treatment, systemic steroid as well as antibiotic therapy. Patient placed on oxygen titrated to keep saturation greater than 90. Placed ? 07/01/2024; patient progress arthrotomies low we will continue with current therapy. 2. Hypotension ? Present on admission resolved with rehydration 3. Tobacco dependence ? Counseled on cessation, offered nicotine patch for tobacco cravings 4. Class I obesity with BMI of 31 ? Weight loss advised 5. Bipedal edema -do suspect some component of pulmonary hypertension ordered BNP 2D echo and patient started on low-dose Lasix 6. Anemia ? Secondary to chronic disorder monitoring H&H and transfuse if patient becomes symptomatic or hemoglobin falls below 7. Also ordered B12 level iron and ferritin levels as part of her evaluation 7. DVT prophylaxis ? On enoxaparin 8. Physical deconditioning ? Requested for PT OT eval and social insurance administrator to assist with discharge planning Time spent in the patient's overall evaluation,decision-making process, review of diagnostic data, adjustment of management, discussion with other providers, nursing nursing and ancillary staff involved in patient's care documentation, 40 Minutes Charges/Coding Visit Charges Inpatient E&M: 99930 Subs Hosp L2
[2024-07-01 10:12] LABS: Anion Gap 4 (5-15); BUN 8 mg/dL (7-18); BUN/Creat Ratio 13.9 RATIO (10-20); Calcium,Total 9.8 mg/dL (8.5-10.1); Chloride 104 mmol/L (98-107); Creatinine, Serum 0.57 mg/dL (0.55-1.02); EST Glomerular Filtration Rate 112 mL/min (>60); Est Glom Filt Rate - Afr Amer 136 mL/min (>60); Estimated Creatinine Clearance 75.84 ml/min; Glucose 146 mg/dL (74-106); Magnesium 2.4 mg/dL (1.6-2.6); Phosphorus 2.6 mg/dL (2.5-4.9); Potassium 3.8 mmol/L (3.5-5.1); Sodium Level 141 mmol/L (136-145)
[2024-07-01] MEDS: Polyethylene Glycol 3350 17 GM PACKET PO (12:25)
--- NOTE | 2024-07-01 12:53 | CASEMGMT ---
Social Work SW met with pt and discussed advance directives. Pt choosing to complete a HCPOA naming her sister Demi Jennings. Pt does not wish to complete living will at this time. Original document given to pt and copy placed on pt chart. JOSE EDUARDO Hartman
--- NOTE | 2024-07-01 13:03 | CASEMGMT ---
Social Work SW met with pt and completed Social Determinants of Health Screening. Pt lives at home with her adult son who does not work. Pt explaining home condition as a hoarding house, but with garbage. Pt stating she cannot afford trash pickle maker and therefore the garbage is piling up throughout her house and she can barely get around. Pt becoming anxious when discussing living environment, standing and pacing then leaning over the bed holding head in hands. SW assisted pt with calming techniques. Pt stating her refrigerator is broken and repair man would not come into house to fix it due to disarray. Pt stating concerns with food insecurity and that she sends her son with money each day to bring home food. Pt stating that she thinks she qualifies for Medicaid but did not turn in the correct paperwork. Pt was assessed by Rehana from [employer] for Medicaid eligibility. Pt has 401Ks and investments that put her over income. SW met with pt again and discussed finances and pt confirms amount of finances accessible to her. SW and pt discussed need for pt to use her own resources to clean up her home, purchase trash pickle maker and purchase food. SW provided written resources on hoarding cleanup companies. SW also spoke with pt regarding counseling for anxiety as pt is clearly overwhelmed by home situation and appears to be lacking coping skills. A list of Counselors provided to pt and pt acknowledging the benefit and need of connecting with a counselor. SW answered pt questions regarding differences between Medicare and Medicaid and provided information on medicare Part D prescription coverage and provided written information from [employer] to help with obtaining coverage. Community Resources provided to pt for prescription assistance, [employer], [employer], [employer], food, counseling and hoarding cleanup. JOSE EDUARDO Hartman
[2024-07-01] MEDS: ALPRAZolam 0.25 MG Tablet PO (14:20)
[2024-07-02 03:00] VITALS: BP 122/81; PULSE 66; RESP 16; TEMP 36.7; O2SAT 92
[2024-07-02 05:15] VITALS: PULSE 90; RESP 20
[2024-07-02] MEDS: Ipratropium/Albuterol Sulfate 3 ML AMPUL.NEB INHALATION (05:16)
[2024-07-02] MEDS: ALPRAZolam 0.25 MG Tablet PO (05:16)
[2024-07-02] MEDS: Polyethylene Glycol 3350 17 GM PACKET PO (05:29)
[2024-07-02 06:38] LABS: Absolute Lymphocyte Count 0.37 X10^3/uL (0.83-4.51); Absolute Neutrophil Count 7.2 X10^3/uL (2.0-7.7); Basophil# 0.02 X10^3/uL; Basophil% 0.3 % (0-1); Hematocrit 37.4 % (37-47); Hemoglobin 12.1 g/dL (12.0-15.0); Lymphocyte # 0.37 X10^3/ul (0.83-4.51); Lymphocyte % 4.6 % (19-41); Mean Corp Hgb Conc 32.4 g/dL (32-36); Mean Corpuscular Hgb 31.7 pg (27.0-32.0); Mean Corpuscular Volume 97.9 fL (81-99); Mean Platelet Vol. 9.5 fl (6.2-12.0); Monocyte# 0.22 X10^3/uL; Monocyte% 2.8 % (0-10); NRBC Flagged by Analyzer 0.4 % (0-5); Neutrophil # 7.22 X10^3/uL (2.7-7.7); Neutrophil % 90.4 % (47-70); POSITIVE DIFFERENTIAL YES; Platelet Count 208 K/mm3 (150-450); RBC Distribution Width CV 13.9 % (11.6-14.6); RBC Distribution Width SD 49.1 fl (35.1-43.9); Red Blood Count 3.82 M/mm3 (4.2-5.4)
[2024-07-02 07:00] VITALS: PULSE 84
[2024-07-02 07:01] LABS: Anion Gap 5 (5-15); BUN 11 mg/dL (7-18); Calcium,Total 9.8 mg/dL (8.5-10.1); Chloride 100 mmol/L (98-107); Creatinine, Serum 0.73 mg/dL (0.55-1.02); EST Glomerular Filtration Rate 85 mL/min (>60); Est Glom Filt Rate - Afr Amer 102 mL/min (>60); Estimated Creatinine Clearance 75.84 ml/min; Glucose 169 mg/dL (74-106); Potassium 3.6 mmol/L (3.5-5.1); Sodium Level 139 mmol/L (136-145)
[2024-07-02 07:28] VITALS: BP 129/73; PULSE 88; RESP 20; TEMP 36.6; O2SAT 97
--- NOTE | 2024-07-02 07:48 | PN.HOSP_ITS ---
Reason for Visit Reason for Visit: Diagnoses Hypotension, unspecified (06/29/24) Chronic obstructive pulmonary disease with (acute) exacerbation (06/29/24) Hypoxemia (06/29/24) Weakness (06/29/24) Subjective Subjective Patient seen continues to improve clinically patient to have ambulatory oxygen assessment with her baseline oxygen prior to being discharged. Objective Data Objective Data Vital Signs: Vital Signs Temp Pulse Resp BP Pulse Ox O2 Del Method O2 Flow Rate 97.9 F 88 20 H 129/73 H 97 Nasal Cannula 5 07/02/24 07:28 07/02/24 07:28 07/02/24 07:28 07/02/24 07:28 07/02/24 07:28 07/02/24 07:28 07/02/24 07:28 FiO2 21 06/30/24 22:16 Oxygen Flow Rate (L/min) 5 Oxygen Delivery Method Nasal Cannula Weight: 85.8 kg Body Mass Index (BMI) 31.4 Intake & Output: Intake and Output for Last 24 Hours 06/30/24 07/01/24 07/02/24 23:59 23:59 23:59 Intake Total 3350 / 3350 960 / 1360 700 / 700 Balance 3350 / 3350 960 / 1360 700 / 700 Lab / Micro Data 07/02/24 06:00 07/02/24 06:00 Labs: Laboratory Results - last 24 hr 07/01/24 07:06: Sodium 141, Potassium 3.8, Chloride 104, Carbon Dioxide 33.0 H, Anion Gap 4 L, BUN 8, Creatinine 0.57, Estim Creat Clear Calc 75.84, Est GFR (MDRD) Af Amer 136, Est GFR (MDRD) Non-Af 112, BUN/Creatinine Ratio 13.9, G lucose 146 H, Calcium 9.8, Phosphorus 2.6, Magnesium 2.4 07/02/24 06:00: WBC 8.0, RBC 3.82 L, Hgb 12.1, Hct 37.4, MCV 97.9, MCH 31.7, MCHC 32.4, RDW Std Deviation 49.1 H, RDW Coeff of Nick 13.9, Plt Count 208, MPV 9.5, Immature Gran % (Auto) 1.900 H, Neut % (Auto) 90.4 H, Lymph % (Auto) 4.6 L, [place] % (Auto) 2.8, Eos % (Auto) 0.0, Baso % (Auto) 0.3, Absolute Neuts (auto) 7.2, Absolute Lymphs (auto) 0.37 L, Nucleated RBC % 0.4, Sodium 139, Potassium 3.6, Chloride 100, Carbon Dioxide 34.0 H, Anion Gap 5, BUN 11, Creatinine 0.73, Estim Creat Clear Calc 75.84, Est GFR (MDRD) Af Amer 102, Est GFR (MDRD) Non-Af 85, BUN/Creatinine Ratio 15.0, Glucose 169 H, Calcium 9.8 Micro: Microbiology 06/29/24 14:50 Mucosa - Nose SARS-CoV-2, Influenza & RSV (PCR) - Final Physical Exam Narrative GENERAL: cooperative HEENT: Atraumatic; normocephalic EYES; Anicteric, Normal Conjunctiva NECK; supple, normal thyroid, RESPIRATORY: Diminished to auscultation CARDIOVASCULAR: Regular S1 S2, GI: soft, normoactive bowel sounds, : No Renal angle tenderness; EXTREMITIES: Trace bipedal edema, no clubbing, MUSCULOSKELETAL: no muscle wasting NEURO: Awake; no lateralizing signs. SKIN: No Rash PSYCH; Flat affect Assessment & Plan Assessment/Plan (1) COPD exacerbation: (2) Acute hypotension: (3) Weakness: (4) Hypoxia: PLAN: Plan Patient is a 64-year-old lady with history of chronic hypoxic respiratory failure on baseline home oxygen, COPD who presented with progressive shortness of breath and assessment of COPD with acute exacerbation made admitted to a monitored bed where patient is currently being managed 1. Acute hypoxia on chronic hypoxic respiratory failure Secondary to COPD with acute exacerbation; Patient started on bronchodilator treatment, systemic steroid as well as antibiotic therapy. Patient placed on oxygen titrated to keep saturation greater than 90. Placed ? 07/01/2024; patient progress arthrotomies low we will continue with current therapy. ? 07/02/2024. Patient to be assessed for possible discharge 2. Hypotension ? Present on admission resolved with rehydration 3. Tobacco dependence ? Counseled on cessation, offered nicotine patch for tobacco cravings 4. Class I obesity with BMI of 31 ? Weight loss advised 5. Bipedal edema -do suspect some component of pulmonary hypertension ordered BNP 2D echo and patient started on low-dose Lasix 6. Anemia ? Secondary to chronic disorder monitoring H&H and transfuse if patient becomes symptomatic or hemoglobin falls below 7. Also ordered B12 level iron and ferritin levels as part of her evaluation 7. DVT prophylaxis ? On enoxaparin 8. Physical deconditioning ? Requested for PT OT eval and social worker palliative care to assist with discharge planning Time spent in the patient's overall evaluation,decision-making process, review of diagnostic data, adjustment of management, discussion with other providers, nursing nursing and ancillary staff involved in patient's care documentation, 35 minutes
--- NOTE | 2024-07-02 09:27 | DS.PCM_ITS ---
Providers Date of Admission: 06/29/24 Date of Discharge: 07/02/24 Primary Care Physician: Dr. Emily Silva MD Reason For Visit: SOB Diagnosis Discharge Diagnosis (1) COPD exacerbation: Status: Chronic Code(s): J44.1 - Chronic obstructive pulmonary disease with (acute) exacerbation (2) Acute hypotension: Status: Acute Code(s): I95.9 - Hypotension, unspecified (3) Weakness: Status: Acute Code(s): R53.1 - Weakness (4) Hypoxia: Status: Acute Code(s): R09.02 - Hypoxemia Plan Patient is a 64-year-old lady with history of chronic hypoxic respiratory failure on baseline home oxygen, COPD who presented with progressive shortness of breath and assessment of COPD with acute exacerbation made admitted to a monitored bed where patient is currently being managed 1. Acute hypoxia on chronic hypoxic respiratory failure Secondary to COPD with acute exacerbation; Patient started on bronchodilator treatment, systemic steroid as well as antibiotic therapy. Patient placed on oxygen titrated to keep saturation greater than 90. Placed ? 07/01/2024; patient progress arthrotomies low we will continue with current therapy. ? 07/02/2024. Patient to be assessed for possible discharge 2. Hypotension ? Present on admission resolved with rehydration 3. Tobacco dependence ? Counseled on cessation, offered nicotine patch for tobacco cravings 4. Class I obesity with BMI of 31 ? Weight loss advised 5. Bipedal edema -do suspect some component of pulmonary hypertension ordered BNP 2D echo and patient started on low-dose Lasix 6. Anemia ? Secondary to chronic disorder monitoring H&H and transfuse if patient becomes symptomatic or hemoglobin falls below 7. Also ordered B12 level iron and ferritin levels as part of her evaluation 7. DVT prophylaxis ? On enoxaparin 8. Physical deconditioning ? Requested for PT OT eval and family welfare social work professor to assist with discharge planning Time spent in the patient's overall evaluation,decision-making process, review of diagnostic data, adjustment of management, discussion with other providers, nursing nursing and ancillary staff involved in patient's care documentation, 35 minutes Medications at Discharge Home Medications tiotropium bromide 2.5 mcg/actuation mist for inhalation (Spiriva Respimat) 2 inh inhalation QDAY #1 ea 02/08/24 alprazolam 0.25 mg tablet 0.25 mg PO TID PRN PRN Anxiety/Restlessness/Sleep #20 tabs 07/02/24 azithromycin 500 mg tablet 500 mg PO DAILY 3 days #3 tabs 07/02/24 budesonide-formoterol HFA 160 mcg-4.5 mcg/actuation aerosol inhaler (Symbicort) 1 inh inhalation BID #10.2 grams 07/02/24 cefdinir 300 mg capsule 300 mg PO BID #10 caps 07/02/24 polyethylene glycol 3350 17 gram/dose oral powder (Miralax) 17 g PO DAILY #510 grams 07/02/24 prednisone 20 mg tablet 20 mg PO BID #14 tabs 07/02/24 pseudoephedrine-guaifenesin ER 60 mg-600 mg tablet,extend release 12hr (Mucinex D) 1 tab PO Q12H PRN cold symptoms #20 tabs 07/02/24 Physical Exam Narrative GENERAL: cooperative HEENT: Atraumatic; normocephalic EYES; Anicteric, Normal Conjunctiva NECK; supple, normal thyroid, RESPIRATORY: Diminished to auscultation CARDIOVASCULAR: Regular S1 S2, GI: soft, normoactive bowel sounds, : No Renal angle tenderness; EXTREMITIES: Trace bipedal edema, no clubbing, MUSCULOSKELETAL: no muscle wasting NEURO: Awake; no lateralizing signs. SKIN: No Rash PSYCH; Flat affect Weight / BMI Weight Weight: 85.8 kg Body Mass Index (BMI) 31.4 ABG / Lab / Microbiology Data 07/02/24 06:00 07/02/24 06:00 Laboratory: Laboratory Results - last 24 hr 07/01/24 07:06: Sodium 141, Potassium 3.8, Chloride 104, Carbon Dioxide 33.0 H, Anion Gap 4 L, BUN 8, Creatinine 0.57, Estim Creat Clear Calc 75.84, Est GFR (MDRD) Af Amer 136, Est GFR (MDRD) Non-Af 112, BUN/Creatinine Ratio 13.9, G lucose 146 H, Calcium 9.8, Phosphorus 2.6, Magnesium 2.4 07/02/24 06:00: WBC 8.0, RBC 3.82 L, Hgb 12.1, Hct 37.4, MCV 97.9, MCH 31.7, MCHC 32.4, RDW Std Deviation 49.1 H, RDW Coeff of Nick 13.9, Plt Count 208, MPV 9.5, Immature Gran % (Auto) 1.900 H, Neut % (Auto) 90.4 H, Lymph % (Auto) 4.6 L, [place] % (Auto) 2.8, Eos % (Auto) 0.0, Baso % (Auto) 0.3, Absolute Neuts (auto) 7.2, Absolute Lymphs (auto) 0.37 L, Nucleated RBC % 0.4, Sodium 139, Potassium 3.6, Chloride 100, Carbon Dioxide 34.0 H, Anion Gap 5, BUN 11, Creatinine 0.73, Estim Creat Clear Calc 75.84, Est GFR (MDRD) Af Amer 102, Est GFR (MDRD) Non-Af 85, BUN/Creatinine Ratio 15.0, Glucose 169 H, Calcium 9.8 Microbiology: Microbiology 06/29/24 14:50 Mucosa - Nose SARS-CoV-2, Influenza & RSV (PCR) - Final D/C Instructions Discharge Diet: No restrictions Discharge Activity: Return to Normal Activity Call your doctor if you observe: Fever of 101 or Higher, Shortness of breath, Fainting spells and Chest pain Meaningful Use Info Meaningful Use Meaningful Use Diagnoses (Choose all that apply): None applicable Ischemic Stroke Statin Dosing Therapy Reference: STATIN DOSE THERAPY REFERENCE: * Patients > 75 years receive moderate or high dose statin therapy. * Patients 75 years or YOUNGER should receive HIGH intensity statin dose unless contraindicated. You will be required to document reason for non-treatment if statin daily dose does not meet guidelines. HIGH DOSE STATIN THERAPY DAILY Atorvastatin > than or = to 40 mg Rosuvastatin > than or = to 20 mg Amlodipine + Atorvastatin > than or = to 2.5/40 mg Ezetimibe + Simvastatin 10/80 mg Simvastatin 80mg Discharge Plan Admission Admit Date/Time: 06/29/24 16:54 Attending Provider: Alexandro Sanchez Primary Care Provider: Emily Silva Consulting Providers: Marisa St Discharge Orders/Prescriptions Prescriptions: New budesonide-formoterol [Symbicort] 160-4.5 mcg/actuation HFA aerosol inhaler 1 inh inhalation BID Qty: 10.2 0RF polyethylene glycol 3350 [Miralax] 17 gram/dose powder 17 g PO DAILY Qty: 510 0RF prednisone 20 mg tablet 20 mg PO BID Qty: 14 0RF cefdinir 300 mg capsule 300 mg PO BID Qty: 10 0RF azithromycin 500 mg tablet 500 mg PO DAILY 3 Days Qty: 3 0RF alprazolam 0.25 mg Tablet 0.25 mg PO TID PRN PRN (Reason: Anxiety/Restlessness/Sleep) Qty: 20 0RF pseudoephedrine-guaifenesin [Mucinex D] 60-600 mg tablet extended release 12 hr 1 tab PO Q12H PRN (Reason: cold symptoms) Qty: 20 0RF Continued Spiriva Respimat 2.5 mcg/actuation mist 2 inh inhalation QDAY Qty: 1 6RF Rx Instructions: administer at approximately the same time(s) each day Referrals / Follow Up: Emily Silva MD [Primary Care Provider] - Within 1 Week Milotn Brian DO [Med Staff - Active Staff] - Within 1 Month Disposition Disposition (needs filled in before D/C Order can be placed): Home Health Service Charges/Coding Visit Charges Inpatient E&M: 98587 Disch Hosp >30min
[2024-07-02 09:33] VITALS: BP 129/73; PULSE 88; RESP 20; TEMP 36.6; O2SAT 94
--- NOTE | 2024-07-02 10:36 | CASEMGMT ---
Social Work As per RN, pt is running out of food at home and her home is cluttered. SW met w/pt in the room in regard to this. Pt was already given resources for de-cluttering, and for food resources. Additionally, pt interested in a Meals on Wheels referral, referral made. Pt also asked about making a will, and how to go about that. SW educated pt about [employer] online, also advised to call [employer] for additional resources. SW spoke w/pt about prescriptions, pt does not think that she has coverage. SW called [facility], pt does have a Medicare Part D for prescriptions, called [facility]. The pharmacy is filling pt's prescriptions now, they cannot fill the over the counter meds prescribed through pt's insurance however. SW let pt know this, and let her know any pharmacy should be able to run prescriptions through her Part D, pt states understanding. SW spoke w/pt about home health care, pt states she is home bound and may want HHC. However, she states she wants to get her home cleaned up first. Upon further discussion, pt will wait to get her home cleaned up and then follow up w/her PCP to get home health set up. No further needs anticipated at this time, pt to go home today, resources given and Meals on Wheels set up. SYDNI Jimenez
== END 2024-07-02 13:35 | disposition home or self-care (01) | DRG 191 ==
LOC: ED 16:37 → PCU 18:41
PROVIDERS: Admitting Provider Student in an Organized Health Care Education/Training Program; Emergency Provider Emergency Medicine; PCP Internal Medicine; Visit Provider Internal Medicine
DX: J44.1 Chronic obstructive pulmonary disease with (acute) exacerbation (principal); J96.11 Chronic respiratory failure with hypoxia; D63.8 Anemia in other chronic diseases classified elsewhere; I27.20 Pulmonary hypertension, unspecified; I95.9 Hypotension, unspecified; Z99.81 Dependence on supplemental oxygen; E66.9 Obesity, unspecified; F17.200 Nicotine dependence, unspecified, uncomplicated; Z68.31 Body mass index [BMI] 31.0-31.9, adult; R53.81 Other malaise; Z59.7 Insufficient social insurance and welfare support; Z79.51 Long term (current) use of inhaled steroids; Z79.899 Other long term (current) drug therapy
CPT/HCPCS: 36415; 71045; 80048; 82607; 82728; 83540; 83550; 83735; 83880; 84100; 84484; 85025; 85379; 87631; 93005; 93306; 94640; 94762; 97161; 97166; 97535; 97802; 99285; 99406; J7030; A4216

== ENCOUNTER → 2024-07-07 | Outpatient (CLI) | payer MEDICARE, SELFPAY ==
--- NOTE | 2024-07-07 14:39 | BI_ITS ---
MAMMOGRAPHY - BILATERAL SCREENING REASON FOR EXAM: Female, 64 years old. Routine annual screening examination. PERTINENT HISTORY: Sister with breast cancer. TECHNIQUE: Digital bilateral breast lobo (3D mammographic acquisition) in the CC and MLO projections. 2-D mediolateral oblique (MLO) and craniocaudad (CC) views of both breasts were obtained. CAD: Full Field Digital Mammography with Computer Added Detection was performed. COMPARISON: Comparison is made with prior study dated July 06, 2023 and April 29, 2016. FINDINGS: Breast Composition: The breasts are almost entirely fatty. There are no dominant masses or suspicious calcifications. No other significant abnormalities are identified. There has been no significant change since the prior study. BI/SCRN MAMM (CAD)W/LOBO BILAT IMPRESSION: Stable bilateral screening mammogram. Yearly follow-up mammogram recommended. (A) ASSESSMENT CATEGORY: BIRADS Category 1: Negative. A letter regarding these results will be sent to the patient by the facility within 30 days. Approximately 10% of breast cancers are not detected by mammography. A normal mammogram should not delay biopsy of a clinically suspicious abnormality. [id number] Electronically Signed: Joaquim Montenegro MD at 15:37 EDT ,
== END | disposition home or self-care (01) ==
LOC: OPBI 14:39
PROVIDERS: PCP Internal Medicine; Referring Provider Internal Medicine Hematology & Oncology; Visit Provider Internal Medicine Hematology & Oncology
DX: Z12.31 Encounter for screening mammogram for malignant neoplasm of breast (principal)
CPT/HCPCS: 77063; 77067

== ENCOUNTER → 2024-09-06 | Outpatient (CLI) | payer MEDICARE, SELFPAY ==
--- NOTE | 2024-09-06 13:32 | CT_ITS ---
STUDY: LOW DOSE CT LUNG CANCER SCREENING REASON FOR EXAM: Female, 64 years old. Lung cancer screening -- and gt;20 pk yr hx; asymptomatic; current smoker RADIATION DOSAGE (If Supplied By Facility): CTDIvol = ( 2.39 ) mGy, DLP = ( 80.41 ) mGycm TECHNIQUE: No contrast was administered. Low dose technique was utilized (average mAS-38 and kVp 120). 1.25 mm axial source images with a slice interval of 1.25-mm were reconstructed in lung windows. 2.5 mm axial source images with a slice interval of 2.5-mm were reconstructed in lung windows. 5.0 mm axial source images with a slice interval of 5.0-mm were reconstructed in soft tissue windows. COMPARISON: Comparison is made with prior study dated August 31, 2023. NODULES: No suspicious nodules are seen. Emphysema: Hyperinflation. Diffuse emphysematous changes with centrilobular changes more pronounced in the upper lobes. Focal scarring with bronchiectasis along the posterior aspect of the lingula segment of the left upper lobe. The previously seen focal area of scarring in the right middle lobe laterally is not seen at this time. Endobronchial lesion: None Aorta: Atherosclerotic plaque formation. CORONARY ARTERIES: Coronary artery calcification is not seen. Heart: Unremarkable Pulmonary artery: Unremarkable Mediastinal nodes: Unremarkable Other chest and abdominal findings: Small hiatal hernia. CT/Low Dose CT Lung Screening IMPRESSION: Lung-RADS category 2 - Continue annual screening with LDCT in 12 months. IMPORTANT NOTES FOR USE: ACR Lung-RADS Version 1.1 Assessment Categories Release Date: 2018 Category: Coded 0-4 bases on nodule(s) with highest degree of suspicion. Negative screen is defined as categories 1 and 2; a positive screen is defined as categories 3 and 4. Category 3 and 4A nodules that are unchanged on interval CT should be coded as category 2, and individuals returned to screening in 12 months. Category 4X: Category 3 or 4 nodules with additional imaging findings that increase the suspicion of lung cancer, such as spiculation, GGN that doubles in size in 1 year, enlarged lymph notes, etc. Category Modifiers: S (significant finding unrelated to lung cancer) Electronically Signed: Joaquim Montenegro MD at 14:18 EST ,
== END | disposition home or self-care (01) ==
LOC: CT 13:32
PROVIDERS: PCP Internal Medicine; Referring Provider Nurse Practitioner Family; Visit Provider Nurse Practitioner Family
DX: Z12.2 Encounter for screening for malignant neoplasm of respiratory organs (principal); Z87.891 Personal history of nicotine dependence
CPT/HCPCS: 71271

== ENCOUNTER 2024-12-21 11:44 | Inpatient (IN) | payer MEDICARE, SELFPAY ==
[2024-12-21] VITALS (18 sets, daily range): BP systolic 96–148; BP diastolic 54–84; PULSE 80–119; RESP 16–30; TEMP 36.1–36.9; O2SAT 80–100; BMI 36.5; BMI 30.4
--- NOTE | 2024-12-21 12:28 | RAD_ITS ---
PROCEDURE: CHEST 1 VIEW (PORTABLE) REASON FOR EXAM: Shortness of breath. TECHNIQUE: Frontal view of the chest. COMPARISON: 06/29/2024. FINDINGS: Lungs: Suspicion of subtle ground-glass opacities in the lower lobes. Pleura: No pleural effusions, thickening, or pneumothorax. Heart: Normal in size and configuration. Mediastinum/[place]: Unremarkable. Great vessels: Unremarkable. Bones/soft tissues: Unremarkable. Cardiac monitoring leads overlie the chest wall. RAD/Chest 1 View (Portable) IMPRESSION: Suspicion of ground-glass opacities in the lower lobes may indicate developing infiltrates. Reading Location: [place] [address]
--- NOTE | 2024-12-21 12:28 | EKG12_ITS ---
Test Reason : SOB Blood Pressure : */* mmHG Vent. Rate : 91 BPM Atrial Rate : 91 BPM P-R Int : 106 ms QRS Dur : 80 ms QT Int : 338 ms P-R-T Axes : 92 87 50 degrees QTcB Int : 415 ms Sinus rhythm with short AK Otherwise normal ECG BASELNE ARTIFACT Confirmed by Eulalio Willoughby ([id number]), senior editor EUGENE SANTOS ([id number]) on 12/22/2024 9:36:15 AM Referred By: Moisés Calle Confirmed By: Eulalio Willoughby
--- NOTE | 2024-12-21 12:29 | ED.VIS.DYS ---
HPI History of Present Illness Chief Complaint: Shortness of Breath Narrative Narrative: 64-year-old female past medical history of COPD wears 5 to 6 L of oxygen per nasal cannula at home, presents via EMS with increased shortness of breath and difficulty breathing. She states that she has chest tightness as well and has had it for the last 3 days. She uses MDIs at home including Advair. She states she has not taken steroids in a while and cannot recall the last time that she has been admitted for her breathing problems. She has occasional cough productive of phlegm. Additionally, she states that she intermittently smokes and has had maybe 3 cigarettes within the last week. She presents because of the increasing shortness of breath. [facility] Medical History Tobacco use disorder, continuous Encounter for screening for malignant neoplasm of lung Pneumonia Secondary polycythemia COPD (chronic obstructive pulmonary disease) Home Medications ?Medication ?Instructions ?Recorded ?Last Taken ?Type alprazolam 0.25 mg tablet 0.25 mg PO TID PRN PRN 07/02/24 Unknown Rx Anxiety/Restlessness/Sleep #20 tabs fluticasone propionate 230 2 inh inhalation BID #3 ea 10/12/24 Unknown Rx mcg-salmeterol 21 mcg/actuation HFA inhaler (Advair HFA) montelukast 10 mg tablet 10 mg PO QPM #90 tabs 10/12/24 Unknown Rx tiotropium bromide 2.5 2 puff inhalation ONCE #4 grams 10/12/24 Unknown Rx mcg/actuation mist for inhalation (Spiriva Respimat) Allergy/AdvReac Type Severity Reaction Status Date / Time No Known Allergies Allergy Verified 12/21/24 11:55 Family History Sister Breast cancer Father Lung cancer Mother Brain aneurysm Colon cancer Surgical History History of right hip replacement Social History household members: children housing: house current occupational status: disabled Smoking Status: Current every day smoker tobacco type: cigarettes Tobacco: How many years used: 50 Electronic Cigarette Use: not used how long ago did patient quit smokin.5-2ppd x 50yrs alcohol intake: former details: used to drink a lot on the weekends substance use type: does not use caffeine: Yes (2) Type: carbonated beverages what type of physical activity do you participate in: none seatbelt use: always do you feel safe at home: Yes ROS ROS ED ROS Narrative Constitutional: No fever, no chills. HEENT: No sore throat. No neck pain. No rhinorrhea. Cardiovascular: No chest pain. No palpitations. No pedal edema. Respiratory: Positive cough, increasing shortness of breath. Positive chest tightness. Abdominal: No abdominal pain. No nausea. No vomiting. Genitourinary: No dysuria. No hematuria. Musculoskeletal: No myalgias. No arthralgias. Neurologic: No headaches. No dizziness. No lightheadedness. Skin: No rash. No change in color. Psychiatric: No depression. No anxiety. EXAM Physical Exam Narrative Exam Narrative: Afebrile. Vital signs noted. Nontoxic-appearing. Cardiovascular examination reveals a regular tachycardia. Moving a fair amount of air with expiratory wheezes bilaterally. Decreased breath sounds bilateral bases. Abdomen soft and nontender. Positive bilateral lower extremity edema with chronic lymphedema changes. Neurological examination nonfocal and nonlateralizing. Const Vital Signs: 12/21/24 11:44 12/21/24 11:49 12/21/24 11:49 Temperature 97.0 F L 97 F L Temperature Source Temporal Temporal Pulse Rate 114 H 114 H Respiratory Rate 30 H 30 H Respiratory Effort Respiratory Depth Respiratory Pattern Blood Pressure 148/65 H 148/65 H Blood Pressure Mean 92 92 Pulse Ox 95 80 100 Oxygen Delivery Method Nasal Cannula Room Air High Flow Oxygen Flow Rate (L/min) 6 Fraction of Inspired Oxygen (FIO2) 12/21/24 11:56 12/21/24 12:20 12/21/24 12:45 Temperature Temperature Source Pulse Rate 96 Respiratory Rate 16 Respiratory Effort Short of Breath Labored Respiratory Depth Shallow Respiratory Pattern Tachypnea Blood Pressure Blood Pressure Mean Pulse Ox 98 Oxygen Delivery Method Oxygen Flow Rate (L/min) Fraction of Inspired Oxygen (FIO2) 40 12/21/24 12:47 12/21/24 12:47 12/21/24 12:59 Temperature 97.5 F L Temperature Source Temporal Pulse Rate 92 100 Respiratory Rate 25 H 19 H Respiratory Effort Respiratory Depth Respiratory Pattern Blood Pressure 97/68 97/65 Blood Pressure Mean 77 75 Pulse Ox 100 99 94 Oxygen Delivery Method Airvo Airvo Airvo Oxygen Flow Rate (L/min) Fraction of Inspired Oxygen (FIO2) 12/21/24 13:14 12/21/24 14:04 12/21/24 15:00 Temperature 98.4 F Temperature Source Oral Pulse Rate 119 H 80 Respiratory Rate 22 H 17 Respiratory Effort Respiratory Depth Respiratory Pattern Blood Pressure 96/66 119/84 H Blood Pressure Mean 76 95 Pulse Ox 99 99 93 Oxygen Delivery Method High Flow High Flow Nasal Cannula Oxygen Flow Rate (L/min) 6 6 6 Fraction of Inspired Oxygen (FIO2) 12/21/24 16:53 Temperature Temperature Source Pulse Rate 109 H Respiratory Rate 22 H Respiratory Effort Respiratory Depth Respiratory Pattern Tachypnea Blood Pressure Blood Pressure Mean Pulse Ox Oxygen Delivery Method Oxygen Flow Rate (L/min) Fraction of Inspired Oxygen (FIO2) MDM MDM MDM Narrative Medical decision making narrative: Differential diagnosis includes but not limited to pneumonia versus pneumothorax versus COPD exacerbation. I have low suspicion for CHF because does not part of her history. EKG was obtained and interpreted by myself independently as normal sinus rhythm at 91 bpm without ectopy or acute ST changes. No STEMI. There is baseline artifact. Patient administered DuoNeb aerosolized treatment as well as Solu-Medrol 125 mg intravenously. I reviewed her laboratory work and she has normal white count of 4.4 with hemoglobin 12.6, hematocrit 39.0, platelet count 167. Sodium is normal at 142 with potassium 4.3, chloride low at 93 which I think is nonspecific. Glucose is elevated at 121 with a normal anion gap of 7. BUN normal at 8 and creatinine 0.5. Chest x-ray in 1 view interpreted by myself shows groundglass appearance of the bilateral lobes. I do not see a consolidation. No pneumothorax. I reviewed the radiology report which also comments on groundglass appearance and possible infiltrates developing. Respiratory swabs are negative for COVID, influenza, and RSV. I deferred antibiotics at this time as she has no white count or fever. Upon repeat examination, she remains moving a fair amount of air with decreased breath sounds and expiratory wheezing. She was given another DuoNeb aerosolized treatment but prior she got up and desaturated on her home oxygen of 5 L to 88. Given her chronic respiratory failure with hypoxia and COPD exacerbation, I discussed patient with Dr. Peña for admission. Patient is in stable condition. History & Record Review Discussion w/independent historian: Patient Lab Data Attestation: I reviewed the patient's lab results. Labs: Laboratory Results - last 24 hr 12/21/24 11:58 WBC 4.4 RBC 4.23 Hgb 12.6 Hct 39.0 MCV 92.2 MCH 29.8 MCHC 32.3 RDW Std Deviation 44.8 H RDW Coeff of Nick 13.3 Plt Count 167 MPV 9.2 Immature Gran % (Auto) 0.500 Neut % (Auto) 73.9 H Lymph % (Auto) 17.3 L [place] % (Auto) 6.4 Eos % (Auto) 1.4 Baso % (Auto) 0.5 Absolute Neuts (auto) 3.3 Absolute Lymphs (auto) 0.76 L Nucleated RBC % 0 Sodium 142 Potassium 4.3 Chloride Direct 93 L Carbon Dioxide 41.2 H Anion Gap 7 BUN 8 Creatinine 0.5 L Estim Creat Clear Calc 81.95 Est GFR (MDRD) Non-Af 103 BUN/Creatinine Ratio 15.2 Glucose 121 H Calcium 9.6 Radiography Diagnostic Testing: Clinical Impression(s) from Imaging Studies Chest X-Ray 12/21/24 12:28 IMPRESSION: Suspicion of ground-glass opacities in the lower lobes may indicate developing infiltrates. Reading Location: [place] [address] Management Discussion w/another healthcare provider: Hospitalist (Dr. Peña) Discharge Plan Dx/Rx/DC Orders Clinical Impression: Chronic respiratory failure with hypoxia, COPD with acute exacerbation, Dyspnea Disposition Disposition: Acute Care [facility]
[2024-12-21] MEDS: Ipratropium/Albuterol Sulfate 3 ML AMPUL.NEB INHALATION ×4 (12:39→22:53)
[2024-12-21 12:49] LABS: Absolute Lymphocyte Count 0.76 X10^3/uL (0.83-4.51); Absolute Neutrophil Count 3.3 X10^3/uL (2.0-7.7); Basophil# 0.02 X10^3/uL; Basophil% 0.5 % (0-1); Eosinophil# 0.06 X10^3/uL; Eosinophils% 1.4 % (0-5); Hemoglobin 12.6 g/dL (12.0-15.0); Lymphocyte # 0.76 X10^3/ul (0.83-4.51); Lymphocyte % 17.3 % (19-41); Mean Corp Hgb Conc 32.3 g/dL (32-36); Mean Corpuscular Hgb 29.8 pg (27.0-32.0); Mean Corpuscular Volume 92.2 fL (81-99); Mean Platelet Vol. 9.2 fl (6.2-12.0); Monocyte# 0.28 X10^3/uL; Monocyte% 6.4 % (0-10); NRBC Flagged by Analyzer 0 % (0-5); Neutrophil # 3.26 X10^3/uL (2.7-7.7); Neutrophil % 73.9 % (47-70); Platelet Count 167 K/mm3 (150-450); RBC Distribution Width CV 13.3 % (11.6-14.6); RBC Distribution Width SD 44.8 fl (35.1-43.9); Red Blood Count 4.23 M/mm3 (4.2-5.4); White Blood Count 4.4 K/mm3 (4.4-11.0)
[2024-12-21] MEDS: MethylPREDNISolone 125 MG/2 ML Vial IV (12:52)
[2024-12-21 13:09] LABS: Anion Gap 7 (5-15); BUN 8 mg/dL (4-19); BUN/Creat Ratio 15.2 RATIO (10-20); Calcium 9.6 mg/dL (7.6-11.0); Carbon Dioxide 41.2 mmol/L (22.0-29.0); Chloride 93 mmol/L (96-108); Creatinine, Serum 0.5 mg/dL (0.6-1.0); EST Glomerular Filtration Rate 103 (>60); Estimated Creatinine Clearance 81.95 ml/min; Glucose 121 mg/dL (70-99); Potassium 4.3 mmol/L (3.3-5.1); Sodium Level 142 mmol/L (133-145)
--- NOTE | 2024-12-21 17:18 | PCM.HP.STD ---
[facility] - General General Date of Service: 12/21/24 Chief Complaint: Shortness of breath [facility] Narrative DOUG DE LA TORRE, is a 64 F who presents with 2 days of shortness of breath. Patient has a history of COPD and is on chronic oxygen at 5 L/min. Patient has been short of breath with cough. Presented to the emergency room and was increased to 6 L nasal cannula. Underwent infectious workup for COVID, influenza and RSV that was negative.She was diagnosed COPD exacerbation and received bronchodilators and methylprednisolone. The hospital service was contacted for admission. [facility] Medical History Tobacco use disorder, continuous Encounter for screening for malignant neoplasm of lung Pneumonia Secondary polycythemia COPD (chronic obstructive pulmonary disease) Home Medications ?Medication ?Instructions ?Recorded ?Last Taken ?Type alprazolam 0.25 mg tablet 0.25 mg PO TID PRN PRN 07/02/24 Unknown Rx Anxiety/Restlessness/Sleep #20 tabs fluticasone propionate 230 2 inh inhalation BID #3 ea 10/12/24 Unknown Rx mcg-salmeterol 21 mcg/actuation HFA inhaler (Advair HFA) montelukast 10 mg tablet 10 mg PO QPM #90 tabs 10/12/24 Unknown Rx tiotropium bromide 2.5 2 puff inhalation ONCE #4 grams 10/12/24 Unknown Rx mcg/actuation mist for inhalation (Spiriva Respimat) Allergy/AdvReac Type Severity Reaction Status Date / Time No Known Allergies Allergy Verified 12/21/24 11:55 Family History Sister Breast cancer Father Lung cancer Mother Brain aneurysm Colon cancer Surgical History History of right hip replacement Social History household members: children housing: house current occupational status: disabled Smoking Status: Current every day smoker tobacco type: cigarettes Tobacco: How many years used: 50 Electronic Cigarette Use: not used how long ago did patient quit smokin.5-2ppd x 50yrs alcohol intake: former details: used to drink a lot on the weekends substance use type: does not use caffeine: Yes (2) Type: carbonated beverages what type of physical activity do you participate in: none seatbelt use: always do you feel safe at home: Yes ROS ROS Narrative Chronic lower extremity edema. No change. All review of systems were negative except as mentioned above in the history of present illness and the other review of systems. Vital Signs Vital Signs Vital Signs: 12/21/24 11:44 12/21/24 11:49 12/21/24 11:49 Temperature 36.1 C L 36.1 C L Temperature Source Temporal Temporal Pulse Rate 114 H 114 H Respiratory Rate 30 H 30 H Respiratory Effort Respiratory Depth Respiratory Pattern Blood Pressure 148/65 H 148/65 H Blood Pressure Mean 92 92 Pulse Ox 95 80 100 Oxygen Delivery Method Nasal Cannula Room Air High Flow Oxygen Flow Rate (L/min) 6 Fraction of Inspired Oxygen (FIO2) 12/21/24 11:56 12/21/24 12:20 12/21/24 12:45 Temperature Temperature Source Pulse Rate 96 Respiratory Rate 16 Respiratory Effort Short of Breath Labored Respiratory Depth Shallow Respiratory Pattern Tachypnea Blood Pressure Blood Pressure Mean Pulse Ox 98 Oxygen Delivery Method Oxygen Flow Rate (L/min) Fraction of Inspired Oxygen (FIO2) 40 12/21/24 12:47 12/21/24 12:47 12/21/24 12:59 Temperature 36.4 C L Temperature Source Temporal Pulse Rate 92 100 Respiratory Rate 25 H 19 H Respiratory Effort Respiratory Depth Respiratory Pattern Blood Pressure 97/68 97/65 Blood Pressure Mean 77 75 Pulse Ox 100 99 94 Oxygen Delivery Method Airvo Airvo Airvo Oxygen Flow Rate (L/min) Fraction of Inspired Oxygen (FIO2) 12/21/24 13:14 12/21/24 14:04 12/21/24 15:00 Temperature 36.9 C Temperature Source Oral Pulse Rate 119 H 80 Respiratory Rate 22 H 17 Respiratory Effort Respiratory Depth Respiratory Pattern Blood Pressure 96/66 119/84 H Blood Pressure Mean 76 95 Pulse Ox 99 99 93 Oxygen Delivery Method High Flow High Flow Nasal Cannula Oxygen Flow Rate (L/min) 6 6 6 Fraction of Inspired Oxygen (FIO2) 12/21/24 16:53 Temperature Temperature Source Pulse Rate 109 H Respiratory Rate 22 H Respiratory Effort Respiratory Depth Respiratory Pattern Tachypnea Blood Pressure Blood Pressure Mean Pulse Ox Oxygen Delivery Method Oxygen Flow Rate (L/min) Fraction of Inspired Oxygen (FIO2) Weight Weight: 99.6 kg Body Mass Index (BMI) 36.5 Physical Exam Const alert and no apparent distress Constitutional Narrative: Peers older than stated age. No respiratory distress. No conversational dyspnea. Receiving breathing treatment. HEENT normocephalic and head/scalp atraumatic Resp normal respiratory effort and no retractions Resp Narrative: Diminished breath sounds throughout Cardio regular rate, regular rhythm, S1 normal heart sound and S2 normal heart sound GI normal to inspection, nondistended, normoactive bowel sounds, soft to palpation, non-tender and non-distended Extremity Extremity Narrative: Venous stasis changes to the lower extremities. Neuro moves all extremities Sensorium / Orientation: awake and alert Psych affect normal Results Lab / Micro Data Attestation: I reviewed the patient's lab results. 12/21/24 11:58 12/21/24 11:58 Labs: Laboratory Results - last 24 hr 12/21/24 11:58: WBC 4.4, RBC 4.23, Hgb 12.6, Hct 39.0, MCV 92.2, MCH 29.8, MCHC 32.3, RDW Std Deviation 44.8 H, RDW Coeff of Nick 13.3, Plt Count 167, MPV 9.2, Immature Gran % (Auto) 0.500, Neut % (Auto) 73.9 H, Lymph % (Auto) 17.3 L, [place] % (Auto) 6.4, Eos % (Auto) 1.4, Baso % (Auto) 0.5, Absolute Neuts (auto) 3.3, Absolute Lymphs (auto) 0.76 L, Nucleated RBC % 0, Sodium 142, Potassium 4.3, Chloride Direct 93 L, Carbon Dioxide 41.2 H, Anion Gap 7, BUN 8, Creatinine 0.5 L, Estim Creat Clear Calc 81.95, Est GFR (MDRD) Non-Af 103, BUN/Creatinine Ratio 15.2, Glucose 121 H, Calcium 9.6 Micro: Microbiology 12/21/24 12:54 Mucosa - Nose SARS-CoV-2, Influenza & RSV (PCR) - Final Imaging Radiology Impression Chest X-Ray 12/21/24 12:28 IMPRESSION: Suspicion of ground-glass opacities in the lower lobes may indicate developing infiltrates. Reading Location: [facility] Assessment & Plan Assessment/Plan (1) COPD with acute exacerbation: PLAN: No clear viral infection and no evidence of any pneumonia. Plan is for treatment with bronchodilators and methylprednisolone. Wean oxygen as tolerated to her baseline. PLAN: Plan VTE prophylaxis with enoxaparin CODE STATUS: Addressed with the patient. Patient wishes to be full code. Charges/Coding Visit Charges Inpatient E&M: 53748 Init Hosp L2
[2024-12-21] MEDS: Nystatin Powder 15gm Bottle 1 APPLIC TOPICAL (22:03)
[2024-12-21] MEDS: 0.9% Saline Lock 10 ML Syringe IV (22:03)
[2024-12-21] MEDS: Montelukast 10 MG Tablet PO (22:03)
[2024-12-22] VITALS (11 sets, daily range): BP systolic 90–138; BP diastolic 33–67; PULSE 91–114; RESP 16–20; TEMP 36.2–37; O2SAT 90–97
[2024-12-22] MEDS: Ipratropium/Albuterol Sulfate 3 ML AMPUL.NEB INHALATION ×5 (03:26→20:26)
[2024-12-22] MEDS: Benzonatate 100 MG Capsule PO (04:12)
[2024-12-22] MEDS: 0.9% Saline Lock 10 ML Syringe IV ×2 (05:17→14:45)
--- NOTE | 2024-12-22 08:33 | PCM.PN.HOSP ---
Reason for Visit Reason for Visit: Shortness of breath Subjective Subjective Patient states she feels about the same. Infectious workup was unremarkable. Wears 5 L to 6 L of oxygen at rest at home. Currently on 5 L and seems to be tolerating well. Objective Data Objective Data Vital Signs: Vital Signs Temp Pulse Resp BP Pulse Ox O2 Del Method O2 Flow Rate 97.2 F L 94 20 H 97/65 94 High Flow 8 12/22/24 03:26 12/22/24 03:26 12/22/24 03:26 12/22/24 03:48 12/22/24 03:26 12/22/24 03:35 12/22/24 03:35 FiO2 40 12/21/24 12:20 Oxygen Flow Rate (L/min) 8 Oxygen Delivery Method High Flow Weight: 85.635 kg Body Mass Index (BMI) 30.4 Intake & Output: Intake and Output for Last 24 Hours 12/20/24 12/21/24 12/22/24 23:59 23:59 23:59 Intake Total 440 / 440 Output Total 300 / 300 Balance 140 / 140 Lab / Micro Data 12/21/24 11:58 12/21/24 11:58 Labs: Laboratory Results - last 24 hr 12/21/24 11:58: WBC 4.4, RBC 4.23, Hgb 12.6, Hct 39.0, MCV 92.2, MCH 29.8, MCHC 32.3, RDW Std Deviation 44.8 H, RDW Coeff of Nick 13.3, Plt Count 167, MPV 9.2, Immature Gran % (Auto) 0.500, Neut % (Auto) 73.9 H, Lymph % (Auto) 17.3 L, [place] % (Auto) 6.4, Eos % (Auto) 1.4, Baso % (Auto) 0.5, Absolute Neuts (auto) 3.3, Absolute Lymphs (auto) 0.76 L, Nucleated RBC % 0, Sodium 142, Potassium 4.3, Chloride Direct 93 L, Carbon Dioxide 41.2 H, Anion Gap 7, BUN 8, Creatinine 0.5 L, Estim Creat Clear Calc 81.95, Est GFR (MDRD) Non-Af 103, BUN/Creatinine Ratio 15.2, Glucose 121 H, Calcium 9.6 Micro: Microbiology 12/21/24 12:54 Mucosa - Nose SARS-CoV-2, Influenza & RSV (PCR) - Final Radiography Diagnostic Testing: Radiology Impression Chest X-Ray 12/21/24 12:28 IMPRESSION: Suspicion of ground-glass opacities in the lower lobes may indicate developing infiltrates. Reading Location: [place] [address] Physical Exam Const alert, oriented x3, no apparent distress and well nourished; Negative for average body habitus or healthy appearing Constitutional Narrative: Obese, disheveled, upper middle-aged, white female, sitting on the edge of the bed, son at bedside, patient appears older than stated age, appears comfortable, does not appear toxic, no signs of extremis HEENT head/scalp atraumatic and moist oral mucous membranes HEENT Narrative: Dentition is poor, Mallampati is 2, no thrush Head and Scalp: normocephalic Resp normal respiratory effort, no retractions, no use of accessory muscles and clear to auscultation bilaterally Resp Narrative: Diffusely diminished with few scattered and expiratory wheezes Auscultation: wheezes; Negative for rales or rhonchi Cardio regular rhythm, S1 normal heart sound, S2 normal heart sound, no murmurs, no rub, no gallops and no clicks Cardio Narrative: Mild tachycardia GI normal to inspection, nondistended, normoactive bowel sounds, soft to palpation and non-tender Extremity no clubbing, cyanosis or edema Extremity Narrative: Pedal pulses and radial pulses are 2+ Neuro oriented x3, moves all extremities and no focal motor deficits Speech: speech normal Psych Psych Narrative: Affect is slightly flat but patient interacts appropriately Assessment & Plan Assessment/Plan (1) Dyspnea: (2) COPD with acute exacerbation: PLAN: Plan Acute shortness of breath with chronic hypoxic respiratory failure secondary to acute exacerbation of COPD -Baseline oxygen is 5 to 6 L and she remains on 5 to 6 L however becomes very winded with exertion -COVID/flu/RSV/respiratory viral panel all negative -Continue Solu-Medrol 40 every 8 with plans for long taper at discharge -Continue aggressive pulmonary toilet -Add incentive spirometer -Add Acapella -Add Mucinex -Plan for amatory pulse ox tomorrow and possible discharge if stable -Patient is still smoking -ABG was performed today due to markedly elevated bicarbonate and it does show she is a chronic CO2 retainer with a baseline pCO2 between 65 and 75 and appropriate compensation History of COPD -Patient with chronic hypoxemia -Hold home inhalers and restart at discharge -Recommend ongoing outpatient pulmonary medicine follow-up Moderate obstructive sleep apnea -Patient noncompliant with BiPAP as recommended at 05/29 with 2.5 L titration while sleeping -Recommend repeat evaluation as an outpatient Secondary polycythemia secondary to tobacco abuse -Stable Ongoing tobacco abuse -Highly recommend cessation -Nicotine patch available if needed Obesity -BMI 30.5 -Recommend weight loss -Complicates treatment, prognosis, outcomes DVT prophylaxis -Continue subcu Lovenox 40 daily CODE STATUS -Full code as verified on admission Charges/Coding Visit Charges Inpatient E&M: 15383 Subs Hosp L2
[2024-12-22] MEDS: Enoxaparin 40 MG/0.4 ML Syringe SC (08:36)
[2024-12-22] MEDS: Nystatin Powder 15gm Bottle 1 APPLIC TOPICAL ×2 (08:37→22:10)
[2024-12-22 09:10] LABS: Allen Test Positive; Base Excess 18 mmol/L (-2 to +2); Bicarbonate 42.8 mmol/L (22-26); Blood Gas Specimen Type ART; Mode Not entered; O2 Delivery Device Cannula; PO2 48 mmHG (75-100); SITE R Radial; SO2 80 % (95-99); Total Carbon Dioxide 45 mmol/L; pCO2 72.3 mmHg (35-45); pH 7.38 (7.35-7.45)
--- NOTE | 2024-12-22 10:40 | CASEMGMT ---
GRACIE LICONA Face to Face with patient for initial transition planning/care coordination assessment. RN CM introduced self and role at [facility]. Patient lying in bed, alert and oriented. Patient willing to participate in assessment and is able to answer all questions appropriately. Care providers, pharmacy, and demographics verified. Strata: 2 PCP: Shira Specialists: Olamide Brian, 3d modeler; Crystal, oncologist Preferred Pharmacy: [facility] Retail Insurance: [facility], Prescription Benefit: none Living Will/HPOA: yes, sister Demi Jennings LNOK: son, sister Living Arrangements: Danny lives with son in a single story home with 6 steps to enter. Patient is independent at home. Transportation: son, hospital van DME/HHC: Patient has raised toilet, cpap, pulse ox, and home oxygen through [employer]. Patient would benefit from walker at discharge. Patient wishes to discharge home, discuss HHC vs CCN. Patient is agreeable to CCN at discharge. RN CM made referral. Patient states she has no further needs or concerns at this time. CM to follow for discharge planning needs that may arise. Disposition Plan: Patient to discharge home with CCN, family support, and follow-up plans in place. Rosemarie ASCENCIO, RN, CM
[2024-12-22] MEDS: guaiFENesin 1,200 MG Tablet 1200 MG PO ×2 (11:07→22:10)
[2024-12-22] MEDS: BENZOCAINE/MENTHOL 1 LOZENGE MUCOUS MEM (16:53)
[2024-12-22] MEDS: ALPRAZolam 0.25 MG Tablet PO (20:21)
[2024-12-22] MEDS: Montelukast 10 MG Tablet PO (22:10)
[2024-12-23] VITALS (14 sets, daily range): BP systolic 102–123; BP diastolic 55–83; PULSE 72–112; RESP 16–22; TEMP 36.6–36.9; O2SAT 90–97
[2024-12-23] MEDS: Ipratropium/Albuterol Sulfate 3 ML AMPUL.NEB INHALATION ×5 (00:57→19:11)
[2024-12-23] MEDS: BENZOCAINE/MENTHOL 1 LOZENGE MUCOUS MEM (01:18)
[2024-12-23] MEDS: 0.9% Saline Lock 10 ML Syringe IV ×4 (05:35→20:20)
[2024-12-23] MEDS: Acetaminophen 325 MG Tablet 650 MG PO ×2 (05:43→20:21)
[2024-12-23 06:44] LABS: Hematocrit 33.8 % (37-47); Mean Corp Hgb Conc 32.5 g/dL (32-36); Mean Corpuscular Volume 92.1 fL (81-99); Mean Platelet Vol. 9.8 fl (6.2-12.0); Platelet Count 203 K/mm3 (150-450); RBC Distribution Width CV 13.2 % (11.6-14.6); RBC Distribution Width SD 44.6 fl (35.1-43.9); Red Blood Count 3.67 M/mm3 (4.2-5.4)
[2024-12-23 07:09] LABS: Anion Gap 8 (5-15); BUN 11 mg/dL (4-19); BUN/Creat Ratio 21.4 RATIO (10-20); Calcium 9.6 mg/dL (7.6-11.0); Carbon Dioxide 36.4 mmol/L (22.0-29.0); Chloride 97 mmol/L (96-108); Creatinine, Serum 0.51 mg/dL (0.70-1.20); EST Glomerular Filtration Rate 104 (>60); Estimated Creatinine Clearance 77.29 ml/min; Glucose 135 mg/dL (70-99); Potassium 4.2 mmol/L (3.3-5.1); Sodium Level 141 mmol/L (133-145)
[2024-12-23] MEDS: Enoxaparin 40 MG/0.4 ML Syringe SC (09:35)
[2024-12-23] MEDS: guaiFENesin 1,200 MG Tablet 1200 MG PO ×2 (09:35→20:21)
[2024-12-23] MEDS: Nystatin Powder 15gm Bottle 1 APPLIC TOPICAL ×2 (09:35→20:22)
--- NOTE | 2024-12-23 18:21 | PCM.PN.HOSP ---
Reason for Visit Reason for Visit: Shortness of breath Subjective Subjective Patient states she feels much better today but still with some exertional dyspnea. Wears 5 to 6 L at baseline. Objective Data Objective Data Vital Signs: Vital Signs Temp Pulse Resp BP Pulse Ox O2 Del Method O2 Flow Rate 98 F 77 18 118/83 H 95 High Flow 6 12/23/24 17:20 12/23/24 17:20 12/23/24 17:20 12/23/24 17:20 12/23/24 17:20 12/23/24 17:22 12/23/24 17:22 FiO2 40 12/21/24 12:20 Oxygen Flow Rate (L/min) 6 Oxygen Delivery Method High Flow Weight: 85.635 kg Body Mass Index (BMI) 30.4 Intake & Output: Intake and Output for Last 24 Hours 12/21/24 12/22/24 12/23/24 23:59 23:59 23:59 Intake Total 440 / 440 Output Total 300 / 300 Balance 140 / 140 Lab / Micro Data 12/23/24 06:06 12/23/24 06:06 Labs: Laboratory Results - last 24 hr 12/23/24 06:06: WBC 11.0, RBC 3.67 L, Hgb 11.0 L, Hct 33.8 L, MCV 92.1, MCH 30.0, MCHC 32.5, RDW Std Deviation 44.6 H, RDW Coeff of Nick 13.2, Plt Count 203, MPV 9.8, Sodium 141, Potassium 4.2, Chloride Direct 97, Carbon Dioxide 36.4 H, Anion Gap 8, BUN 11, Creatinine 0.51 L, Estim Creat Clear Calc 77.29, Est GFR (MDRD) Non-Af 104, BUN/Creatinine Ratio 21.4 H, Glucose 135 H, Calcium 9.6 Micro: Microbiology 12/22/24 08:52 Mucosa - Nasopharyngeal Respiratory Panel (PCR) - Final 12/21/24 12:54 Mucosa - Nose SARS-CoV-2, Influenza & RSV (PCR) - Final Physical Exam Const alert, oriented x3, no apparent distress and well nourished; Negative for average body habitus or healthy appearing Constitutional Narrative: Obese, disheveled, upper middle-aged, white female, sitting up on the bathroom, appears comfortable, nontoxic HEENT normocephalic, head/scalp atraumatic and moist oral mucous membranes HEENT Narrative: Mallampati 2-3, no thrush Resp normal respiratory effort, no retractions, no use of accessory muscles and clear to auscultation bilaterally Resp Narrative: Diffuse scattered and expiratory wheezes with improved air movement last 24 hours Auscultation: wheezes; Negative for rales or rhonchi Cardio regular rate, regular rhythm, S1 normal heart sound, S2 normal heart sound, no murmurs, no rub, no gallops and no clicks GI normal to inspection, nondistended, normoactive bowel sounds, soft to palpation and non-tender Extremity no clubbing, cyanosis or edema Extremity Narrative: Pedal pulses and radial pulses are 2+ Neuro oriented x3, moves all extremities and no focal motor deficits Speech: speech normal Psych affect normal Psych Narrative: More interactive Assessment & Plan Assessment/Plan (1) Dyspnea: (2) COPD with acute exacerbation: PLAN: Plan Acute shortness of breath with chronic hypoxic respiratory failure secondary to acute exacerbation of COPD -Baseline oxygen is 5 to 6 L and she remains on 5 to 6 L however becomes very winded with exertion -Ambulatory pulse ox prior to discharge -COVID/flu/RSV/respiratory viral panel all negative -Continue Solu-Medrol 40 every 8 with plans for long taper at discharge -Continue aggressive pulmonary toilet -Continue incentive spirometer -Continue Acapella -Continue Mucinex -Will give Lasix x 1 dose -Patient is still smoking -ABG was performed today due to markedly elevated bicarbonate and it does show she is a chronic CO2 retainer with a baseline pCO2 between 65 and 75 and appropriate compensation History of COPD -Patient with chronic hypoxemia -Hold home inhalers and restart at discharge -Recommend ongoing outpatient pulmonary medicine follow-up Moderate obstructive sleep apnea -Patient noncompliant with BiPAP as recommended at 05/29 with 2.5 L titration while sleeping -Recommend repeat evaluation as an outpatient Secondary polycythemia secondary to tobacco abuse -Stable Ongoing tobacco abuse -Highly recommend cessation -Nicotine patch available if needed Obesity -BMI 30.5 -Recommend weight loss -Complicates treatment, prognosis, outcomes DVT prophylaxis -Continue subcu Lovenox 40 daily CODE STATUS -Full code as verified on admission Charges/Coding Visit Charges Inpatient E&M: 42630 Subs Hosp L2
[2024-12-23] MEDS: Furosemide 40 MG/4 ML Vial IV (18:44)
[2024-12-23] MEDS: Montelukast 10 MG Tablet PO (20:21)
[2024-12-23] MEDS: Albuterol 2.5 MG/3 ML VIAL.NEB. INHALATION (23:57)
[2024-12-24] VITALS (12 sets, daily range): BP systolic 101–119; BP diastolic 57–85; PULSE 83–110; RESP 18–22; TEMP 36.6–37.2; O2SAT 88–98
[2024-12-24] MEDS: BENZOCAINE/MENTHOL 1 LOZENGE MUCOUS MEM ×2 (04:16→19:42)
[2024-12-24] MEDS: 0.9% Saline Lock 10 ML Syringe IV ×4 (04:16→22:18)
[2024-12-24] MEDS: Acetaminophen 325 MG Tablet 650 MG PO ×2 (04:16→19:47)
[2024-12-24] MEDS: Albuterol 2.5 MG/3 ML VIAL.NEB. INHALATION (04:33)
[2024-12-24] MEDS: Ipratropium/Albuterol Sulfate 3 ML AMPUL.NEB INHALATION ×3 (07:35→20:02)
[2024-12-24] MEDS: guaiFENesin 1,200 MG Tablet 1200 MG PO ×2 (10:13→22:18)
[2024-12-24] MEDS: Enoxaparin 40 MG/0.4 ML Syringe SC (10:13)
[2024-12-24] MEDS: Nystatin Powder 15gm Bottle 1 APPLIC TOPICAL ×2 (10:13→22:19)
--- NOTE | 2024-12-24 14:20 | PCM.PN.HOSP ---
Reason for Visit Reason for Visit: Shortness of breath Subjective Subjective Patient states that overall she feels better at about 70% but still feels like she gets really congested is already on Mucinex. No specific chest pain but just feels like it is tightness and congestion. States she still gets really exertional dyspneic. Objective Data Objective Data Vital Signs: Vital Signs Temp Pulse Resp BP Pulse Ox O2 Del Method O2 Flow Rate 98.5 F 92 20 H 119/72 98 Nasal Cannula 5 12/24/24 12:30 12/24/24 12:30 12/24/24 12:30 12/24/24 12:30 12/24/24 12:30 12/24/24 12:30 12/24/24 12:30 FiO2 40 12/21/24 12:20 Oxygen Flow Rate (L/min) 5 Oxygen Delivery Method Nasal Cannula Weight: 85.635 kg Body Mass Index (BMI) 30.4 Intake & Output: Intake and Output for Last 24 Hours 12/22/24 12/23/24 12/24/24 23:59 23:59 23:59 Intake Total 440 / 440 760 / 760 Output Total 300 / 300 300 / 300 Balance 140 / 140 460 / 460 Lab / Micro Data 12/23/24 06:06 12/23/24 06:06 Micro: Microbiology 12/22/24 08:52 Mucosa - Nasopharyngeal Respiratory Panel (PCR) - Final 12/21/24 12:54 Mucosa - Nose SARS-CoV-2, Influenza & RSV (PCR) - Final Physical Exam Const alert, oriented x3, no apparent distress and well nourished; Negative for average body habitus or healthy appearing Constitutional Narrative: Obese, disheveled, upper middle-aged, white female, lying in bed, appears comfortable, nontoxic HEENT normocephalic, head/scalp atraumatic and moist oral mucous membranes HEENT Narrative: Dentition is poor, Mallampati is 3, no thrush Resp normal respiratory effort, no retractions, no use of accessory muscles and clear to auscultation bilaterally Resp Narrative: Air movement has improved and more wheezing present today Auscultation: wheezes; Negative for rales or rhonchi Cardio regular rate, regular rhythm, S1 normal heart sound, S2 normal heart sound, no murmurs, no rub, no gallops and no clicks GI normal to inspection, nondistended, normoactive bowel sounds, soft to palpation and non-tender Extremity no clubbing, cyanosis or edema Extremity Narrative: Trace bilateral lower extremity edema that is pitting in nature, no cyanosis or clubbing Neuro oriented x3, moves all extremities and no focal motor deficits Speech: speech normal Psych Psych Narrative: Eye contact is good, patient interacts appropriately, affect is slightly flat Assessment & Plan Assessment/Plan (1) Dyspnea: (2) COPD with acute exacerbation: PLAN: Plan Acute shortness of breath with chronic hypoxic respiratory failure secondary to acute exacerbation of COPD -Baseline oxygen is 5 to 6 L and she remains on 5 to 6 L patient still markedly dyspneic with exertion which is why she requires continued hospitalization -Ambulatory pulse ox prior to discharge -COVID/flu/RSV/respiratory viral panel all negative -Continue Solu-Medrol 40 every 8 with plans for long taper at discharge with prednisone at discharge -Continue aggressive pulmonary toilet -Continue incentive spirometer -Continue Acapella -Continue Mucinex -Will give another one-time dose of Lasix -Patient is still smoking History of COPD -Patient with chronic hypoxemia -Hold home inhalers and restart at discharge -Recommend ongoing outpatient pulmonary medicine follow-up Moderate obstructive sleep apnea -Patient noncompliant with BiPAP as recommended at 05/29 with 2.5 L titration while sleeping -Recommend repeat evaluation as an outpatient History of secondary polycythemia secondary to tobacco abuse -Hemoglobin is currently stable -Suspect this may have been prior to patient being on continuous oxygen Ongoing tobacco abuse -Highly recommend cessation -Nicotine patch available if needed Obesity -BMI 30.5 -Recommend weight loss -Complicates treatment, prognosis, outcomes DVT prophylaxis -Continue subcu Lovenox 40 daily CODE STATUS -Full code as verified on admission Charges/Coding Visit Charges Inpatient E&M: 40020 Subs Hosp L2
[2024-12-24] MEDS: Furosemide 40 MG/4 ML Vial IV (14:52)
[2024-12-24] MEDS: LORazepam 0.5 MG Tablet PO ×2 (14:52→22:18)
[2024-12-24] MEDS: Montelukast 10 MG Tablet PO (22:18)
[2024-12-25] VITALS (15 sets, daily range): BP systolic 103–122; BP diastolic 65–88; PULSE 85–111; RESP 18–20; TEMP 36.6–37; O2SAT 89–97
[2024-12-25] MEDS: 0.9% Saline Lock 10 ML Syringe IV ×5 (05:44→21:31)
--- NOTE | 2024-12-25 05:55 | NURSING ---
Attempted to complete walking SpO2 assessment. SpO2 88% at 4L O2 at rest, 92% at 5L O2. Pt became lightheaded during walking trial and needed to sit down. Unable to complete trial at this time.
[2024-12-25] MEDS: Ipratropium/Albuterol Sulfate 3 ML AMPUL.NEB INHALATION ×3 (07:16→20:05)
[2024-12-25 07:28] LABS: Hemoglobin 12.9 g/dL (12.0-15.0); Mean Corp Hgb Conc 32.3 g/dL (32-36); Mean Corpuscular Hgb 29.7 pg (27.0-32.0); Mean Corpuscular Volume 92.2 fL (81-99); Mean Platelet Vol. 9.6 fl (6.2-12.0); Platelet Count 269 K/mm3 (150-450); RBC Distribution Width CV 13.2 % (11.6-14.6); RBC Distribution Width SD 44.4 fl (35.1-43.9); Red Blood Count 4.34 M/mm3 (4.2-5.4); White Blood Count 9.3 K/mm3 (4.4-11.0)
[2024-12-25 07:56] LABS: Anion Gap 10 (5-15); BUN 15 mg/dL (4-19); BUN/Creat Ratio 27.8 RATIO (10-20); Calcium 9.7 mg/dL (7.6-11.0); Carbon Dioxide 36.3 mmol/L (22.0-29.0); Chloride 95 mmol/L (96-108); Creatinine, Serum 0.55 mg/dL (0.70-1.20); EST Glomerular Filtration Rate 102 (>60); Estimated Creatinine Clearance 77.29 ml/min (50-250); Glucose 131 mg/dL (70-99); Magnesium 2.4 mg/dL (1.5-2.2); Sodium Level 142 mmol/L (133-145)
--- NOTE | 2024-12-25 09:20 | CT_ITS ---
PROCEDURE: CTA CHEST W/WO CONTRAST REASON FOR EXAM: Hypoxia COMPARISON: 08/31/2023. FINDINGS: Hardware: None. Lymph nodes: No mediastinal hilar or axillary lymphadenopathy. Heart: Coronary artery calcifications are noted. RV/LV Diameter Ratio: N/A Thoracic Aorta: No thoracic aortic aneurysm or dissection. Pulmonary Vessels: No evidence of acute pulmonary emboli through the major subsegmental branches. Most Proximal Level of Embolus (if embolus present): N/A Lungs and Airways: Mild emphysematous changes are present. Scattered infiltrates in the right lower lobe right middle lobe and right upper lobe. Pleura: No pleural effusion. No pneumothorax. Upper Abdomen: Visualized portions of the upper abdominal viscera are unremarkable. Bones: Bone windows are unremarkable. Other: Small hiatal hernia CT/CTA Chest W/WO Contrast IMPRESSION: 1. No CT evidence of acute pulmonary embolism 2. Right lung pneumonia versus inflammatory process. 3. Mild emphysematous changes. 4. Small hiatal hernia One or more dose reduction techniques were used (e.g., Automated exposure contr ol, adjustment of the mA and/or kV according to patient size, use of iterative reconstruction technique). Reading Location: [facility]
[2024-12-25] MEDS: Furosemide 40 MG/4 ML Vial IV ×2 (09:59→15:35)
[2024-12-25] MEDS: Nystatin Powder 15gm Bottle 1 APPLIC TOPICAL (11:17)
[2024-12-25] MEDS: Enoxaparin 40 MG/0.4 ML Syringe SC (11:17)
[2024-12-25] MEDS: guaiFENesin 1,200 MG Tablet 1200 MG PO ×2 (11:17→21:30)
[2024-12-25] MEDS: Benzonatate 100 MG Capsule PO (12:03)
--- NOTE | 2024-12-25 13:56 | PCM.PN.HOSP ---
Reason for Visit Reason for Visit: Shortness of breath Subjective Subjective Patient states that her shortness of breath at rest is better. And overall she seems to be better however she complains of tightness in her chest still with exertion it does not seem to be improving. She currently has no symptoms. Denies any significant chest pain. Does not radiate. Does not have any associated nausea or diaphoresis. Objective Data Objective Data Vital Signs: Vital Signs Temp Pulse Resp BP Pulse Ox O2 Del Method O2 Flow Rate 98 F 93 18 109/88 H 94 Nasal Cannula 6 12/25/24 09:00 12/25/24 13:25 12/25/24 13:12/25/24 09:00 12/25/24 10:00 12/25/24 10:00 12/25/24 10:00 FiO2 40 12/21/24 12:20 Oxygen Flow Rate (L/min) 6 Oxygen Delivery Method Nasal Cannula Weight: 85.635 kg Body Mass Index (BMI) 30.4 Intake & Output: Intake and Output for Last 24 Hours 12/23/24 12/24/24 12/25/24 23:59 23:59 23:59 Intake Total 1360 / 1360 600 / 600 Output Total 1750 / 1750 1750 / 1750 Balance -390 / -390 -1150 / -1150 Lab / Micro Data 12/25/24 06:10 12/25/24 06:10 Labs: Laboratory Results - last 24 hr 12/25/24 06:10: WBC 9.3, RBC 4.34, Hgb 12.9, Hct 40.0, MCV 92.2, MCH 29.7, MCHC 32.3, RDW Std Deviation 44.4 H, RDW Coeff of Nick 13.2, Plt Count 269, MPV 9.6, Sodium 142, Potassium 4.0, Chloride Direct 95 L, Carbon Dioxide 36.3 H, Anion Gap 10, BUN 15, Creatinine 0.55 L, Estim Creat Clear Calc 77.29, Est GFR (MDRD) Non-Af 102, BUN/Creatinine Ratio 27.8 H, Glucose 131 H, Calcium 9.7, Phosphorus 5.0 H, Magnesium 2.4 H Micro: Microbiology 12/22/24 08:52 Mucosa - Nasopharyngeal Respiratory Panel (PCR) - Final 12/21/24 12:54 Mucosa - Nose SARS-CoV-2, Influenza & RSV (PCR) - Final Radiography Diagnostic Testing: Radiology Impression Chest CTA 12/25/24 09:20 IMPRESSION: 1. No CT evidence of acute pulmonary embolism 2. Right lung pneumonia versus inflammatory process. 3. Mild emphysematous changes. 4. Small hiatal hernia One or more dose reduction techniques were used (e.g., Automated exposure control, adjustment of the mA and/or kV according to patient size, use of iterative reconstruction technique). Reading Location: [facility] Physical Exam Const alert, oriented x3, no apparent distress and well nourished; Negative for average body habitus or healthy appearing Constitutional Narrative: Obese, disheveled, upper middle-aged, white female, lying in bed, appears comfortable, nontoxic HEENT normocephalic, head/scalp atraumatic and moist oral mucous membranes HEENT Narrative: Mallampati 3, no thrush Resp normal respiratory effort, no retractions, no use of accessory muscles and clear to auscultation bilaterally Resp Narrative: Severely diminished with no adventitious sounds today Auscultation: Negative for rales, rhonchi or wheezes Cardio regular rate, regular rhythm, S1 normal heart sound, S2 normal heart sound, no murmurs, no rub, no gallops and no clicks Cardio Narrative: Mild tachycardia GI normal to inspection, nondistended, normoactive bowel sounds, soft to palpation and non-tender Extremity no clubbing, cyanosis or edema Extremity Narrative: Wrinkling in bilateral lower extremities noted after diuresis, no cyanosis or clubbing Neuro oriented x3, moves all extremities and no focal motor deficits Speech: speech normal Psych Psych Narrative: Eye contact is good, patient interacts appropriately, affect is slightly flat Assessment & Plan Assessment/Plan (1) Dyspnea: (2) COPD with acute exacerbation: (3) Chest tightness: PLAN: Plan Acute shortness of breath with chronic hypoxic respiratory failure secondary to acute exacerbation of COPD -Baseline oxygen is 5 to 6 L and she remains on 5 to 6 L patient still markedly dyspneic with exertion which is why she requires continued hospitalization -Ambulatory pulse ox prior to discharge -COVID/flu/RSV/respiratory viral panel all negative -Continue Solu-Medrol 40 every 8 with plans for long taper at discharge with prednisone at discharge -Continue aggressive pulmonary toilet -Continue incentive spirometer -Continue Acapella -Continue Mucinex -Lasix 40 mg IV push times again today -Patient is still smoking -CTA of the chest was negative Chest tightness -Patient overall high risk for coronary disease with history of tobacco abuse -Patient with some exertional chest tightness but no specific chest pain -Will check stress test in a.m. given symptoms have persisted despite maximal treatment for her COPD exacerbation -CTA of the chest is negative for PE but does show significant emphysematous changes -Radiology called a pneumonia however on my review there is no consolidation present. 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
[2024-12-25] MEDS: BENZOCAINE/MENTHOL 1 LOZENGE MUCOUS MEM (15:43)
[2024-12-25] MEDS: Mineral Oil/Petrolatum Cr 1.75oz Bottle 1 APPLIC TOPICAL (18:06)
[2024-12-25] MEDS: Montelukast 10 MG Tablet PO (21:30)
[2024-12-26] VITALS (11 sets, daily range): BP systolic 96–111; BP diastolic 66–73; PULSE 88–105; RESP 16–22; TEMP 36.4–36.8; O2SAT 92–98
--- NOTE | 2024-12-26 05:55 | EKG12_ITS ---
Test Reason : AM EKG Blood Pressure : */* mmHG Vent. Rate : 88 BPM Atrial Rate : 88 BPM P-R Int : 140 ms QRS Dur : 78 ms QT Int : 368 ms P-R-T Axes : 82 63 72 degrees QTcB Int : 445 ms Normal sinus rhythm Possible Left atrial enlargement Borderline ECG When compared with ECG of 21-Dec-2024 12:01, HI interval has increased Confirmed by Eulalio Willoughby ([id number]), editor farm journal ALEKSANDRA AMADOR ([id number]) on 12/26/2024 2:04:19 PM Referred By: Moisés Calle Confirmed By: Eulalio Willoughby
[2024-12-26] MEDS: 0.9% Saline Lock 10 ML Syringe IV (05:56)
[2024-12-26 06:27] LABS: Hematocrit 41.1 % (37-47); Hemoglobin 13.5 g/dL (12.0-15.0); Mean Corp Hgb Conc 32.8 g/dL (32-36); Mean Corpuscular Hgb 29.9 pg (27.0-32.0); Mean Corpuscular Volume 90.9 fL (81-99); Mean Platelet Vol. 9.6 fl (6.2-12.0); Platelet Count 266 K/mm3 (150-450); RBC Distribution Width CV 13.2 % (11.6-14.6); RBC Distribution Width SD 43.5 fl (35.1-43.9); Red Blood Count 4.52 M/mm3 (4.2-5.4); White Blood Count 11.6 K/mm3 (4.4-11.0)
[2024-12-26] MEDS: Ipratropium/Albuterol Sulfate 3 ML AMPUL.NEB INHALATION ×3 (07:54→19:52)
[2024-12-26 10:29] LABS: Anion Gap 11 (5-15); BUN 23 mg/dL (4-19); BUN/Creat Ratio 37.5 RATIO (10-20); Calcium 9.7 mg/dL (7.6-11.0); Carbon Dioxide 35.6 mmol/L (22.0-29.0); Chloride 91 mmol/L (96-108); EST Glomerular Filtration Rate 99 (>60); Estimated Creatinine Clearance 77.29 ml/min (50-250); Glucose 142 mg/dL (70-99); Potassium 3.8 mmol/L (3.3-5.1); Sodium Level 138 mmol/L (133-145)
[2024-12-26] MEDS: guaiFENesin 1,200 MG Tablet 1200 MG PO ×2 (10:37→20:27)
[2024-12-26] MEDS: Mineral Oil/Petrolatum Cr 1.75oz Bottle 1 APPLIC TOPICAL ×2 (10:37→20:27)
[2024-12-26] MEDS: Nystatin Powder 15gm Bottle 1 APPLIC TOPICAL ×2 (10:37→20:27)
--- NOTE | 2024-12-26 10:54 | STRESSREP ---
Stress Test Report Date: 12/26/2024 Procedure: Pharmacologic stress nuclear imaging study Indications: Dyspnea on exertion Consent: Per the patient Procedure: The patient underwent pharmacologic (Regadenoson 0.4mg ) evaluation with a peak heart rate of 130 beats per minute (83%predicted maximal heart rate) and a peak blood pressure of 138/72 mmHg. The baseline ECG demonstrated sinus rhythm with occasional PVC. The peak pharmacologic ECG demonstrated no ischemic changes. Rare PVC noted post pharmacologic infusion. There was no complaint of chest discomfort during pharmacologic infusion or recovery. The patient was injected with 12.0 millicuries of technetium 99m Cardiolite and subsequently rest SPECT Cardiolite nuclear imaging was obtained in the horizontal long, vertical long, and short axis views. The patient underwent pharmacologic (Regadenoson) evaluation. The patient was injected with 36.0 millicuries of technetium 99m Cardiolite and subsequently stress SPECT Cardiolite nuclear imaging was obtained in the horizontal long, vertical long, and short axis views. A gated Cardiolite study at peak stress was obtained. The examination was stopped secondary to completion of protocol. Rest and stress SPECT Cardiolite nuclear imaging status post realignment, normalization, and attenuation correction demonstrate no fixed or reversible perfusion defects. There is end systolic thickening and brightening. The gated Cardiolite study demonstrates myocardial thickening and inward wall motion. The reported LVEF is 82%. Impression: 1. Pharmacologic (Regadenoson) evaluation 2. Peak pharmacologic ECG with no ischemic changes. 3. Rare PVC pretest and post pharmacologic infusion. 5. Rest and stress SPECT Cardiolite nuclear imaging demonstrate relative uniform tracer uptake and myocardial perfusion appearing within normal limits. 6. The gated Cardiolite study reports an LVEF of 82%. This note was generated with [employer] software. It may contain incorrect words, spelling, and punctuation that were not noted in checking the note before signing.
--- NOTE | 2024-12-26 12:29 | PN_ITS ---
Subjective Subjective Patient seen and examined. She complained of dizziness which is not new. She denied any shortness of breath, cough, chest pain, palpitations, nausea, vomiting or any other symptoms. Review of systems is otherwise negative. She is on 5L of oxygen which is her baseline. Objective Data Objective Data Vital Signs: Vital Signs Temp Pulse Resp BP Pulse Ox O2 Del Method O2 Flow Rate 98.2 F 100 18 96/69 96 Nasal Cannula 5 12/26/24 10:33 12/26/24 10:33 12/26/24 10:33 12/26/24 10:33 12/26/24 10:33 12/26/24 10:58 12/26/24 10:58 FiO2 40 12/21/24 12:20 Oxygen Flow Rate (L/min) 5 Oxygen Delivery Method Nasal Cannula Weight: 188 lb 12.669 oz Body Mass Index (BMI) 30.4 Intake & Output: Intake and Output for Last 24 Hours 12/24/24 12/25/24 12/26/24 23:59 23:59 23:59 Intake Total 1360 / 1360 1000 / 1000 Output Total 1750 / 1750 1750 / 1750 Balance -390 / -390 -750 / -750 Lab / Micro Data 12/26/24 05:39 12/26/24 05:39 Labs: Laboratory Results - last 24 hr 12/26/24 05:39: WBC 11.6 H, RBC 4.52, Hgb 13.5, Hct 41.1, MCV 90.9, MCH 29.9, MCHC 32.8, RDW Std Deviation 43.5, RDW Coeff of Nick 13.2, Plt Count 266, MPV 9.6, Sodium Cancelled 12/26/24 05:39: Sodium 138, Potassium Cancelled 12/26/24 05:39: Potassium 3.8, Chloride Direct Cancelled 12/26/24 05:39: Chloride Direct 91 L, Carbon Dioxide Cancelled 12/26/24 05:39: Carbon Dioxide 35.6 H, Anion Gap Cancelled 12/26/24 05:39: Anion Gap 11, BUN Cancelled 12/26/24 05:39: BUN 23 H, Creatinine Cancelled 12/26/24 05:39: Creatinine 0.60 L, Estim Creat Clear Calc Cancelled 12/26/24 05:39: Estim Creat Clear Calc 77.29, Est GFR (MDRD) Non-Af Cancelled 12/26/24 05:39: Est GFR (MDRD) Non-Af 99, BUN/Creatinine Ratio Cancelled 12/26/24 05:39: BUN/Creatinine Ratio 37.5 H, Glucose Cancelled 12/26/24 05:39: Glucose 142 H, Calcium Cancelled 12/26/24 05:39: Calcium 9.7 Micro: Microbiology 12/22/24 08:52 Mucosa - Nasopharyngeal Respiratory Panel (PCR) - Final 12/21/24 12:54 Mucosa - Nose SARS-CoV-2, Influenza & RSV (PCR) - Final Physical Exam Const alert, oriented x3, no apparent distress and well nourished General Appearance: cooperative HEENT normocephalic, head/scalp atraumatic, moist oral mucous membranes and oropharynx normal Eyes PERRL and EOMs intact bilaterally Neck no lymphadenopathy and supple Lymph Lymphatic: no lymphadenopathy noted and no lymphedema noted Resp Resp Narrative: diminiished breath sounds bibasally, no wheezing or crackles. On 5L of oxygen by nasal canula Cardio regular rate, regular rhythm, S1 normal heart sound, S2 normal heart sound and no murmurs GI normal to inspection, nondistended, normoactive bowel sounds, soft to palpation, non-tender and non-distended Extremity normal capillary refill, no clubbing, cyanosis or edema and no calf tenderness General Extremity: no tenderness to palpation of joints or extremities Skin General Skin Exam: no breakdown Neuro CN's II-XII intact bilaterally, no focal motor deficits and no sensory deficits noted Motor Exam: strength 5/5 throughout and general weakness Psych thought process normal, cooperative and affect normal Appearance: appropriate Assessment & Plan Assessment/Plan (1) COPD with acute exacerbation: (2) Dyspnea: (3) Chronic respiratory failure with hypoxia: PLAN: Plan #Acute on chronic hypoxic respiratory failure due to acute exacerbation of COPD * respiratory panel was negative * on IV solumedrol 40mg 8hr * on mucinex and lasix. * CTA chest was negative for any evidence of PE * breathing treatment with bronchodilators * titrate oxygen to maintain sats >90% * #Chest tightness and pain * CTA chest was negative for PE but showed emphysematous changes. 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 #Nicotine dependence * nicotine patch prn * DVT prophylaxis: lovenox Disposition: wants rehab. case management on board to help facilitate placement. Charges/Coding Visit Charges Inpatient E&M: 21591 Subs Hosp L2
[2024-12-26] MEDS: Enoxaparin 40 MG/0.4 ML Syringe SC (14:30)
[2024-12-26] MEDS: BENZOCAINE/MENTHOL 1 LOZENGE MUCOUS MEM (14:38)
[2024-12-26] MEDS: Benzonatate 100 MG Capsule PO ×2 (14:38→20:25)
[2024-12-26] MEDS: Montelukast 10 MG Tablet PO (20:26)
--- NOTE | 2024-12-26 23:20 | NURSING ---
This RN taking over care at this time
[2024-12-27] VITALS (10 sets, daily range): BP systolic 108–133; BP diastolic 65–79; PULSE 85–110; RESP 16–20; TEMP 36.6–36.9; O2SAT 92–97
[2024-12-27] MEDS: LORazepam 0.5 MG Tablet PO ×2 (02:10→21:27)
[2024-12-27] MEDS: 0.9% Saline Lock 10 ML Syringe IV ×2 (05:33→19:52)
[2024-12-27] MEDS: Ipratropium/Albuterol Sulfate 3 ML AMPUL.NEB INHALATION ×3 (07:23→19:16)
[2024-12-27 07:27] LABS: Absolute Lymphocyte Count 0.31 X10^3/uL (0.83-4.51); Absolute Neutrophil Count 8.5 X10^3/uL (2.0-7.7); Basophil# 0.02 X10^3/uL; Basophil% 0.2 % (0-1); Hematocrit 39.1 % (37-47); Hemoglobin 12.8 g/dL (12.0-15.0); Lymphocyte # 0.31 X10^3/ul (0.83-4.51); Lymphocyte % 3.3 % (19-41); Mean Corp Hgb Conc 32.7 g/dL (32-36); Mean Corpuscular Hgb 29.8 pg (27.0-32.0); Mean Corpuscular Volume 90.9 fL (81-99); Mean Platelet Vol. 9.7 fl (6.2-12.0); Monocyte# 0.43 X10^3/uL; Monocyte% 4.6 % (0-10); NRBC Flagged by Analyzer 0 % (0-5); Neutrophil # 8.45 X10^3/uL (2.7-7.7); POSITIVE DIFFERENTIAL YES; Platelet Count 252 K/mm3 (150-450); RBC Distribution Width CV 13.2 % (11.6-14.6); RBC Distribution Width SD 43.5 fl (35.1-43.9); White Blood Count 9.3 K/mm3 (4.4-11.0)
[2024-12-27] MEDS: Enoxaparin 40 MG/0.4 ML Syringe SC (08:46)
[2024-12-27] MEDS: guaiFENesin 1,200 MG Tablet 1200 MG PO ×2 (08:46→21:27)
[2024-12-27] MEDS: Nystatin Powder 15gm Bottle 1 APPLIC TOPICAL ×2 (08:46→21:27)
[2024-12-27] MEDS: Mineral Oil/Petrolatum Cr 1.75oz Bottle 1 APPLIC TOPICAL ×2 (08:46→21:28)
[2024-12-27 09:10] LABS: Anion Gap 12 (5-15); BUN 18 mg/dL (4-19); BUN/Creat Ratio 33.5 RATIO (10-20); Calcium,Total 8.8 mg/dL (7.6-11.0); Carbon Dioxide 32.3 mmol/L (21.0-32.0); Chloride 96 mmol/L (98-108); Creatinine, Serum 0.53 mg/dL (0.70-1.20); EST Glomerular Filtration Rate 103 (>60); Estimated Creatinine Clearance 77.29 ml/min (50-250); Glucose 165 mg/dL (70-99); Potassium 3.9 mmol/L (3.3-5.1); Sodium Level 140 mmol/L (133-145)
--- NOTE | 2024-12-27 11:00 | PN_ITS ---
Subjective Subjective Patient seen and examined. She still complains of feeling short of breath though she is on her baseline 5 L of oxygen. She still says she wants to go to rehab but she does not think she can take care of herself at home. Review of systems otherwise negative. She is on her baseline 5 L of oxygen. Objective Data Objective Data Vital Signs: Vital Signs Temp Pulse Resp BP Pulse Ox O2 Del Method O2 Flow Rate 97.8 F 86 18 108/76 94 Nasal Cannula 5 12/27/24 08:43 12/27/24 08:43 12/27/24 08:43 12/27/24 08:43 12/27/24 08:43 12/27/24 08:43 12/27/24 08:43 FiO2 40 12/21/24 12:20 Oxygen Flow Rate (L/min) 5 Oxygen Delivery Method Nasal Cannula Weight: 188 lb 12.669 oz Body Mass Index (BMI) 30.4 Intake & Output: Intake and Output for Last 24 Hours 12/25/24 12/26/24 12/27/24 23:59 23:59 23:59 Intake Total 1000 / 1000 Output Total 1750 / 1750 Balance -750 / -750 Lab / Micro Data 12/27/24 06:33 12/27/24 06:33 Labs: Laboratory Results - last 24 hr 12/27/24 06:33: WBC 9.3, RBC 4.30, Hgb 12.8, Hct 39.1, MCV 90.9, MCH 29.8, MCHC 32.7, RDW Std Deviation 43.5, RDW Coeff of Nick 13.2, Plt Count 252, MPV 9.7, Immature Gran % (Auto) 0.900, Neut % (Auto) 91.0 H, Lymph % (Auto) 3.3 L, [place] % (Auto) 4.6, Eos % (Auto) 0.0, Baso % (Auto) 0.2, Absolute Neuts (auto) 8.5 H, A bsolute Lymphs (auto) 0.31 L, Nucleated RBC % 0, Sodium 140, Potassium 3.9, C hloride 96 L, Carbon Dioxide 32.3 H, Anion Gap 12, BUN 18, Creatinine 0.53 L, Estim Creat Clear Calc 77.29, Est GFR (MDRD) Non-Af 103, BUN/Creatinine Ratio 33.5 H, Glucose 165 H, Calcium 8.8 Micro: Microbiology 12/22/24 08:52 Mucosa - Nasopharyngeal Respiratory Panel (PCR) - Final 12/21/24 12:54 Mucosa - Nose SARS-CoV-2, Influenza & RSV (PCR) - Final Physical Exam Const alert, oriented x3 and no apparent distress General Appearance: cooperative HEENT normocephalic, head/scalp atraumatic, moist oral mucous membranes and oropharynx normal Eyes PERRL and EOMs intact bilaterally Neck no lymphadenopathy and supple Lymph Lymphatic: no lymphadenopathy noted and no lymphedema noted Resp normal respiratory effort, no retractions, no use of accessory muscles and clear to auscultation bilaterally Resp Narrative: diminiished breath sounds bibasally, no wheezing or crackles. On 5L of oxygen by nasal canula Cardio regular rate, regular rhythm, S1 normal heart sound, S2 normal heart sound and no murmurs GI normal to inspection, nondistended, normoactive bowel sounds, soft to palpation, non-tender and non-distended Extremity normal capillary refill, no clubbing, cyanosis or edema and no calf tenderness General Extremity: no tenderness to palpation of joints or extremities Skin General Skin Exam: no breakdown Neuro oriented x3, CN's II-XII intact bilaterally, moves all extremities, no focal motor deficits and no sensory deficits noted Sensorium / Orientation: awake and alert Speech: speech normal Motor Exam: strength 5/5 throughout and general weakness Psych thought process normal, cooperative and affect normal Appearance: appropriate Assessment & Plan Assessment/Plan (1) COPD with acute exacerbation: (2) Dyspnea: (3) Chronic respiratory failure with hypoxia: PLAN: Plan #Acute on chronic hypoxic respiratory failure due to acute exacerbation of COPD * respiratory panel was negative * on IV solumedrol 40mg 8hr * on mucinex and lasix. * CTA chest was negative for any evidence of PE * breathing treatment with bronchodilators * titrate oxygen to maintain sats >90% * Switch IV Solu-Medrol to p.o. prednisone today. * #Chest tightness and pain * CTA chest was negative for PE but showed emphysematous changes. 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 #Nicotine dependence * nicotine patch prn * DVT prophylaxis: lovenox Disposition: wants rehab. case management on board to help facilitate placement. Charges/Coding Visit Charges Inpatient E&M: 15298 Subs Hosp L2
--- NOTE | 2024-12-27 12:50 | CASEMGMT ---
Per RN CM patient would like counseling resources. SW took a list of local mental health providers to patient's room. SW met with patient. Introduced self and role at [facility]. SW provided patient with the list of mental health providers. Susu WILDER
[2024-12-27] MEDS: Benzonatate 100 MG Capsule PO (19:52)
[2024-12-27] MEDS: Montelukast 10 MG Tablet PO (21:27)
[2024-12-28 03:40] VITALS: BP 100/63; PULSE 89; RESP 16; TEMP 36.3; O2SAT 96
[2024-12-28 06:24] LABS: Absolute Lymphocyte Count 0.65 X10^3/uL (0.83-4.51); Absolute Neutrophil Count 7.2 X10^3/uL (2.0-7.7); Basophil# 0.01 X10^3/uL; Basophil% 0.1 % (0-1); Eosinophil# 0.03 X10^3/uL; Eosinophils% 0.3 % (0-5); Hematocrit 37.4 % (37-47); Hemoglobin 12.2 g/dL (12.0-15.0); Lymphocyte # 0.65 X10^3/ul (0.83-4.51); Lymphocyte % 7.3 % (19-41); Mean Corp Hgb Conc 32.6 g/dL (32-36); Mean Corpuscular Hgb 30.2 pg (27.0-32.0); Mean Corpuscular Volume 92.6 fL (81-99); Mean Platelet Vol. 9.4 fl (6.2-12.0); Monocyte# 0.86 X10^3/uL; Monocyte% 9.7 % (0-10); NRBC Flagged by Analyzer 0 % (0-5); Neutrophil % 81.4 % (47-70); Platelet Count 235 K/mm3 (150-450); RBC Distribution Width CV 13.2 % (11.6-14.6); RBC Distribution Width SD 44.5 fl (35.1-43.9); Red Blood Count 4.04 M/mm3 (4.2-5.4); White Blood Count 8.9 K/mm3 (4.4-11.0)
[2024-12-28 06:44] LABS: Anion Gap 9 (5-15); BUN 17 mg/dL (4-19); BUN/Creat Ratio 29.3 RATIO (10-20); Calcium,Total 8.6 mg/dL (7.6-11.0); Carbon Dioxide 33.5 mmol/L (21.0-32.0); Chloride 96 mmol/L (98-108); Creatinine, Serum 0.57 mg/dL (0.70-1.20); EST Glomerular Filtration Rate 101 (>60); Estimated Creatinine Clearance 77.29 ml/min (50-250); Glucose 78 mg/dL (70-99); Potassium 3.3 mmol/L (3.3-5.1); Sodium Level 139 mmol/L (133-145)
[2024-12-28 08:00] VITALS: O2SAT 94
[2024-12-28 08:11] VITALS: BP 101/63; PULSE 92; RESP 20; TEMP 36.1; O2SAT 99
[2024-12-28] MEDS: guaiFENesin 1,200 MG Tablet 1200 MG PO (08:12)
[2024-12-28] MEDS: Enoxaparin 40 MG/0.4 ML Syringe SC (08:12)
[2024-12-28] MEDS: Mineral Oil/Petrolatum Cr 1.75oz Bottle 1 APPLIC TOPICAL (08:12)
[2024-12-28] MEDS: predniSONE 20 MG Tablet 40 MG PO (08:12)
[2024-12-28 08:45] VITALS: O2SAT 91; O2SAT 98
--- NOTE | 2024-12-28 13:57 | DCINST_ITS ---
Discharge Instructions Diet Discharge Diet: Low fat / Low cholesterol DC O2, CPAP, BIPAP needs Home O2 Discharge instructions: No Dressing / Incision Discharge Activity: Return to Normal Activity Weight Bearing Status: Weight bearing as tolerated Dressing / Incision Call your doctor if you observe: Fever of 101 or Higher, Shortness of breath, Dizziness, Swelling in the ankles and Chest pain Follow Up Care Test Results: Test results from this visit will be discussed in further detail at your follow- up appointment, if applicable. Discharge Plan Admission Admit Date/Time: 12/21/24 17:16 Primary Reason for Your Visit: COPD exacerbation Attending Provider: Marisa St Primary Care Provider: Emily Silva Consulting Providers: Massimo Peña; Adele Becerra Instructions Patient Instructions: COPD Controlled Breathing Dc, COPD Meds Discharge Orders/Prescriptions Prescriptions: New prednisone 20 mg Tablet 40 mg PO BREAKFAST 5 Days Qty: 10 0RF Continued fluticasone propion-salmeterol [Advair HFA] 230-21 mcg/actuation HFA aerosol inhaler 2 inh inhalation BID Qty: 3 3RF Spiriva Respimat 2.5 mcg/actuation mist 2 puff inhalation ONCE Qty: 4 11RF Referrals / Follow Up: Emily Silva MD [Primary Care Provider] - Within 1 Week Disposition Disposition (needs filled in before D/C Order can be placed): Home, Self Care
--- NOTE | 2024-12-28 13:58 | DS.PCM_ITS ---
Providers Date of Admission: 12/21/24 Date of Discharge: 12/28/24 Primary Care Physician: Dr. Emily Silva MD Reason For Visit: COPD EX Diagnosis Discharge Diagnosis (1) COPD with acute exacerbation: Status: Chronic Code(s): J44.1 - Chronic obstructive pulmonary disease with (acute) exacerbation (2) Dyspnea: Status: Acute Code(s): R06.00 - Dyspnea, unspecified (3) Chronic respiratory failure with hypoxia: Status: Chronic Code(s): J96.11 - Chronic respiratory failure with hypoxia Plan #Acute on chronic hypoxic respiratory failure due to acute exacerbation of COPD * respiratory panel was negative * on IV solumedrol 40mg 8hr * on mucinex and lasix. * CTA chest was negative for any evidence of PE * breathing treatment with bronchodilators * titrate oxygen to maintain sats >90% * Switch IV Solu-Medrol to p.o. prednisone today. * #Chest tightness and pain * CTA chest was negative for PE but showed emphysematous changes. 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 #Nicotine dependence * nicotine patch prn * DVT prophylaxis: lovenox Disposition: wants rehab. case management on board to help facilitate placement. Medications at Discharge Home Medications fluticasone propionate 230 mcg-salmeterol 21 mcg/actuation HFA inhaler (Advair HFA) 2 inh inhalation BID sob #3 ea 10/12/24 tiotropium bromide 2.5 mcg/actuation mist for inhalation (Spiriva Respimat) 2 puff inhalation ONCE SOB #4 grams 10/12/24 prednisone 20 mg tablet 40 mg (2 x 20 mg) PO BREAKFAST 5 days #10 tabs 12/28/24 Hospital Course Operations None Procedures None Summary of Care Provided Minutes Spent on Discharge: 43 Hospital Course: Patient is a 64-year-old female with a past medical history as outlined was admitted through the ED on 12/21/2024 with complaint of shortness of breath for 2 days prior to admission. She had an assisted cough. She had a history of chronic respiratory failure due to COPD and usually will 5 L of oxygen at home. In the ED she was requiring 6 L of oxygen. Respiratory panel was negative for COVID, flu or RSV. She was admitted and managed for acute COPD exacerbation. She was started on IV Solu-Medrol and breathing treatments bronchodilators. She did have CTA of the chest which was negative for any evidence of PE. Hospital course was complicated by chest tightness and she had a stress test which was negative for any evidence of ischemia. Patient was weaned down to her baseline 5 L of oxygen. Patient was initially reluctant to go home and wanted to go to a rehab facility. However this was denied by insurance company as she was working well with physical therapy. Patient was therefore discharged home with home health on 12/28/2024. She was discharged on a 5-day course of p.o. prednisone 40 mg daily. 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 Patient seen and examined prior to discharge. She felt well and had no complaints. She was on 5 L of oxygen. Review of systems otherwise negative. Labs and vitals reviewed. Home medication reviewed and reconciled. Physical Exam Const alert, oriented x3 and no apparent distress General Appearance: cooperative and comfortable Orientation / Consciousness: awake HEENT normocephalic, head/scalp atraumatic, hearing grossly normal bilaterally, moist oral mucous membranes and oropharynx normal Mouth: oral and palatal mucosa normal Eyes PERRL and EOMs intact bilaterally Neck no lymphadenopathy and supple Lymph Lymphatic: no lymphadenopathy noted and no lymphedema noted Resp Resp Narrative: diminiished breath sounds bibasally, no wheezing or crackles. On 5L of oxygen by nasal canula Cardio regular rate, regular rhythm, S1 normal heart sound, S2 normal heart sound and no murmurs GI normal to inspection, nondistended, normoactive bowel sounds, soft to palpation, non-tender and non-distended Extremity normal to inspection, full ROM, normal capillary refill, no clubbing, cyanosis or edema and no calf tenderness General Extremity: no tenderness to palpation of joints or extremities Skin General Skin Exam: no breakdown Neuro oriented x3, CN's II-XII intact bilaterally, moves all extremities, no focal motor deficits and no sensory deficits noted Sensorium / Orientation: awake and alert Speech: speech normal Motor Exam: strength 5/5 throughout and general weakness Psych thought process normal, cooperative and affect normal Appearance: appropriate Weight / BMI Weight Weight: 188 lb 12.686 oz Body Mass Index (BMI) 30.4 ABG / Lab / Microbiology Data 12/28/24 05:16 12/28/24 05:16 Laboratory: Laboratory Results - last 24 hr 12/28/24 05:16: WBC 8.9, RBC 4.04 L, Hgb 12.2, Hct 37.4, MCV 92.6, MCH 30.2, MCHC 32.6, RDW Std Deviation 44.5 H, RDW Coeff of Nick 13.2, Plt Count 235, MPV 9.4, Immature Gran % (Auto) 1.200 H, Neut % (Auto) 81.4 H, Lymph % (Auto) 7.3 L, [place] % (Auto) 9.7, Eos % (Auto) 0.3, Baso % (Auto) 0.1, Absolute Neuts (auto) 7.2, Absolute Lymphs (auto) 0.65 L, Nucleated RBC % 0, Sodium 139, Potassium 3.3, Chloride 96 L, Carbon Dioxide 33.5 H, Anion Gap 9, BUN 17, Creatinine 0.57 L, Estim Creat Clear Calc 77.29, Est GFR (MDRD) Non-Af 101, BUN/Creatinine Ratio 29.3 H, Glucose 78, Calcium 8.6 Microbiology: Microbiology 12/28/24 08:33 Stool Enteric Bacteriology - Final 12/28/24 08:33 Stool Clostridioides difficile (PCR) - Final 12/22/24 08:52 Mucosa - Nasopharyngeal Respiratory Panel (PCR) - Final 12/21/24 12:54 Mucosa - Nose SARS-CoV-2, Influenza & RSV (PCR) - Final D/C Instructions Discharge Diet: Low fat / Low cholesterol Discharge Activity: Return to Normal Activity Weight Bearing Status: Weight bearing as tolerated Call your doctor if you observe: Fever of 101 or Higher, Shortness of breath, Dizziness, Swelling in the ankles and Chest pain DC O2, CPAP, BIPAP Needs PSN CPAP & BiPAP: BiPAP & CPAP Settings per PSN Mode AIRVO 12/21/24 12:20 Bipap Delivery Device Nasal Pillows 12/21/24 12:20 Fraction of Inspired Oxygen ( 40 12/21/24 12:20 FIO2) Total Flow Rate 40 12/21/24 12:20 Home O2 Discharge instructions: Yes Type of respiratory needs?: Oxygen (5) Oxygen frequency: Continuous Continuous oxygen liters per minute: 5 DC home with Oxygen: Yes Home O2 MD Review: I have reviewed the oxygen testing, and the patient qualifies for home oxygen equipment and portability. The patient is mobile in the home and the community. Meaningful Use Info Meaningful Use Meaningful Use Diagnoses (Choose all that apply): None applicable Ischemic Stroke Statin Dosing Therapy Reference: STATIN DOSE THERAPY REFERENCE: * Patients > 75 years receive moderate or high dose statin therapy. * Patients 75 years or YOUNGER should receive HIGH intensity statin dose unless contraindicated. You will be required to document reason for non-treatment if statin daily dose does not meet guidelines. HIGH DOSE STATIN THERAPY DAILY Atorvastatin > than or = to 40 mg Rosuvastatin > than or = to 20 mg Amlodipine + Atorvastatin > than or = to 2.5/40 mg Ezetimibe + Simvastatin 10/80 mg Simvastatin 80mg Discharge Plan Admission Admit Date/Time: 12/21/24 17:16 Primary Reason for Your Visit: COPD exacerbation Attending Provider: Marisa St Primary Care Provider: Emily Silva Consulting Providers: Massimo Peña; Adele Becerra Instructions Patient Instructions: COPD Controlled Breathing Dc, COPD Meds Discharge Orders/Prescriptions Prescriptions: New prednisone 20 mg Tablet 40 mg PO BREAKFAST 5 Days Qty: 10 0RF Continued fluticasone propion-salmeterol [Advair HFA] 230-21 mcg/actuation HFA aerosol inhaler 2 inh inhalation BID Qty: 3 3RF Spiriva Respimat 2.5 mcg/actuation mist 2 puff inhalation ONCE Qty: 4 11RF Referrals / Follow Up: Emily Silva MD [Primary Care Provider] - Within 1 Week Disposition Disposition (needs filled in before D/C Order can be placed): Home, Self Care Charges/Coding Visit Charges Inpatient E&M: 80335 Disch Hosp >30min
--- NOTE | 2024-12-28 14:24 | CASEMGMT ---
Patient has order for discharge. Script received for walker and referral sent to [facility] via [facility] with arrangement for walker to be delivered to room prior to discharge. RN CM in to discuss needs at discharge. RN CM updated patient regarding walker setup and provided information regarding CCN referral. Patient denies further needs or concerns. Patient states she has portable oxygen for at discharge. Patient had no further questions or concerns.
[2024-12-28 15:09] VITALS: BP 130/84; PULSE 105; RESP 20; TEMP 36.6; O2SAT 94
[2024-12-28] MEDS: LORazepam 0.5 MG Tablet PO (15:58)
--- NOTE | 2024-12-29 10:52 | CCN.REFER ---
VM LEFT ON [phone] TO DISCUSS CCN SERVICES
--- NOTE | 2025-01-04 08:47 | CCN.REFER ---
MULTIPLE CALLS TO PATIENT @ [phone] WITH NO RETURNED CALLS.
== END 2024-12-28 16:25 | disposition home or self-care (01) | DRG 190 ==
LOC: ED 17:24 → PCU 18:11
PROVIDERS: Internal Medicine; Emergency Provider Emergency Medicine; PCP Internal Medicine; Referring Provider Emergency Medicine; Visit Provider Student in an Organized Health Care Education/Training Program
DX: J44.1 Chronic obstructive pulmonary disease with (acute) exacerbation (principal); J96.21 Acute and chronic respiratory failure with hypoxia; E66.9 Obesity, unspecified; F17.210 Nicotine dependence, cigarettes, uncomplicated; D75.1 Secondary polycythemia; G47.33 Obstructive sleep apnea (adult) (pediatric); Z99.81 Dependence on supplemental oxygen; Z79.51 Long term (current) use of inhaled steroids; Z68.30 Body mass index [BMI] 30.0-30.9, adult; R07.89 Other chest pain
CPT/HCPCS: 36415; 36600; 71045; 71275; 78452; 80048; 82803; 83735; 84100; 85025; 85027; 87493; 87506; 87631; 87633; 93005; 93017; 94002; 94640; 94660; 94667; 94668; 97116; 97161; 97530; 99285; 99406; A9500; Q9967; A4216; J1940; J2785

== ENCOUNTER → 2025-01-04 | Outpatient (CLI) | payer MEDICARE, SELFPAY | END | disposition home or self-care (01) | LOC: PSN 11:04 | PROVIDERS: PCP Internal Medicine; Referring Provider Nurse Practitioner Acute Care; Visit Provider Nurse Practitioner Acute Care | DX: J43.9 Emphysema, unspecified (principal) | CPT/HCPCS: 94060; 94726; 94729 ==

== ENCOUNTER → 2025-09-12 | Outpatient (CLI) | payer MEDICARE, SELFPAY ==
--- NOTE | 2025-09-12 11:59 | BI_ITS ---
EXAM: SCRN MAMM (CAD)W/LOBO BILAT DATE: 09/12/2025 CLINICAL HISTORY: F, Age 65 y/o , ANNUAL SCREENING Sister with breast cancer. TECHNIQUE: Procedure Code: [id number] Modality: MG Procedure: SCRN MAMM (CAD)W/LOBO BILAT COMPARISON: Prior exam(s) dated July 07, 2024.. FINDINGS: TISSUE DENSITY: The breasts are almost entirely fatty. Bilateral Breast Mammographic Findings: No significant masses, calcifications or other abnormalities are identified. No suspicious masses, areas of developing architectural distortion, or suspicious calcifications. There has been no significant interval change. BI/SCRN MAMM (CAD)W/LOBO BILAT IMPRESSION: Stable bilateral screening mammogram. OVERALL FINAL ASSESSMENT BI-RADS 1: NEGATIVE. RECOMMENDATION: Routine annual follow-up in 1 Year Additional Recommendation none A letter with findings and recommendations will be mailed to the patient. Reading Location: [facility]
== END | disposition home or self-care (01) ==
PROVIDERS: PCP Internal Medicine; Referring Provider Internal Medicine Hematology & Oncology; Visit Provider Internal Medicine Hematology & Oncology
DX: Z12.31 Encounter for screening mammogram for malignant neoplasm of breast (principal)
CPT/HCPCS: 77063; 77067